=== PATIENT | male | born 1940 | race Caucasian/White ===

== ENCOUNTER 2018-08-07 15:06 | Inpatient (IN) | payer MEDICARE, SELFPAY ==
[2018-08-07] VITALS (8 sets, daily range): BP systolic 118–143; BP diastolic 60–107; PULSE 64–66; RESP 16–22; TEMP 36.7–37.9; O2SAT 92–94; BMI 33.1; BMI 32.4
--- NOTE | 2018-08-07 15:22 | EKG12_ITS ---
Test Reason : REPEAT Blood Pressure : / mmHG Vent. Rate : 065 BPM Atrial Rate : 065 BPM P-R Int : 186 ms QRS Dur : 108 ms QT Int : 454 ms P-R-T Axes : 033 -60 -62 degrees QTc Int : 472 ms Normal sinus rhythm Left axis deviation Inferior infarct , age undetermined ST & T wave abnormality, consider lateral ischemia Abnormal ECG Confirmed by BIANCA ORTIZ, ALYSSA ([id number]), editor producer FUAD MEZA ([id number]) on 08/12/2018 3:56:24 PM Referred By: Tiago Orr Confirmed By:ALYSSA VALENZUELA MD
--- NOTE | 2018-08-07 15:30 | ED.VISSUMM ---
- ER Visit Summary Date of Service: 08/07/18 Chief Complaint: [Confusion, abdominal pain] History of Present Illness: The patient is a 78 M [presents the emergency department via EMS from long-term. Patient is at the assisted living side and apparently yesterday complained of some abdominal pain and stated that he needed something to have a bowel movement. Patient did end up having a bowel movement this morning. Currently the patient does not have abdominal pain. Nursing staff today noted that he was more confused than usual in too week to ambulate and care for himself. Patient was incontinent of urine today. Patient does complain of dysuria. He has not had any vomiting or diarrhea. Patient also developed a cough yesterday. Patient denies any chest pain or shortness of breath. Patient is somewhat of a poor historian and is confused to time and place. Family states that patient has gotten this way before when he has had infections. Patient was noted to have a low-grade fever on arrival to the emergency department.] Physical Examination: [HEENT-PERRLA, EOMI. Cranial nerves II through XII grossly intact. TMs clear. Mucous membranes moist. No adenopathy. Cardiovascular-regular rate and rhythm without murmur or ectopy Lungs-clear to auscultation, chest wall stable without crepitus or subcu emphysema Abdomen-normoactive bowel sounds, soft, nontender, no rebound or rigidity, no peritoneal signs. Neuro exam-no focal weakness. NIH stroke scale is 0. Extremities-intact ?4, normal range of motion, normal pulses, atraumatic] Test Results: [EKG obtained showed a sinus rhythm with ventricular rate of 69 bpm with old inferior wall infarct noted and some nonspecific ST changes. No old EKGs available for comparison.] CBC with differential obtained showed a white count of 14.1, hemoglobin 14.8, hematocrit 45, platelets 117. Chemistries unremarkable. LFTs were normal. AST was 190. Troponin was 22. Chest x-ray was unremarkable. Urinalysis positive for infection. Emergency Department Course and Treatment: [Patient had blood cultures ordered as well as urine cultures. Patient was started on Rocephin 1 g IV. Patient was given Plavix as he is allergic to aspirin.] Treatment Plan: [Admit for further workup and evaluation. Patient did have a repeat EKG that is unchanged from the first 1.] Disposition: [Admit] Impression: [UTI Confusion Non-ST elevation CT] This note was generated with [employer] dictation software. It may contain incorrect words, spelling, and punctuation that were not noted in review of the chart prior to signing ED Disposition - Plan for ED Patient: Chief Complaint: Abd Pain Referrals: Radhames Pierce [Primary Care Provider] -
--- NOTE | 2018-08-07 15:33 | ED.DCSUM_ITS ---
- ER Visit Summary Date of Service: 08/07/18 Chief Complaint: [Confusion, abdominal pain] History of Present Illness: The patient is a 78 M [presents the emergency department via EMS from [facility]. Patient is at the assisted living side and apparently yesterday complained of some abdominal pain and stated that he needed something to have a bowel movement. Patient did end up having a bowel movement this morning. Currently the patient does not have abdominal pain. Nursing staff today noted that he was more confused than usual in too week to ambulate and care for himself. Patient was incontinent of urine today. Patient does complain of dysuria. He has not had any vomiting or diarrhea. Patient also developed a cough yesterday. Patient denies any chest pain or shortness of breath. Patient is somewhat of a poor historian and is confused to time and place. Family states that patient has gotten this way before when he has had infections. Patient was noted to have a low-grade fever on arrival to the emergency department.] Physical Examination: [HEENT-PERRLA, EOMI. Cranial nerves II through XII grossly intact. TMs clear. Mucous membranes moist. No adenopathy. Cardiovascular-regular rate and rhythm without murmur or ectopy Lungs-clear to auscultation, chest wall stable without crepitus or subcu emphysema Abdomen-normoactive bowel sounds, soft, nontender, no rebound or rigidity, no peritoneal signs. Neuro exam-no focal weakness. NIH stroke scale is 0. Extremities-intact ?4, normal range of motion, normal pulses, atraumatic] Test Results: [EKG obtained showed a sinus rhythm with ventricular rate of 69 bpm with old inferior wall infarct noted and some nonspecific ST changes. No old EKGs available for comparison.] CBC with differential obtained showed a white count of 14.1, hemoglobin 14.8, hematocrit 45, platelets 117. Chemistries unremarkable. LFTs were normal. AST was 190. Troponin was 22. Chest x-ray was unremarkable. Urinalysis positive for infection. Emergency Department Course and Treatment: [Patient had blood cultures ordered as well as urine cultures. Patient was started on Rocephin 1 g IV. Patient was given Plavix as he is allergic to aspirin.] Treatment Plan: [Admit for further workup and evaluation. Patient did have a repeat EKG that is unchanged from the first 1.] Disposition: [Admit] Impression: [UTI Confusion Non-ST elevation [place]] This note was generated with [employer] dictation software. It may contain incorrect words, spelling, and punctuation that were not noted in review of the chart prior to signing ED Disposition - Plan for ED Patient: Chief Complaint: Abd Pain Referrals: Radhames Pierce [Primary Care Provider] -
[2018-08-07] MEDS: Acetaminophen 325 MG Tablet 650 MG PO (15:41)
[2018-08-07] MEDS: 0.9% Normal Saline 1,000 ML 150 ML IV ×2 (15:43→19:41)
--- NOTE | 2018-08-07 15:52 | RAD_ITS ---
STUDY: X-RAY CHEST REASON FOR EXAM: Male, 78 years old. Shortness of breath, dyspnea, cough, confusion TECHNIQUE: Portable upright AP chest COMPARISON: None. FINDINGS: Low inspiratory effort. Clear bilateral lungs. Normal cardiomediastinal silhouette, [place] and pleural margins. No acute osseous or upper abdominal process. RAD/Chest 1 View (Portable) IMPRESSION: No acute cardiopulmonary process. Electronically Signed: Garrick Tony, at 17:02 EDT Tel , Service support ,
[2018-08-07 15:55] LABS: Absolute Lymphocyte Count 2.04 X10^3/ul (0.83-4.51); Absolute Neutrophil Count 8.7 X10^3/uL (2.0-7.7); Basophil# 0.02 X10^3/uL; Basophil% 0.1 % (0-1); Eosinophil# 0.01 X10^3/uL; Eosinophils% 0.1 % (0-5); Hematocrit 44.7 % (40-54); Hemoglobin 14.8 g/dl (13.0-16.5); Lymphocyte # 2.04 X10^3/ul (4.0); Lymphocyte % 14.4 % (19-41); Mean Corp Hgb Conc 33.1 g/gl (32-36); Mean Corpuscular Hgb 30.1 pg (27.0-32.0); Mean Corpuscular Volume 90.9 fL (80-94); Mean Platelet Vol. 9.6 fl (6.2-12.0); Monocyte# 3.35 X10^3/uL; Monocyte% 23.7 % (0-10); Neutrophil % 61.6 % (47-70); Platelet Count 117 K/mm3 (150-450); RBC Distribution Width CV 13.3 % (11.6-14.6); RBC Distribution Width SD 43.5 fl (35.1-43.9); Red Blood Count 4.92 M/mm3 (4.6-6.2); White Blood Count 14.1 K/mm3 (4.4-11.0)
[2018-08-07 16:00] LABS: Differential Indicated SCAN CRITERIA MET; POSITIVE COUNT NO; POSITIVE DIFFERENTIAL YES; POSITIVE MORPHOLOGY YES
[2018-08-07 16:22] LABS: Differential Comment SCANNED
[2018-08-07 16:29] LABS: ALB/GLOB Ratio 0.8 RATIO (0.9-2.4); AST(SGOT) 190 U/L (15-37); Alanine Aminotransfer ALT/SGPT 33 U/L (16-61); Albumin, Serum 3.5 g/dL (3.2-5.0); Alkaline Phosphatase 80 U/L (45-117); Anion Gap 5 (5-15); BUN 27 mg/dL (7-18); BUN/Creat Ratio 16.9 RATIO (10-20); Calcium,Total 8.8 mg/dL (8.5-10.1); Chloride 106 mmol/L (98-107); EST Glomerular Filtration Rate 45 mL/min (>60); Est Glom Filt Rate - Afr Amer 54 mL/min (>60); Globulin 4.2 g/dL (2.2-4.2); Glucose 112 mg/dL (74-106); Potassium 4.3 mmol/L (3.5-5.1); Protein, Total 7.7 g/dL (6.4-8.2); Sodium Level 138 mmol/L (136-145)
--- NOTE | 2018-08-07 16:38 | EKG12_ITS ---
Test Reason : ABD PAIN Blood Pressure : / mmHG Vent. Rate : 069 BPM Atrial Rate : 069 BPM P-R Int : 182 ms QRS Dur : 116 ms QT Int : 432 ms P-R-T Axes : 034 -60 -51 degrees QTc Int : 462 ms Sinus rhythm with Fusion complexes Left axis deviation Inferior infarct , age undetermined T wave abnormality, consider lateral ischemia Abnormal ECG Confirmed by BIANCA ORTIZ, ALYSSA ([id number]), story editor FUAD MEZA ([id number]) on 08/12/2018 3:56:35 PM Referred By: Tiago Orr Confirmed By:ALYSSA VALENZUELA MD
--- NOTE | 2018-08-07 16:41 | ED.RN ---
dr. jenkins aware of elevate troponin
[2018-08-07 16:44] LABS: Mucous, Urine 0 SEEN /hpf (<or=2+); Squamous Epithelial Cells - UA 0 SEEN /hpf (0-5)
[2018-08-07 16:45] LABS: Color, Urine Yellow (Yellow); Glucose, Dipstick Normal (Normal); Ketone-Dipstick Negative (Negative); Leukocyte Esterase-Dipstick 500 /ul (Negative); Nitrite-Dipstick Positive (Negative); Occult Blood-Urine 150 /ul (Negative); Protein-Dipstick 30 mg/dl (Negative); Specific Gravity, Urine 1.015 (1.002-1.030); Urine Bilirubin Dipstick Negative (Negative); Urine Clarity Cloudy (Clear); Urine Urobilinogen Normal (Normal)
[2018-08-07 16:57] LABS: Bacteria 1+ /hpf (None Seen); Red Blood Cells-Urine 5-10 SEEN /hpf (0-5); Transitional Epithelial - Ur 0-5 SEEN /hpf (0-5); White Blood Cells >100 SEEN /hpf (0-5)
[2018-08-07] MEDS: Clopidogrel Bisulfate 75 MG Tablet PO (17:13)
[2018-08-07] MEDS: Ceftriaxone 1 GM/50 ML BAG IV (17:21)
[2018-08-07] MEDS: Enoxaparin 100 MG/ML Syringe SC (17:53)
--- NOTE | 2018-08-07 18:04 | PCM.HP.STD ---
<Bret Mackey - Last Filed: 08/07/18 18:14> Problem List (1) NSTEMI (non-ST elevated myocardial infarction) Status: Acute (2) Sepsis Status: Acute (3) UTI (urinary tract infection) Status: Acute (4) HTN (hypertension) Status: Chronic History of Present Illness Date of Admission: 08/07/18 Chief Complaint: abdominal pain The patient is a 78 year old M with a PMhx of HTN who presents to the ER from Assisted Living with complaints of crampy diffuse abdominal pain and nausea for the past 3 days. He appears seems confused and is slow to respond to questions. In the ER he was found to be septic with a UTI and has significantly elevated troponin at 22 appearing c/w NSTEMI. He denies any hx of cardiac disease and states that he has no chest pain, pressure, heaviness, or tightness. He denies SOB, dizziness, LH, palpitations. He has had nausea but no vomiting. He does report some dysuria described as burning lately, and reports frequent nocturia. He denies ever having a stress test or seeing a electronic scale subassembler. He denies any family hx of cardiac disease. He does appear to have a low grade fever in the ER but denies subjective fevers or chills. When asked about his medications he is unsure what he actually takes and states that the assisted living staff take care of passing his meds. CXR is clear, EKG shows nonspecific t wave changes, this was relayed to cardiology, Dr. Dixon, who agrees to see the patient for possible heart cath in AM. [] Past Medical History Past Medical History (Chronic Problems): Chronic Problems HTN (hypertension) (Chronic) Allergies aspirin Allergy (Verified 08/07/18 15:10) Unknown Penicillins Allergy (Verified 08/07/18 15:10) Unknown Sulfa (Sulfonamide Antibiotics) Allergy (Verified 08/07/18 15:10) Unknown Home Medications: Ambulatory Orders Medication Instructions Recorded Amlodipine [Norvasc] 10 mg PO DAILY 08/07/18 Doxazosin Mesylate [Cardura] 2 mg PO QHS 08/07/18 Gabapentin [Neurontin] 300 mg PO BID 08/07/18 Losartan Potassium [Cozaar] 50 mg PO DAILY 08/07/18 Nebivolol HCl [Bystolic] 10 mg PO DAILY 08/07/18 Oxybutynin Chloride [Ditropan Xl] 10 mg PO DAILY 08/07/18 Surgical History: no surgical history Lives: Alone Smoking Status: Current every day smoker Tobacco Use: Non-smoker Alcohol: None Drugs: None - *Family History Maternal History Items: No pertinent history Paternal History Items: No pertinent history Review of Systems Constitutional: Denies: Chills, Fever, Weight Change HEENT: Denies: Head Aches, Sinus Congestion, Sinus Drainage Cardiovascular: Denies: Chest Pain, Chest Pressure, Chest Tightness, Edema, Heaviness, Light Headedness, Orthopnea, Palpitations, Paroxysmal Noc. Dyspnea, Syncope Respiratory: Reports: Cough. Denies: Shortness of Breath, Shortness of breath at rest, Shortness of breath upon exertion, Sputum production, Wheezing Gastrointestinal: Reports: Abdominal Pain, Nausea. Denies: Vomiting Genitourinary: Denies: Dysuria Musculoskeletal: Denies: Joint Pain, Joint Tenderness Skin: Denies: Rash, Wounds Neurological: Reports: Confusion. Denies: Focal weakness, Numbness, Tingling Psychiatric: Denies: Anxiety, Depression, Homicidal Ideations, Suicidal Ideations Hematologic/ Lymphatic: Denies: Easy Bruising, Easy Bleeding VTE Information - Inpt Only VTE Present on Admission: No VTE Mechan Device Prophylaxis: None VTE Pharm Prophylaxis ordered?: Yes Patient Problems: Active and Suspected Problems Sepsis (Acute) NSTEMI (non-ST elevated myocardial infarction) (Acute) UTI (urinary tract infection) (Acute) - Physical Exam General: Alert, Cooperative, Confused, Lethargic HEENT: Atraumatic, PERRLA, EOMI, Normocephalic Neck: Supple, No JVD, Negative Carotid Bruits Lungs: Clear to auscultation, Normal air movement Cardiovascular: Regular rate, No murmurs Abdomen: Bowel Sounds Present, Soft, Non Tender Extremities: No edema, Capillary Refill Less than 3 Seconds Skin: No rashes, No breakdown Musculoskeletal: No Tenderness to Palpation of Joints or Extremities Neurological: Cranial nerves II-XII grossly intact Psych/Mental Status: Normal Affect, Appropriate Vital Signs Temp Pulse Resp BP Pulse Ox 100.2 F H 66 22 H 139/61 H 93 08/07/18 15:10 08/07/18 17:14 08/07/18 17:14 08/07/18 17:14 08/07/18 17:14 Oxygen Delivery Method Room Air Weight: 218 lb Body Mass Index (BMI) 33.1 Microbiology Past 72 Hours 08/07/18 15:45 Influenza Types A,B Direct FA (LATESHA) - Final Mucosa - Nose Laboratory Tests Past 24 Hrs 08/07/18 08/07/18 08/07/18 15:40 15:40 15:40 WBC 14.1 H RBC 4.92 Hgb 14.8 Hct 44.7 MCV 90.9 MCH 30.1 MCHC 33.1 RDW 13.3 RDW Differential 43.5 Plt Count 117 L MPV 9.6 Immature Gran % (Auto) 0.100 Neut % (Auto) 61.6 Lymph % (Auto) 14.4 L Forrest % (Auto) 23.7 H Eos % (Auto) 0.1 Baso % (Auto) 0.1 Absolute Neuts (auto) 8.7 H Absolute Lymphs (auto) 2.04 Total Counted Not Reportable Differential Comment SCANNED Sodium 138 Potassium 4.3 Chloride 106 Carbon Dioxide 27.0 Anion Gap 5 BUN 27 H Creatinine 1.60 H Estim Creat Clear Calc 38.00 Est GFR (MDRD) Af Amer 54 L Est GFR (MDRD) Non-Af 45 L BUN/Creatinine Ratio 16.9 Glucose 112 H Lactic Acid Pending Calcium 8.8 Total Bilirubin 1.30 H AST 190 H ALT 33 Alkaline Phosphatase 80 Total Creatine Kinase Troponin I 22.100 H* Total Protein 7.7 Albumin 3.5 Globulin 4.2 Albumin/Globulin Ratio 0.8 L Urine Color Urine Clarity Urine pH Ur Specific [place] Urine Protein Urine Glucose (UA) Urine Ketones Urine Occult Blood Urine Nitrite Urine Bilirubin Urine Urobilinogen Ur Leukocyte Esterase Urine RBC Urine WBC Ur Squamous Epith Cells Ur Transition Epith Cell Urine Bacteria Urine Mucus 08/07/18 08/07/18 08/07/18 15:40 16:37 17:22 WBC RBC Hgb Hct MCV MCH MCHC RDW RDW Differential Plt Count MPV Immature Gran % (Auto) Neut % (Auto) Lymph % (Auto) Forrest % (Auto) Eos % (Auto) Baso % (Auto) Absolute Neuts (auto) Absolute Lymphs (auto) Total Counted Differential Comment Sodium Potassium Chloride Carbon Dioxide Anion Gap BUN Creatinine Estim Creat Clear Calc Est GFR (MDRD) Af Amer Est GFR (MDRD) Non-Af BUN/Creatinine Ratio Glucose Lactic Acid Pending Calcium Total Bilirubin AST ALT Alkaline Phosphatase Total Creatine Kinase Pending Troponin I Total Protein Albumin Globulin Albumin/Globulin Ratio Urine Color Yellow Urine Clarity Cloudy Urine pH 6.0 Ur Specific [place] 1.015 Urine Protein 30 H Urine Glucose (UA) Normal Urine Ketones Negative Urine Occult Blood 150 H Urine Nitrite Positive H Urine Bilirubin Negative Urine Urobilinogen Normal Ur Leukocyte Esterase 500 H Urine RBC 5-10 SEEN Urine WBC >100 SEEN Ur Squamous Epith Cells 0 SEEN Ur Transition Epith Cell 0-5 SEEN Urine Bacteria 1+ Urine Mucus 0 SEEN Assessment/Plan All Active Problems Sepsis (Acute) NSTEMI (non-ST elevated myocardial infarction) (Acute) UTI (urinary tract infection) (Acute) 1. Acute sepsis 2/2 acute cystitis - + UA, fever, leukocytosis, dysuria, lactate pending. Continue rocephin daily. I suspect he has underlying BPH as he is on ditropan and has frequent nocturia. Bladder scan and cath if needed. 2. NSTEMI - Trop 22, nonspecific ST changes. Denies cardiac hx. Dr. Dixon plans to possibly cath him in the AM. Cycle EKGs and Troponins. He was given 100 mg lovenox in the er and 75 of plavix. He will start heparin drip in AM, and be loaded up to 300 mg plavix to continue 75 bid tomorrow. He is allergic to aspirin. CK is also elevated at 2390. 3. MERLIN - provide IV fluids. Trend BMP 4. Acute metabolic encephalopathy 2/2 Sepsis, UTI, and MERLIN 5. HTN - stable DVT ppx: lovenox tx heparin drip in AM. This patient was seen by Bret Mackey PA-C under the supervision of Doctor Dominga. <Tiago Orr - Last Filed: 08/07/18 19:32> History of Present Illness The patient is a 78 year old M [] Past Medical History Allergies aspirin Allergy (Verified 08/07/18 15:10) Unknown Penicillins Allergy (Verified 08/07/18 15:10) Unknown Sulfa (Sulfonamide Antibiotics) Allergy (Verified 08/07/18 15:10) Unknown - Physical Exam Vital Signs Temp Pulse Resp BP Pulse Ox 98.1 F 64 16 118/60 94 08/07/18 18:43 08/07/18 18:59 08/07/18 18:43 08/07/18 18:43 08/07/18 18:43 Oxygen Delivery Method Room Air Weight: 97.069 kg Body Mass Index (BMI) 32.4 Microbiology Past 72 Hours 08/07/18 15:45 Influenza Types A,B Direct FA (LATESHA) - Final Mucosa - Nose Laboratory Tests Past 24 Hrs 08/07/18 08/07/18 08/07/18 15:40 15:40 15:40 WBC 14.1 H RBC 4.92 Hgb 14.8 Hct 44.7 MCV 90.9 MCH 30.1 MCHC 33.1 RDW 13.3 RDW Differential 43.5 Plt Count 117 L MPV 9.6 Immature Gran % (Auto) 0.100 Neut % (Auto) 61.6 Lymph % (Auto) 14.4 L Forrest % (Auto) 23.7 H Eos % (Auto) 0.1 Baso % (Auto) 0.1 Absolute Neuts (auto) 8.7 H Absolute Lymphs (auto) 2.04 Total Counted Not Reportable Differential Comment SCANNED PT INR APTT Sodium 138 Potassium 4.3 Chloride 106 Carbon Dioxide 27.0 Anion Gap 5 BUN 27 H Creatinine 1.60 H Estim Creat Clear Calc 38.00 Est GFR (MDRD) Af Amer 54 L Est GFR (MDRD) Non-Af 45 L BUN/Creatinine Ratio 16.9 Glucose 112 H Lactic Acid Pending Calcium 8.8 Total Bilirubin 1.30 H AST 190 H ALT 33 Alkaline Phosphatase 80 Total Creatine Kinase Troponin I 22.100 H* Total Protein 7.7 Albumin 3.5 Globulin 4.2 Albumin/Globulin Ratio 0.8 L Urine Color Urine Clarity Urine pH Ur Specific [place] Urine Protein Urine Glucose (UA) Urine Ketones Urine Occult Blood Urine Nitrite Urine Bilirubin Urine Urobilinogen Ur Leukocyte Esterase Urine RBC Urine WBC Ur Squamous Epith Cells Ur Transition Epith Cell Urine Bacteria Urine Mucus 08/07/18 08/07/18 08/07/18 15:40 16:37 17:22 WBC RBC Hgb Hct MCV MCH MCHC RDW RDW Differential Plt Count MPV Immature Gran % (Auto) Neut % (Auto) Lymph % (Auto) Forrest % (Auto) Eos % (Auto) Baso % (Auto) Absolute Neuts (auto) Absolute Lymphs (auto) Total Counted Differential Comment PT INR APTT Sodium Potassium Chloride Carbon Dioxide Anion Gap BUN Creatinine Estim Creat Clear Calc Est GFR (MDRD) Af Amer Est GFR (MDRD) Non-Af BUN/Creatinine Ratio Glucose Lactic Acid 1.2 Calcium Total Bilirubin AST ALT Alkaline Phosphatase Total Creatine Kinase 2390 H Troponin I Total Protein Albumin Globulin Albumin/Globulin Ratio Urine Color Yellow Urine Clarity Cloudy Urine pH 6.0 Ur Specific [place] 1.015 Urine Protein 30 H Urine Glucose (UA) Normal Urine Ketones Negative Urine Occult Blood 150 H Urine Nitrite Positive H Urine Bilirubin Negative Urine Urobilinogen Normal Ur Leukocyte Esterase 500 H Urine RBC 5-10 SEEN Urine WBC >100 SEEN Ur Squamous Epith Cells 0 SEEN Ur Transition Epith Cell 0-5 SEEN Urine Bacteria 1+ Urine Mucus 0 SEEN 08/07/18 08/07/18 08/07/18 18:41 18:41 18:41 WBC RBC Hgb Hct MCV MCH MCHC RDW RDW Differential Plt Count MPV Immature Gran % (Auto) Neut % (Auto) Lymph % (Auto) Forrest % (Auto) Eos % (Auto) Baso % (Auto) Absolute Neuts (auto) Absolute Lymphs (auto) Total Counted Differential Comment PT 16.3 H INR 1.3 APTT 46.4 H Sodium Potassium Chloride Carbon Dioxide Anion Gap BUN Creatinine Estim Creat Clear Calc Est GFR (MDRD) Af Amer Est GFR (MDRD) Non-Af BUN/Creatinine Ratio Glucose Lactic Acid Calcium Total Bilirubin AST ALT Alkaline Phosphatase Total Creatine Kinase Troponin I 21.000 H* Total Protein Albumin Globulin Albumin/Globulin Ratio Urine Color Urine Clarity Urine pH Ur Specific [place] Urine Protein Urine Glucose (UA) Urine Ketones Urine Occult Blood Urine Nitrite Urine Bilirubin Urine Urobilinogen Ur Leukocyte Esterase Urine RBC Urine WBC Ur Squamous Epith Cells Ur Transition Epith Cell Urine Bacteria Urine Mucus Assessment/Plan Patient seen and examined independently of Bret LEMONS Case and plan of care also discussed in detail Essential components to exam confirmed as well 1. Sepsis from complicated UTI 2. NSTEMI. HBW and cardiology consulted 3. MERLIN. likely from sepsis and volume depletion. Will replete volume 4. Need to r/o rhabdomyolysis as well. Check CPK
[2018-08-07 18:08] LABS: CPK Total, Creatine Kinase 2390 U/L (39-308)
[2018-08-07 18:08] LABS: Lactic Acid 1.2 mmol/L (0.4-2.0)
--- NOTE | 2018-08-07 18:30 | EKG12_ITS ---
Test Reason : CHEST PAIN Blood Pressure : / mmHG Vent. Rate : 065 BPM Atrial Rate : 065 BPM P-R Int : 184 ms QRS Dur : 108 ms QT Int : 444 ms P-R-T Axes : 047 -52 -59 degrees QTc Int : 461 ms Normal sinus rhythm Left anterior fascicular block Inferior infarct , age undetermined ST & T wave abnormality, consider lateral ischemia Abnormal ECG When compared with ECG of 07-AUG-2018 18:44, MANUAL COMPARISON REQUIRED, DATA IS UNCONFIRMED Confirmed by BIANCA ORTIZ, ALYSSA ([id number]), general expeditor FUAD MEZA ([id number]) on 08/12/2018 4:06:46 PM Referred By: Tiago Orr Confirmed By:ALYSSA VALENZUELA MD
[2018-08-07 19:00] LABS: Partial Thromboplast Time 46.4 Seconds (24.1-36.2)
[2018-08-07 19:16] LABS: International Normalized Ratio 1.3; Prothrombin Time (Protime)PT. 16.3 SECONDS (11.7-14.9)
--- NOTE | 2018-08-07 20:07 | NURSING ---
heparin bolus prior to heparin gtt and plavix loading dose late d/t scheduling issues with pharmacy. This RN spoke with Dr. Dixon to clarify orders. See documentation.
[2018-08-07] MEDS: Heparin Injection (Vial) 5,000 UNIT/ML VIAL 7500 UNIT IV (20:24)
[2018-08-07] MEDS: HEPARIN/D5w 25,000 UNITS 25,000 UNITS/250 ML IV.SOLN. 14 UNITS IV (20:25)
[2018-08-07] MEDS: Clopidogrel Bisulfate 75 MG Tablet 225 MG PO (20:25)
--- NOTE | 2018-08-07 21:00 | EKG12_ITS ---
Test Reason : ADMISSION EKG Blood Pressure : / mmHG Vent. Rate : 063 BPM Atrial Rate : 063 BPM P-R Int : 190 ms QRS Dur : 106 ms QT Int : 456 ms P-R-T Axes : 026 -55 -56 degrees QTc Int : 466 ms Normal sinus rhythm Left axis deviation Inferior infarct , age undetermined ST & T wave abnormality, consider lateral ischemia Abnormal ECG When compared with ECG of 07-AUG-2018 16:42, MANUAL COMPARISON REQUIRED, DATA IS UNCONFIRMED Confirmed by BIANCA ORTIZ, ALYSSA ([id number]), food expeditor FUAD MEZA ([id number]) on 08/12/2018 4:07:19 PM Referred By: Tiaog Orr Confirmed By:ALYSSA VALENZUELA MD
[2018-08-08] VITALS (11 sets, daily range): BP systolic 116–149; BP diastolic 65–72; PULSE 62–73; RESP 14–20; TEMP 37–38.1; O2SAT 92–96
[2018-08-08 03:23] LABS: International Normalized Ratio 1.4; Prothrombin Time (Protime)PT. 17.6 SECONDS (11.7-14.9)
[2018-08-08 03:32] LABS: Partial Thromboplast Time 101.2 Seconds (24.1-36.2)
[2018-08-08 03:33] LABS: Absolute Lymphocyte Count 1.68 X10^3/ul (0.83-4.51); Absolute Neutrophil Count 8.1 X10^3/uL (2.0-7.7); Basophil# 0.02 X10^3/uL; Basophil% 0.2 % (0-1); Eosinophil# 0.02 X10^3/uL; Eosinophils% 0.2 % (0-5); Hematocrit 40.8 % (40-54); Lymphocyte # 1.68 X10^3/ul (4.0); Lymphocyte % 13.3 % (19-41); Mean Corp Hgb Conc 34.3 g/gl (32-36); Mean Corpuscular Hgb 30.8 pg (27.0-32.0); Mean Corpuscular Volume 89.7 fL (80-94); Mean Platelet Vol. 9.7 fl (6.2-12.0); Monocyte# 2.76 X10^3/uL; Monocyte% 21.9 % (0-10); Platelet Count 107 K/mm3 (150-450); RBC Distribution Width CV 13.2 % (11.6-14.6); RBC Distribution Width SD 42.6 fl (35.1-43.9); Red Blood Count 4.55 M/mm3 (4.6-6.2); White Blood Count 12.6 K/mm3 (4.4-11.0)
[2018-08-08 03:38] LABS: Differential Indicated SCAN CRITERIA MET; POSITIVE COUNT NO; POSITIVE DIFFERENTIAL YES; POSITIVE MORPHOLOGY NO
[2018-08-08] MEDS: 0.9% Normal Saline 1,000 ML 150 ML IV ×3 (05:51→18:20)
--- NOTE | 2018-08-08 05:55 | EKG12_ITS ---
Test Reason : AM EKG Blood Pressure : / mmHG Vent. Rate : 063 BPM Atrial Rate : 063 BPM P-R Int : 176 ms QRS Dur : 132 ms QT Int : 442 ms P-R-T Axes : 039 -79 -40 degrees QTc Int : 452 ms Sinus rhythm with Fusion complexes Left axis deviation Right bundle branch block Inferior infarct , age undetermined Abnormal ECG When compared with ECG of 07-AUG-2018 22:43, MANUAL COMPARISON REQUIRED, DATA IS UNCONFIRMED Confirmed by BIANCA ORTIZ, ALYSSA ([id number]), graphics editor FUAD MEZA ([id number]) on 08/12/2018 4:04:43 PM Referred By: Tiago Orr Confirmed By:ALYSSA VALENZUELA MD
[2018-08-08 07:03] LABS: Anion Gap 10 (5-15); BUN 30 mg/dL (7-18); BUN/Creat Ratio 21.6 RATIO (10-20); Calcium,Total 8.3 mg/dL (8.5-10.1); Chloride 110 mmol/L (98-107); Creatinine, Serum 1.39 mg/dL (0.70-1.30); EST Glomerular Filtration Rate 53 mL/min (>60); Est Glom Filt Rate - Afr Amer 64 mL/min (>60); Estimated Creatinine Clearance 43.74 ml/min; Glucose 104 mg/dL (74-106); Potassium 3.8 mmol/L (3.5-5.1); Sodium Level 142 mmol/L (136-145)
--- NOTE | 2018-08-08 08:04 | ECHOD_ITS ---
Reason For Study: CAD/ASHD Procedure This was a 2D Doppler, Color Flow transthoracic echocardiogram. Technically difficult study, patient was unable to follow directions for optimal images. Exam performed portable in patient room. Left Ventricle Normal size and thickness. The estimated ejection fraction is 40-45 %. Stage 1 diastolic dysfunction. Septal motion consistent with IVCD. Posterior-Basal: Akinetic. Mid-Inferior: Akinetic. Right Ventricle Normal size and thickness. Normal systolic function. Atria The left atrium is mildly enlarged. Normal right atrium. Normal atrial septum. Mitral Valve The mitral valve is structurally normal. No prolapse or stenosis seen. Trivial mitral valve insufficiency. Tricuspid Valve Normal tricuspid valve. Unable to estimate RV systolic pressure due to inadequate jet, pulmonary artery pressure probably normal. Aortic Valve Trisinus/trileaflet aortic valve. Pulmonic Valve Normal pulmonic valve. Great Vessels Normal aortic root. Normal arch. Normal inferior vena cava. Inferior vena cava collapse with sniff. Pericardium/Pleural No pericardial effusion. MMode/2D Measurements & Calculations LVIDd: 4.0 cm IVSd: 1.5 cm Ao root diam: 3.5 cm LVIDs: 3.3 cm LVPWd: 1.0 cm LA dimension: 4.2 cm FS: 17.5 % LAV(MOD-sp4): 66.2 ml LVAd ap4: 30.7 cm2 SV(MOD-sp4): 49.5 ml EDV(MOD-sp4): 90.8 ml EDV(sp4-el): 91.8 ml LVAs ap4: 18.7 cm2 ESV(MOD-sp4): 41.3 ml ESV(sp4-el): 42.2 ml EF(MOD-sp4): 54.5 % EF(sp4-el): 54.0 % SV(sp4-el): 49.6 ml LA A4 area: 20.5 cm2 RA A4 area: 12.1 cm2 Time Measurements MV dec time: 0.19 sec Doppler Measurements & Calculations MV E max jake: 71.4 cm/sec Med Peak E' Jake: 7.3 cm/sec MV V2 max: 123.3 cm/sec MV A max jake: 87.3 cm/sec E/E' med: 9.8 MV max P.1 mmHg MV E/A: 0.82 MV V2 mean: 62.8 cm/sec MV mean P.9 mmHg MV V2 VTI: 26.6 cm MV P1/2t max jake: 92.5 cm/sec Ao V2 max: 123.8 cm/sec LV V1 max: 90.0 cm/sec MV P1/2t: 55.6 msec Ao max P.1 mmHg LV V1 max P.2 mmHg MV dec slope: 486.7 cm/sec2 Ao V2 mean: 74.9 cm/sec LV V1 mean P.4 mmHg MVA(P1/2t): 4.0 cm2 Ao mean P.7 mmHg LV V1 mean: 52.4 cm/sec Ao V2 VTI: 24.5 cm LV V1 VTI: 17.6 cm MR max jake: 464.7 cm/sec PA V2 max: 86.7 cm/sec MR max P.4 mmHg MR mean jake: 379.4 cm/sec MR mean P.9 mmHg MR VTI: 177.9 cm Interpretation Summary The estimated ejection fraction is 40-45 %. Stage 1 diastolic dysfunction. Trivial mitral valve insufficiency. Unable to estimate RV systolic pressure due to inadequate jet, pulmonary artery pressure probably normal. There is no comparison study available. The study was technically difficult. Ordering Physician: Jameel Dixon Referring Physician: Tiago Orr Performed By: Issac Villavicencio RCS
--- NOTE | 2018-08-08 08:46 | CASEMGMT ---
SW reviewed chart and patient is from assisted living at [facility]. SW spoke with patient's family and they confirmed patient is from assisted living at [facility]. SW told them SW will follow and assist with d/c back to [place] or to SNF if he will need higher level of care. SW also told them SW keeps in contact with the assisted living facility as well. Madelin GOFF MSW
--- NOTE | 2018-08-08 08:52 | CASEMGMT ---
FANY faxed updates to Andrew at [facility]. Madelin GOFF [employer]
[2018-08-08] MEDS: Ceftriaxone 1 GM/50 ML BAG IV (10:08)
--- NOTE | 2018-08-08 10:32 | PCM.PROGNOTE ---
<eJnnifer Lewis - Last Filed: 08/08/18 11:07> Patient Problems: Active and Suspected Problems Sepsis (Acute) NSTEMI (non-ST elevated myocardial infarction) (Acute) UTI (urinary tract infection) (Acute) Subjective: Patient seen and examined. States he feels fine. Denies fever, chills. Denies chest pain. Denies abdominal pain, flank pain. Family at bedside state patient is not himself. They note similar presentation during prior UTI with altered mental status, weakness. Family states patient currently resides in assisted living and is on the verge of needing SNF due to chronic debility. They state patient has had prior back surgeries that have led to chronic debility. - Physical Exam General: Alert, Oriented x3, Cooperative HEENT: Atraumatic, PERRLA, EOMI, Normocephalic Neck: Supple, No JVD, Negative Carotid Bruits Lungs: Clear to auscultation, Normal air movement Cardiovascular: Regular rate, Regular Rhythm, Normal S1, Normal S2, No murmurs Abdomen: Bowel Sounds Present, Soft, Non Tender, Non-Distended Extremities: No clubbing, No cyanosis, No edema, Capillary Refill Less than 3 Seconds Skin: No rashes, No breakdown Musculoskeletal: No Tenderness to Palpation of Joints or Extremities Neurological: Cranial nerves II-XII grossly intact, Neuro grossly intact Psych/Mental Status: Normal Affect, Appropriate Vital Signs Temp Pulse Resp BP Pulse Ox 98.6 F 73 18 121/68 H 96 08/08/18 10:04 08/08/18 10:04 08/08/18 10:04 08/08/18 10:04 08/08/18 10:04 Oxygen Delivery Method Room Air Weight: 214 lb Body Mass Index (BMI) 32.4 Intake and Output for Last 24 Hours 08/06/18 08/07/18 08/08/18 23:59 23:59 23:59 Intake Total 190.7 / 190.7 678 / 678 Balance 190.7 / 190.7 678 / 678 Microbiology Past 72 Hours 08/07/18 15:45 Influenza Types A,B Direct FA (LATESHA) - Final Mucosa - Nose Laboratory Tests Past 24 Hrs 08/07/18 08/07/18 08/07/18 15:40 15:40 15:40 WBC 14.1 H RBC 4.92 Hgb 14.8 Hct 44.7 MCV 90.9 MCH 30.1 MCHC 33.1 RDW 13.3 RDW Differential 43.5 Plt Count 117 L MPV 9.6 Immature Gran % (Auto) 0.100 Neut % (Auto) 61.6 Lymph % (Auto) 14.4 L [place] % (Auto) 23.7 H Eos % (Auto) 0.1 Baso % (Auto) 0.1 Absolute Neuts (auto) 8.7 H Absolute Lymphs (auto) 2.04 Total Counted Not Reportable Differential Comment SCANNED PT INR APTT Sodium 138 Potassium 4.3 Chloride 106 Carbon Dioxide 27.0 Anion Gap 5 BUN 27 H Creatinine 1.60 H Estim Creat Clear Calc 38.00 Est GFR (MDRD) Af Amer 54 L Est GFR (MDRD) Non-Af 45 L BUN/Creatinine Ratio 16.9 Glucose 112 H Lactic Acid Cancelled Calcium 8.8 Total Bilirubin 1.30 H AST 190 H ALT 33 Alkaline Phosphatase 80 Total Creatine Kinase Troponin I 22.100 H* Total Protein 7.7 Albumin 3.5 Globulin 4.2 Albumin/Globulin Ratio 0.8 L Urine Color Urine Clarity Urine pH Ur Specific [place] Urine Protein Urine Glucose (UA) Urine Ketones Urine Occult Blood Urine Nitrite Urine Bilirubin Urine Urobilinogen Ur Leukocyte Esterase Urine RBC Urine WBC Ur Squamous Epith Cells Ur Transition Epith Cell Urine Bacteria Urine Mucus 08/07/18 08/07/18 08/07/18 15:40 16:37 17:22 WBC RBC Hgb Hct MCV MCH MCHC RDW RDW Differential Plt Count MPV Immature Gran % (Auto) Neut % (Auto) Lymph % (Auto) [place] % (Auto) Eos % (Auto) Baso % (Auto) Absolute Neuts (auto) Absolute Lymphs (auto) Total Counted Differential Comment PT INR APTT Sodium Potassium Chloride Carbon Dioxide Anion Gap BUN Creatinine Estim Creat Clear Calc Est GFR (MDRD) Af Amer Est GFR (MDRD) Non-Af BUN/Creatinine Ratio Glucose Lactic Acid 1.2 Calcium Total Bilirubin AST ALT Alkaline Phosphatase Total Creatine Kinase 2390 H Troponin I Total Protein Albumin Globulin Albumin/Globulin Ratio Urine Color Yellow Urine Clarity Cloudy Urine pH 6.0 Ur Specific [place] 1.015 Urine Protein 30 H Urine Glucose (UA) Normal Urine Ketones Negative Urine Occult Blood 150 H Urine Nitrite Positive H Urine Bilirubin Negative Urine Urobilinogen Normal Ur Leukocyte Esterase 500 H Urine RBC 5-10 SEEN Urine WBC >100 SEEN Ur Squamous Epith Cells 0 SEEN Ur Transition Epith Cell 0-5 SEEN Urine Bacteria 1+ Urine Mucus 0 SEEN 08/07/18 08/07/18 08/07/18 18:41 18:41 18:41 WBC RBC Hgb Hct MCV MCH MCHC RDW RDW Differential Plt Count MPV Immature Gran % (Auto) Neut % (Auto) Lymph % (Auto) [place] % (Auto) Eos % (Auto) Baso % (Auto) Absolute Neuts (auto) Absolute Lymphs (auto) Total Counted Differential Comment PT 16.3 H INR 1.3 APTT 46.4 H Sodium Potassium Chloride Carbon Dioxide Anion Gap BUN Creatinine Estim Creat Clear Calc Est GFR (MDRD) Af Amer Est GFR (MDRD) Non-Af BUN/Creatinine Ratio Glucose Lactic Acid Calcium Total Bilirubin AST ALT Alkaline Phosphatase Total Creatine Kinase Troponin I 21.000 H* Total Protein Albumin Globulin Albumin/Globulin Ratio Urine Color Urine Clarity Urine pH Ur Specific [place] Urine Protein Urine Glucose (UA) Urine Ketones Urine Occult Blood Urine Nitrite Urine Bilirubin Urine Urobilinogen Ur Leukocyte Esterase Urine RBC Urine WBC Ur Squamous Epith Cells Ur Transition Epith Cell Urine Bacteria Urine Mucus 08/07/18 08/08/18 08/08/18 21:40 02:55 02:55 WBC 12.6 H RBC 4.55 L Hgb 14.0 Hct 40.8 MCV 89.7 MCH 30.8 MCHC 34.3 RDW 13.2 RDW Differential 42.6 Plt Count 107 L MPV 9.7 Immature Gran % (Auto) 0.400 Neut % (Auto) 64.0 Lymph % (Auto) 13.3 L [place] % (Auto) 21.9 H Eos % (Auto) 0.2 Baso % (Auto) 0.2 Absolute Neuts (auto) 8.1 H Absolute Lymphs (auto) 1.68 Total Counted Not Reportable Differential Comment PT 17.6 H INR 1.4 APTT 101.2 H* Sodium Potassium Chloride Carbon Dioxide Anion Gap BUN Creatinine Estim Creat Clear Calc Est GFR (MDRD) Af Amer Est GFR (MDRD) Non-Af BUN/Creatinine Ratio Glucose Lactic Acid Calcium Total Bilirubin AST ALT Alkaline Phosphatase Total Creatine Kinase Troponin I 19.800 H* Total Protein Albumin Globulin Albumin/Globulin Ratio Urine Color Urine Clarity Urine pH Ur Specific [place] Urine Protein Urine Glucose (UA) Urine Ketones Urine Occult Blood Urine Nitrite Urine Bilirubin Urine Urobilinogen Ur Leukocyte Esterase Urine RBC Urine WBC Ur Squamous Epith Cells Ur Transition Epith Cell Urine Bacteria Urine Mucus 08/08/18 05:10 WBC RBC Hgb Hct MCV MCH MCHC RDW RDW Differential Plt Count MPV Immature Gran % (Auto) Neut % (Auto) Lymph % (Auto) [place] % (Auto) Eos % (Auto) Baso % (Auto) Absolute Neuts (auto) Absolute Lymphs (auto) Total Counted Differential Comment PT INR APTT Sodium 142 Potassium 3.8 Chloride 110 H Carbon Dioxide 22.0 Anion Gap 10 BUN 30 H Creatinine 1.39 H Estim Creat Clear Calc 43.74 Est GFR (MDRD) Af Amer 64 Est GFR (MDRD) Non-Af 53 L BUN/Creatinine Ratio 21.6 H Glucose 104 Lactic Acid Calcium 8.3 L Total Bilirubin AST ALT Alkaline Phosphatase Total Creatine Kinase Troponin I Total Protein Albumin Globulin Albumin/Globulin Ratio Urine Color Urine Clarity Urine pH Ur Specific [place] Urine Protein Urine Glucose (UA) Urine Ketones Urine Occult Blood Urine Nitrite Urine Bilirubin Urine Urobilinogen Ur Leukocyte Esterase Urine RBC Urine WBC Ur Squamous Epith Cells Ur Transition Epith Cell Urine Bacteria Urine Mucus Medical Necessity - Tobacco Use Smoking Status: Never smoker Tobacco Use: Non-smoker Assessment/Plan All Active Problems Sepsis (Acute) NSTEMI (non-ST elevated myocardial infarction) (Acute) UTI (urinary tract infection) (Acute) 1. Acute sepsis secondary to acute suspected gram negative cystitis with associated hematuria-UA positive on admission. Urine and blood cultures pending. Continue IV Rocephin. Mental status slowly improving. Truong in place. Urology consulted for hematuria. Hold anticoagulation until evaluated by urology. 2. Acute kidney injury on chronic kidney disease stage III-improving. Continue IV fluids. Trend BMP. 3. Acute metabolic encephalopathy secondary to #1/#2. Improving. 4. BPH-continue home doxazosin, oxybutynin. 5. NSTEMI- Dr. Dixon consulted. Plan for cath tomorrow. Patient denies chest pain. Anticoagulation on hold given hematuria. EKG with nonspecific ST changes. Echo pending. 6. Hypertension-continue home amlodipine regimen. Losartan on hold secondary to #2. DVT prophylaxis- SCDs. Anticoagulation on hold given hematuria. Discharge planning: Return to assisted living versus SNF. Case management consult. PT/OT. This patient was seen by AZRA Gallo under the supervision of Dr. Hand. <Noel Hand - Last Filed: 08/08/18 13:08> - Physical Exam Vital Signs Temp Pulse Resp BP Pulse Ox 98.7 F 67 18 116/70 94 08/08/18 12:14 08/08/18 12:14 08/08/18 12:14 08/08/18 12:14 08/08/18 12:14 Oxygen Delivery Method Room Air Weight: 97.069 kg Body Mass Index (BMI) 32.4 Intake and Output for Last 24 Hours 08/06/18 08/07/18 08/08/18 23:59 23:59 23:59 Intake Total 190.7 / 190.7 1876 / 1876 Output Total 200 / 200 Balance 190.7 / 190.7 1676 / 1676 Microbiology Past 72 Hours 08/07/18 15:45 Influenza Types A,B Direct FA (LATESHA) - Final Mucosa - Nose Laboratory Tests Past 24 Hrs 08/07/18 08/07/18 08/07/18 15:40 15:40 15:40 WBC 14.1 H RBC 4.92 Hgb 14.8 Hct 44.7 MCV 90.9 MCH 30.1 MCHC 33.1 RDW 13.3 RDW Differential 43.5 Plt Count 117 L MPV 9.6 Immature Gran % (Auto) 0.100 Neut % (Auto) 61.6 Lymph % (Auto) 14.4 L [place] % (Auto) 23.7 H Eos % (Auto) 0.1 Baso % (Auto) 0.1 Absolute Neuts (auto) 8.7 H Absolute Lymphs (auto) 2.04 Total Counted Not Reportable Differential Comment SCANNED PT INR APTT Sodium 138 Potassium 4.3 Chloride 106 Carbon Dioxide 27.0 Anion Gap 5 BUN 27 H Creatinine 1.60 H Estim Creat Clear Calc 38.00 Est GFR (MDRD) Af Amer 54 L Est GFR (MDRD) Non-Af 45 L BUN/Creatinine Ratio 16.9 Glucose 112 H Lactic Acid Cancelled Calcium 8.8 Total Bilirubin 1.30 H AST 190 H ALT 33 Alkaline Phosphatase 80 Total Creatine Kinase Troponin I 22.100 H* Total Protein 7.7 Albumin 3.5 Globulin 4.2 Albumin/Globulin Ratio 0.8 L Urine Color Urine Clarity Urine pH Ur Specific [place] Urine Protein Urine Glucose (UA) Urine Ketones Urine Occult Blood Urine Nitrite Urine Bilirubin Urine Urobilinogen Ur Leukocyte Esterase Urine RBC Urine WBC Ur Squamous Epith Cells Ur Transition Epith Cell Urine Bacteria Urine Mucus 08/07/18 08/07/18 08/07/18 15:40 16:37 17:22 WBC RBC Hgb Hct MCV MCH MCHC RDW RDW Differential Plt Count MPV Immature Gran % (Auto) Neut % (Auto) Lymph % (Auto) [place] % (Auto) Eos % (Auto) Baso % (Auto) Absolute Neuts (auto) Absolute Lymphs (auto) Total Counted Differential Comment PT INR APTT Sodium Potassium Chloride Carbon Dioxide Anion Gap BUN Creatinine Estim Creat Clear Calc Est GFR (MDRD) Af Amer Est GFR (MDRD) Non-Af BUN/Creatinine Ratio Glucose Lactic Acid 1.2 Calcium Total Bilirubin AST ALT Alkaline Phosphatase Total Creatine Kinase 2390 H Troponin I Total Protein Albumin Globulin Albumin/Globulin Ratio Urine Color Yellow Urine Clarity Cloudy Urine pH 6.0 Ur Specific [place] 1.015 Urine Protein 30 H Urine Glucose (UA) Normal Urine Ketones Negative Urine Occult Blood 150 H Urine Nitrite Positive H Urine Bilirubin Negative Urine Urobilinogen Normal Ur Leukocyte Esterase 500 H Urine RBC 5-10 SEEN Urine WBC >100 SEEN Ur Squamous Epith Cells 0 SEEN Ur Transition Epith Cell 0-5 SEEN Urine Bacteria 1+ Urine Mucus 0 SEEN 08/07/18 08/07/18 08/07/18 18:41 18:41 18:41 WBC RBC Hgb Hct MCV MCH MCHC RDW RDW Differential Plt Count MPV Immature Gran % (Auto) Neut % (Auto) Lymph % (Auto) [place] % (Auto) Eos % (Auto) Baso % (Auto) Absolute Neuts (auto) Absolute Lymphs (auto) Total Counted Differential Comment PT 16.3 H INR 1.3 APTT 46.4 H Sodium Potassium Chloride Carbon Dioxide Anion Gap BUN Creatinine Estim Creat Clear Calc Est GFR (MDRD) Af Amer Est GFR (MDRD) Non-Af BUN/Creatinine Ratio Glucose Lactic Acid Calcium Total Bilirubin AST ALT Alkaline Phosphatase Total Creatine Kinase Troponin I 21.000 H* Total Protein Albumin Globulin Albumin/Globulin Ratio Urine Color Urine Clarity Urine pH Ur Specific [place] Urine Protein Urine Glucose (UA) Urine Ketones Urine Occult Blood Urine Nitrite Urine Bilirubin Urine Urobilinogen Ur Leukocyte Esterase Urine RBC Urine WBC Ur Squamous Epith Cells Ur Transition Epith Cell Urine Bacteria Urine Mucus 08/07/18 08/08/18 08/08/18 21:40 02:55 02:55 WBC 12.6 H RBC 4.55 L Hgb 14.0 Hct 40.8 MCV 89.7 MCH 30.8 MCHC 34.3 RDW 13.2 RDW Differential 42.6 Plt Count 107 L MPV 9.7 Immature Gran % (Auto) 0.400 Neut % (Auto) 64.0 Lymph % (Auto) 13.3 L [place] % (Auto) 21.9 H Eos % (Auto) 0.2 Baso % (Auto) 0.2 Absolute Neuts (auto) 8.1 H Absolute Lymphs (auto) 1.68 Total Counted Not Reportable Differential Comment PT 17.6 H INR 1.4 APTT 101.2 H* Sodium Potassium Chloride Carbon Dioxide Anion Gap BUN Creatinine Estim Creat Clear Calc Est GFR (MDRD) Af Amer Est GFR (MDRD) Non-Af BUN/Creatinine Ratio Glucose Lactic Acid Calcium Total Bilirubin AST ALT Alkaline Phosphatase Total Creatine Kinase Troponin I 19.800 H* Total Protein Albumin Globulin Albumin/Globulin Ratio Urine Color Urine Clarity Urine pH Ur Specific [place] Urine Protein Urine Glucose (UA) Urine Ketones Urine Occult Blood Urine Nitrite Urine Bilirubin Urine Urobilinogen Ur Leukocyte Esterase Urine RBC Urine WBC Ur Squamous Epith Cells Ur Transition Epith Cell Urine Bacteria Urine Mucus 08/08/18 05:10 WBC RBC Hgb Hct MCV MCH MCHC RDW RDW Differential Plt Count MPV Immature Gran % (Auto) Neut % (Auto) Lymph % (Auto) [place] % (Auto) Eos % (Auto) Baso % (Auto) Absolute Neuts (auto) Absolute Lymphs (auto) Total Counted Differential Comment PT INR APTT Sodium 142 Potassium 3.8 Chloride 110 H Carbon Dioxide 22.0 Anion Gap 10 BUN 30 H Creatinine 1.39 H Estim Creat Clear Calc 43.74 Est GFR (MDRD) Af Amer 64 Est GFR (MDRD) Non-Af 53 L BUN/Creatinine Ratio 21.6 H Glucose 104 Lactic Acid Calcium 8.3 L Total Bilirubin AST ALT Alkaline Phosphatase Total Creatine Kinase Troponin I Total Protein Albumin Globulin Albumin/Globulin Ratio Urine Color Urine Clarity Urine pH Ur Specific [place] Urine Protein Urine Glucose (UA) Urine Ketones Urine Occult Blood Urine Nitrite Urine Bilirubin Urine Urobilinogen Ur Leukocyte Esterase Urine RBC Urine WBC Ur Squamous Epith Cells Ur Transition Epith Cell Urine Bacteria Urine Mucus Assessment/Plan This patient was seen in conjunction with AZRA Gallo . I have independently interviewed and examined the patient and reviewed pertinent historical, laboratory, and other data. Please refer to AZRA Gallo note for details of this patient's presentation, findings, and recommendations. I have reviewed AZRA Gallo note and concur with documented findings. In brief, patient is a 78-year-old lady who presented with abdominal pain associated with altered mental status. He was also found to have elevated troponin on admission Physical Examination: GENERAL: Affect HEENT: Atraumatic; EYES; Anicteric, NECK; supple, normal thyroid, RESPIRATORY: Diminished to auscultation bilaterally, CARDIOVASCULAR: Regular S1 S2, no audible murmurs : No Renal angle tenderness; Truong catheter in place EXTREMITIES: No edema, no clubbing, NEURO: Awake; no lateralizing signs. SKIN: No Rash PSYCH; Normal affect Assessment: 1. Sepsis secondary to acute cystitis 2. Hematuria secondary to cystitis as well as systemic use of anticoagulation 3. Acute kidney injury 4. Chronic kidney disease stage III 5. Acute metabolic encephalopathy secondary to acute kidney injury 6. Acute non-STEMI cardiology consulted 7. BPH 8. Hypertension Recommendations: 1. I have discussed the results of my overview and impressions with the patient 2. Options for management were reviewed Code Visit Inpatient E&M: 22050 Subs Hosp L3
--- NOTE | 2018-08-08 11:57 | CON.PCM_ITS ---
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 Patient has minimal ambulation at the assisted living center. He has no known history of coronary artery disease. He is a nondiabetic, quit smoking many years ago. Patient has struggled with multiple UTIs in the past, and has urinary incontinence as a result of his back surgeries. Patient has never had a stress test or catheterization and that his heart was healthy. The patient was doing well up into the last several days when he began noticing confusion, and weakness. He was brought to the emergency room where an EKG was performed which showed normal sinus rhythm with evidence of recent inferior posterior wall myocardial infarction. His initial troponin was 22. He was also felt to have a urinary tract infection was treated with antibiotic therapy. Patient was treated with Lovenox followed by IV heparin therapy as well as being loaded with Plavix. Patient soon developed what appeared to be old blood clots in his urine, and a Truong catheter was placed with presented with alexander hematuria, consistent with probable old blood. His heparin drip was discontinued and his Plavix was held. Currently the patient is sitting in bed, has evidence of possible Alonso-Doll type breathing, and occasionally picks at his wrist bands. According to the family this is a significant difference in his mental status over his baseline but is consistent with previous urinary tract infections in the past. He denied any chest pain or anginal, shortness of breath or dyspnea in the recent past. [] Past Medical History Allergies/Adverse Reactions: Allergies aspirin Allergy (Verified 08/07/18 15:10) Unknown Penicillins Allergy (Verified 08/07/18 15:10) Unknown Sulfa (Sulfonamide Antibiotics) Allergy (Verified 08/07/18 15:10) Unknown Home Medications: Ambulatory Orders Medication Instructions Recorded Amlodipine [Norvasc] 10 mg PO DAILY 08/07/18 Doxazosin Mesylate [Cardura] 2 mg PO QHS 08/07/18 Gabapentin [Neurontin] 300 mg PO BID 08/07/18 Losartan Potassium [Cozaar] 50 mg PO DAILY 08/07/18 Nebivolol HCl [Bystolic] 10 mg PO DAILY 08/07/18 Oxybutynin Chloride [Ditropan Xl] 10 mg PO DAILY 08/07/18 Past Medical History (Chronic Problems): Chronic Problems HTN (hypertension) (Chronic) Surgical History: no surgical history - *Family History Maternal History Items: No pertinent history Paternal History Items: No pertinent history Lives: Alone Smoking Status: Never smoker Tobacco Use: Non-smoker Alcohol: None Drugs: None Review of Systems - Review of Systems General: Denies: Fever, Night Sweats, Fatigue Cardiovascular: Reports: Shortness of Breath at Rest. Denies: Chest Discomfort, Shortness of Breath, Orthopnea, PND, Peripheral Edema, Palpitations, Lightheadedness, Dizziness, Near Syncope, Syncope Respiratory: Denies: Cough, Sputum Production, Hemoptysis Gastrointestinal: Denies: Hematemesis, Hematochezia, Melena Genitourinary: Denies: Dysuria, Hematuria Skin: Denies: Rash Objective: Vital Signs Temp Pulse Resp BP Pulse Ox 98.6 F 71 18 121/68 H 96 08/08/18 10:04 08/08/18 11:06 08/08/18 10:04 08/08/18 10:04 08/08/18 10:04 Oxygen Delivery Method Room Air Weight: 214 lb Body Mass Index (BMI) 32.4 Intake and Output for Last 24 Hours 08/06/18 08/07/18 08/08/18 23:59 23:59 23:59 Intake Total 190.7 / 190.7 678 / 678 Balance 190.7 / 190.7 678 / 678 08/07/18 15:40: WBC 14.1 H, RBC 4.92, Hgb 14.8, Hct 44.7, MCV 90.9, MCH 30.1, MCHC 33.1, RDW 13.3, RDW Differential 43.5, Plt Count 117 L, MPV 9.6, Immature Gran % (Auto) 0.100, Neut % (Auto) 61.6, Lymph % (Auto) 14.4 L, [place] % (Auto) 23.7 H, Eos % (Auto) 0.1, Baso % (Auto) 0.1, Absolute Neuts (auto) 8.7 H, Total Counted Not Reportable 08/07/18 15:40: Sodium 138, Potassium 4.3, Chloride 106, Carbon Dioxide 27.0, Anion Gap 5, BUN 27 H, Creatinine 1.60 H, Est GFR (MDRD) Af Amer 54 L, Est GFR (MDRD) Non-Af 45 L, BUN/Creatinine Ratio 16.9, Glucose 112 H, Calcium 8.8, Total Bilirubin 1.30 H, Troponin I 22.100 H* 08/07/18 15:40: Lactic Acid Cancelled 08/07/18 16:37: Urine Color Yellow, Urine Clarity Cloudy, Urine pH 6.0, Ur Specific [place] 1.015, Urine Protein 30 H, Urine Glucose (UA) Normal, Urine Ketones Negative, Urine Occult Blood 150 H, Urine Nitrite Positive H, Urine Bilirubin Negative, Urine Urobilinogen Normal, Ur Leukocyte Esterase 500 H, Urine RBC 5-10 SEEN, Urine WBC >100 SEEN 08/07/18 17:22: Lactic Acid 1.2 08/07/18 18:41: APTT 46.4 H 08/07/18 18:41: Troponin I 21.000 H* 08/07/18 18:41: PT 16.3 H, INR 1.3 08/07/18 21:40: Troponin I 19.800 H* 08/08/18 02:55: WBC 12.6 H, RBC 4.55 L, Hgb 14.0, Hct 40.8, MCV 89.7, MCH 30.8, MCHC 34.3, RDW 13.2, RDW Differential 42.6, Plt Count 107 L, MPV 9.7, Immature Gran % (Auto) 0.400, Neut % (Auto) 64.0, Lymph % (Auto) 13.3 L, [place] % (Auto) 21.9 H, Eos % (Auto) 0.2, Baso % (Auto) 0.2, Absolute Neuts (auto) 8.1 H, Total Counted Not Reportable 08/08/18 02:55: PT 17.6 H, INR 1.4, APTT 101.2 H* 08/08/18 05:10: Sodium 142, Potassium 3.8, Chloride 110 H, Carbon Dioxide 22.0, Anion Gap 10, BUN 30 H, Creatinine 1.39 H, Est GFR (MDRD) Af Amer 64, Est GFR (MDRD) Non-Af 53 L, BUN/Creatinine Ratio 21.6 H, Glucose 104, Calcium 8.3 L Rhythm: EKG: As above ECHO: Pending Stress Test: Cardiac Cath: Pending PCI: CT Surgery: Holter monitor: EPS: PPM: CXR: Chest CT Scan: Assessment/Plan 1. Non-STEMI: Patient presents with no chest pain symptoms, shortness of breath or dyspnea, but has obvious respiratory oscillation sitting in bed, possibly consistent with Alonso-Doll breathing. His EKG suggest a recent inferior/posterior wall myocardial infarction, and is now progressed to incomplete right bundle branch block. His initial troponin was 22, and is trending downwards. In addition he has alexander hematuria after being treated with subcu Lovenox and IV heparin as well as Plavix. Patient is a poor candidate for coronary intervention at this time given his hematuria. At this point I would recommend discontinuation of his IV heparin, as well as holding his Plavix until he has been evaluated by urology. I spoke to a consulting urologist this morning, who is willing to come evaluate the patient later today. Hopefully we can elicit the source of the patient's hematuria in anticipation for possible left heart catheterization. In addition his echocardiogram is pending and we will hopefully get a beat on his LV function at that time. I am hesitant to take the patient to the [facility] as given his hematuria and if he needs angioplasty and stenting this would commit him to prolonged dual antiplatelet therapy which may complicate his hematuria. Once we get guidance from urology, we could then proceed with catheterization versus medical therapy. Unfortunate the patient is allergic to aspirin, and will require Plavix on a daily basis going forward for secondary prevention. 2. Hyperlipidemia: Recommend obtaining a fasting lipid profile. 3. Mental status changes: The patient has a previous history of urinary tract infections and does have some mental status changes today as well as possible Alonso-Doll breathing. We may want to consider a head CT scan to evaluate for possible stroke. 4. Discussed with the patient's family and all questions answered. Thank you very much for the opportunity to participate in the cardiac care of your patient. Consultation time took place between 9 AM and 9:30 AM. Code Visit Inpatient E&M: 96174 Init Hosp L2
[2018-08-08] MEDS: amLODIPine 10 MG Tablet PO (12:20)
[2018-08-08] MEDS: Tolterodine Tartrate 2 MG CAP.SA PO (12:21)
[2018-08-08] MEDS: Gabapentin 300 MG Capsule PO ×2 (12:21→22:59)
[2018-08-08] MEDS: Nebivolol HCl 10 MG Tablet PO (12:21)
--- NOTE | 2018-08-08 15:38 | CASEMGMT ---
FANY faxed PT/OT evaluations to Andrew at [facility]. Madelin GOFF [employer]
--- NOTE | 2018-08-08 17:56 | CON.PCM_ITS ---
Problem List (1) Gross hematuria Status: Acute (2) UTI (urinary tract infection) Status: Acute Reason for Consult Date of Consultation: 08/08/18 Reason for Consultation: Gross hematuria following anticoagulation History of Present Illness: The patient is a 78 year old M here with cardiac issues/acute [place]. During management of this, he was given anticoagulation and developed gross hematuria. At the current time the patient's son is present at bedside. He reports that the patient has seen a urologist in the past following a spinal surgical intervention. He did not follow-up with urology. Since this procedure he has been having issues with urinary incontinence and continuously wears depends at home. There has been no diagnosis of prostate cancer, the patient has not been treated for BPH according to the family, and there is no reports of prior urinary tract infections. Due to the gross hematuria a Schwarz catheter was inserted which revealed dark blood. Past Medical History Past Medical History (Chronic Problems): Chronic Problems HTN (hypertension) (Chronic) Allergies aspirin Allergy (Verified 08/07/18 15:10) Unknown Penicillins Allergy (Verified 08/07/18 15:10) Unknown Sulfa (Sulfonamide Antibiotics) Allergy (Verified 08/07/18 15:10) Unknown Home Medications: Ambulatory Orders Medication Instructions Recorded Amlodipine [Norvasc] 10 mg PO DAILY 08/07/18 Doxazosin Mesylate [Cardura] 2 mg PO QHS 08/07/18 Gabapentin [Neurontin] 300 mg PO BID 08/07/18 Losartan Potassium [Cozaar] 50 mg PO DAILY 08/07/18 Nebivolol HCl [Bystolic] 10 mg PO DAILY 08/07/18 Oxybutynin Chloride [Ditropan Xl] 10 mg PO DAILY 08/07/18 Surgical History: no surgical history Lives: Alone Smoking Status: Never smoker Tobacco Use: Non-smoker Alcohol: None Drugs: None - *Family History Maternal History Items: No pertinent history Paternal History Items: No pertinent history Review of Systems Constitutional: Denies: Chills, Fever Eyes: Denies: Vision Change HEENT: Denies: Visual Changes Gastrointestinal: Denies: Abdominal Pain Genitourinary: Reports: Hematuria, Incontinence Patient Problems: Active and Suspected Problems Sepsis (Acute) NSTEMI (non-ST elevated myocardial infarction) (Acute) UTI (urinary tract infection) (Acute) Gross hematuria (Acute) - Physical Exam General: Alert, Cooperative HEENT: Atraumatic, Normocephalic Oral: Moist Mucosa Neck: Trachea Midline Lungs: Normal air movement Abdomen: Non Tender, Non-Distended Skin: No rashes Neurological: Cranial nerves II-XII grossly intact Comment: schwarz catheter draining clear yellow urine at present time. Vital Signs Temp Pulse Resp BP Pulse Ox 98.7 F 67 18 116/70 94 08/08/18 12:14 08/08/18 15:11 08/08/18 12:14 08/08/18 12:14 08/08/18 12:14 Oxygen Delivery Method Room Air Weight: 97.07 kg Body Mass Index (BMI) 32.4 Intake and Output for Last 24 Hours 08/06/18 08/07/18 08/08/18 23:59 23:59 23:59 Intake Total 190.7 / 190.7 1876 / 1876 Output Total 200 / 200 Balance 190.7 / 190.7 1676 / 1676 Microbiology Past 72 Hours 08/07/18 15:45 Influenza Types A,B Direct FA (LATESHA) - Final Mucosa - Nose Laboratory Tests Past 24 Hrs 08/07/18 08/07/18 08/07/18 15:40 15:40 17:22 WBC RBC Hgb Hct MCV MCH MCHC RDW RDW Differential Plt Count MPV Immature Gran % (Auto) Neut % (Auto) Lymph % (Auto) [place] % (Auto) Eos % (Auto) Baso % (Auto) Absolute Neuts (auto) Absolute Lymphs (auto) Total Counted PT INR APTT Sodium Potassium Chloride Carbon Dioxide Anion Gap BUN Creatinine Estim Creat Clear Calc Est GFR (MDRD) Af Amer Est GFR (MDRD) Non-Af BUN/Creatinine Ratio Glucose Lactic Acid Cancelled 1.2 Calcium Total Creatine Kinase 2390 H Troponin I 08/07/18 08/07/18 08/07/18 18:41 18:41 18:41 WBC RBC Hgb Hct MCV MCH MCHC RDW RDW Differential Plt Count MPV Immature Gran % (Auto) Neut % (Auto) Lymph % (Auto) [place] % (Auto) Eos % (Auto) Baso % (Auto) Absolute Neuts (auto) Absolute Lymphs (auto) Total Counted PT 16.3 H INR 1.3 APTT 46.4 H Sodium Potassium Chloride Carbon Dioxide Anion Gap BUN Creatinine Estim Creat Clear Calc Est GFR (MDRD) Af Amer Est GFR (MDRD) Non-Af BUN/Creatinine Ratio Glucose Lactic Acid Calcium Total Creatine Kinase Troponin I 21.000 H* 08/07/18 08/08/18 08/08/18 21:40 02:55 02:55 WBC 12.6 H RBC 4.55 L Hgb 14.0 Hct 40.8 MCV 89.7 MCH 30.8 MCHC 34.3 RDW 13.2 RDW Differential 42.6 Plt Count 107 L MPV 9.7 Immature Gran % (Auto) 0.400 Neut % (Auto) 64.0 Lymph % (Auto) 13.3 L [place] % (Auto) 21.9 H Eos % (Auto) 0.2 Baso % (Auto) 0.2 Absolute Neuts (auto) 8.1 H Absolute Lymphs (auto) 1.68 Total Counted Not Reportable PT 17.6 H INR 1.4 APTT 101.2 H* Sodium Potassium Chloride Carbon Dioxide Anion Gap BUN Creatinine Estim Creat Clear Calc Est GFR (MDRD) Af Amer Est GFR (MDRD) Non-Af BUN/Creatinine Ratio Glucose Lactic Acid Calcium Total Creatine Kinase Troponin I 19.800 H* 08/08/18 05:10 WBC RBC Hgb Hct MCV MCH MCHC RDW RDW Differential Plt Count MPV Immature Gran % (Auto) Neut % (Auto) Lymph % (Auto) [place] % (Auto) Eos % (Auto) Baso % (Auto) Absolute Neuts (auto) Absolute Lymphs (auto) Total Counted PT INR APTT Sodium 142 Potassium 3.8 Chloride 110 H Carbon Dioxide 22.0 Anion Gap 10 BUN 30 H Creatinine 1.39 H Estim Creat Clear Calc 43.74 Est GFR (MDRD) Af Amer 64 Est GFR (MDRD) Non-Af 53 L BUN/Creatinine Ratio 21.6 H Glucose 104 Lactic Acid Calcium 8.3 L Total Creatine Kinase Troponin I Assessment/Plan All Active Problems Sepsis (Acute) NSTEMI (non-ST elevated myocardial infarction) (Acute) UTI (urinary tract infection) (Acute) Gross hematuria (Acute) Gross hematuria, urinary tract infection in 78yo male with underlying urologic concerns including urinary incontinence. At the present time, I would recommend proceeding with any intervention needed from a cardiac standpoint without concern regarding his gross hematuria. I will leave the current Schwarz catheter in place, and will be available to change the size of the catheter if needed. In an outpatient setting, he will need a renal imaging, urine cytology and cys toscopic evaluation. He will also need further evaluation with urodynamics to fully evaluate his urinary incontinence. At this time I would recommend a urine culture and treatment for his infection. I thank you for the privilege of this consult and will follow with you while he is in the hospital. As an outpatient, he will need to follow-up with Dr. Melgar or another urologist, as I do not see male patients in the office.
[2018-08-08] MEDS: Clopidogrel Bisulfate 75 MG Tablet PO (18:19)
[2018-08-08] MEDS: Doxazosin 1 MG Tablet 2 MG PO (22:59)
[2018-08-09] VITALS (22 sets, daily range): BP systolic 135–165; BP diastolic 59–102; PULSE 61–86; RESP 11–28; TEMP 36.7–37.1; O2SAT 94–97; BMI 29.4
[2018-08-09] MEDS: 0.9% Normal Saline 1,000 ML 150 ML IV ×3 (01:29→21:05)
[2018-08-09] MEDS: Nebivolol HCl 10 MG Tablet PO (05:30)
[2018-08-09] MEDS: Clopidogrel Bisulfate 75 MG Tablet PO (05:31)
[2018-08-09] MEDS: amLODIPine 10 MG Tablet PO (05:31)
--- NOTE | 2018-08-09 05:55 | EKG12_ITS ---
Test Reason : MORNING EKG Blood Pressure : / mmHG Vent. Rate : 064 BPM Atrial Rate : 064 BPM P-R Int : 182 ms QRS Dur : 114 ms QT Int : 452 ms P-R-T Axes : 042 -56 -41 degrees QTc Int : 466 ms Normal sinus rhythm Left anterior fascicular block Inferior infarct , age undetermined ST & T wave abnormality, consider lateral ischemia Abnormal ECG Confirmed by BIBI ORTIZ, JILL ([id number]), food editor FUAD MEZA ([id number] on 08/15/2018 11:51:32 AM Referred By: Tiago Orr Confirmed By:JILL MTZ MD
[2018-08-09 05:57] LABS: International Normalized Ratio 1.3; Prothrombin Time (Protime)PT. 16.2 SECONDS (11.7-14.9)
[2018-08-09 05:58] LABS: Partial Thromboplast Time 44.7 Seconds (24.1-36.2)
[2018-08-09 05:59] LABS: Absolute Lymphocyte Count 1.72 X10^3/ul (0.83-4.51); Absolute Neutrophil Count 6.2 X10^3/uL (2.0-7.7); Basophil# 0.03 X10^3/uL; Basophil% 0.3 % (0-1); Differential Indicated SCAN CRITERIA MET; Eosinophil# 0.04 X10^3/uL; Eosinophils% 0.4 % (0-5); Hematocrit 39.3 % (40-54); Hemoglobin 13.2 g/dl (13.0-16.5); Lymphocyte # 1.72 X10^3/ul (4.0); Lymphocyte % 17.2 % (19-41); Mean Corp Hgb Conc 33.6 g/gl (32-36); Mean Corpuscular Hgb 30.5 pg (27.0-32.0); Mean Corpuscular Volume 90.8 fL (80-94); Mean Platelet Vol. 10.1 fl (6.2-12.0); Monocyte# 1.91 X10^3/uL; Monocyte% 19.1 % (0-10); Neutrophil # 6.24 X10^3/uL (2.7-7.7); Neutrophil % 62.4 % (47-70); POSITIVE COUNT NO; POSITIVE DIFFERENTIAL YES; POSITIVE MORPHOLOGY NO; Platelet Count 107 K/mm3 (150-450); RBC Distribution Width CV 13.1 % (11.6-14.6); RBC Distribution Width SD 43.2 fl (35.1-43.9); Red Blood Count 4.33 M/mm3 (4.6-6.2)
[2018-08-09 06:06] LABS: Anion Gap 8 (5-15); BUN 27 mg/dL (7-18); BUN/Creat Ratio 24.5 RATIO (10-20); Calcium,Total 8.1 mg/dL (8.5-10.1); Chloride 113 mmol/L (98-107); EST Glomerular Filtration Rate 69 mL/min (>60); Est Glom Filt Rate - Afr Amer 84 mL/min (>60); Estimated Creatinine Clearance 55.27 ml/min; Glucose 95 mg/dL (74-106); Potassium 3.6 mmol/L (3.5-5.1); Sodium Level 142 mmol/L (136-145)
--- NOTE | 2018-08-09 08:24 | NURSING ---
Called report to NIMISHA Valladares in landscape and yardwork laborer at this time.
--- NOTE | 2018-08-09 10:15 | EKG12_ITS ---
Test Reason : POST HEART CATH Blood Pressure : / mmHG Vent. Rate : 066 BPM Atrial Rate : 066 BPM P-R Int : 178 ms QRS Dur : 116 ms QT Int : 470 ms P-R-T Axes : 043 -53 -29 degrees QTc Int : 492 ms Normal sinus rhythm Left anterior fascicular block Inferior infarct , age undetermined Abnormal ECG Confirmed by BIBI ORTIZ, JILL ([id number]), make up editor FUAD MEZA ([id number] on 08/15/2018 1:08:58 PM Referred By: Tiago Orr Confirmed By:JILL MTZ MD
--- NOTE | 2018-08-09 10:22 | CL.I_ITS ---
Patient Name: KRISTINA CORDOVA Study Date: 08/09/2018 Performing: Jameel Dixon MD Ht: 68.11 inches 173 cm : 1940 Wt: 213.85 lbs 97 kg Age: 78 Gender: male BSA: 2.11 PROCEDURE(S) PERFORMED [id number]/COR/LV [id number] W OR WO PTCA, SINGLE CORONARY ARTERY CLINICAL PROFILE AND CO-MORBIDITIES Patient presents with NSTEMI for urgent cardiac cath Indications: ACS > 24 hrs, Suspected CAD, LV Dysfunction Heart Failure: NYHA Class: 2, Newly Diagnosed: Yes, Heart Failure Type: Systolic Stress/Imaging Stress/Image Study Performed: No Angina Classification Anginal Classification w/in 2 Weeks: No symptoms CAD Presentations: Non-STEMI. Symptom onset Date/Time: 01/31/2018 Time Not Available Comorbidities/Risk Factors: Hypertension Dyslipidemia CONCLUSIONS Triple vessel CAD of the LCX, LAD and RCA Segmented LV systolic dysfunction- Moderate to severe LVEF: by LV gram 45 % Successful PTCA/CHERYL of proximal RCA with a 3.0 x 32 Promus Synergy, post dilated with a 3.0 x 12 NC B alloon; 90%-->0%, no dissection. Successful PTCA/CHERYL distal RCA with a 2.5 x 24 Promus Synergy, post dilated in distal portion of sten t with a 3.0 x 12 NC Balloon; 75%-->0%, no dissection. Successful PTCA/CHERYL mid PDA with a 2.25 x 12 Promus Synergy; 75%-->0%, no dissection. Successful Mynx closure. RECOMMENDATIONS Referred for immediate PCI Pt is not a good CABG surgical candidate due to chronic debiliated condition and poor lower extermity neurologic function making rehab very problematic. Highly recommend quitting all tobacco products Follow up with primary machine i cutter Risk factor modification ASA Indefinitley Plavix for at least 12 months Routine post interventional care Refer for Outpatient Cardiac Rehab Manual sheath removal per protocol Stress test in 4 weeks to eval anterior wall for possible PCI to LAD. Would not pursue PCI of JIG AND FIXTURE REPAIRER LC X. Follow up with Dr. Dixon Pt will require DAPT for at least 6 months, preferably 1 year. Due to exent of disease and small ves micheal size, CHERYL was used for best results. DESCRIPTION OF PROCEDURE The patient arrived to the procedure lab. The risks and benefits of the procedure as well as a full d escription of our services here and lack of surgical backup were fully explained to the patient and/o r their significant other prior to the catheterization. The Timeout was completed, verifying the pia ect patient and procedure. The patient's procedural site was prepped and draped in the usual fashion. Local anesthetic was given subcutaneously to right groin region with Lidocaine 2%. Using a modified Seldinger technique, arterial access was obtained via the right femoral artery, a 4Fr sheath was inse rted. Left Coronary Artery selective angiography was performed in multiple views using a 4 Fr. JL5 c atheter. Right Coronary Artery selective angiography was then performed in multiple views using a 4 F r. 3DRC catheter. Left Ventriculography was performed in WALKER projection using a 4 Fr. Pigtail cathete r. LV to AO pullback pressures were then recordedThe images were reviewed and options discussed. A de cision was then made to proceed with an Intervention, IVUS or other adjunct procedure. Arterial sheath was exchanged for a 6 Fr Sheath. HS II Guide catheter was inserted and engaged into t he RCA. BMW Guide wire was advanced to the RCA. Chester AP inserted Pass # 1 Chester AP Removed 2.0x12 Emerge Balloon catheter was advanced across lesion in the right coronary, mid. PTCA balloon inflated at 6 atms for 8 secs. PTCA balloon inflated at 10 atms for 18 secs. 3.0x32 synergy Drug Eluting stent was advanced across the lesion in the right coronary, mid. 3.0x12 NC Emerge Balloon catheter was adv anced across lesion in the right coronary, mid. Angiogram performed post stent deployment. Balloon ca theter was advanced across lesion in the right coronary, distal. PTCA balloon inflated at 10 atms for 6 secs. PTCA balloon inflated at 12 atms for 4 secs. PTCA balloon inflated at 12 atms for 4 secs. Ba lloon catheter was advanced across lesion in the posterior descending, mid. PTCA balloon inflated at 10 atms for 12 secs. PTCA balloon inflated at 10 atms for 23 secs. Angiogram performed post balloon d ilatation. 2.25x12 synergy Drug Eluting stent was advanced across the lesion in the posterior descend ing, mid. 2.5x28 synergy Drug Eluting stent was advanced across the lesion in the right coronary, dis teetee. 3.0x12 NC emerge Balloon catheter was reinserted Angiogram performed post balloon dilatation. Ar terial sheath was exchanged for a 6 Fr Sheath. The arterial sheath was pulled and a Mynx closure de vice was deployed for hemostasis CORONARY ANGIOGRAPHY DOMINANCE: Right Dominant LEFT HEART ASSESSMENT Left Ventricular Ejection Fraction: by LV Gram 45 % Depressed Left Ventricular systolic function Inferior Basal Hypokinesis - Severe LEFT MAIN: No significant disease noted LEFT ANTERIOR DECENDING ARTERY: PROX LAD: 65 % Stenosis MID LAD: Moderate luminal irregularities up to 50% CIRCUMFLEX ARTERY: MID CIRC: is occluded RIGHT CORONARY ARTERY: MID RCA: 90 % Stenosis DISTAL RCA: 75 % Stenosis RT PDA: Mid - 85 % Stenosis COLLATERAL FLOW: Collateral flow from Left to Left INTERVENTION INFORMATION LESION SITE: RCA (Mid) Lesion Complexity: High/C, lesion at bifurcation: No, thrombus present: Yes, lesion length: 32 mm, cu lprit lesion: Yes Pre Stenosis: 90 % Pre intervention NIKOS flow: 2 PROCEDURE: Drug Eluting Stent with pre and post dilatation Post Stenosis: 0 % Post intervention NIKOS flow: 3 Lesion Devices: Medtronic 6 Fr HSII 100cm Guide Catheter [place] .014 BMW Salkum Straight 190cm Medtronic 6 Fr. Chester AP Aspiration Catheter Ishmael Sci EMERGE MR 2.00x12 BALLOON Ishmael Sci Synergy MR CHERYL 3.00x32 Ishmael Sci NC EMERGE MR 3.00x12 BALLOON LESION SITE: RCA (Distal) Lesion Complexity: High/C, lesion at bifurcation: No, thrombus present: No, lesion length: 24 mm, cul prit lesion: No Pre Stenosis: 75 % Pre intervention NIKOS flow: 2 PROCEDURE: Drug Eluting Stent with pre and post dilatation Post Stenosis: 0 % Post intervention NIKOS flow: 3 Lesion Devices: Medtronic 6 Fr HSII 100cm Guide Catheter [place] .014 BMW Salkum Straight 190cm Ishmael Sci EMERGE MR 2.00x12 BALLOON Ishmael Sci NC EMERGE MR 3.00x12 BALLOON Ishmael Sci Synergy MR CHERYL 2.50x28 LESION SITE: RT PDA (Mid) Lesion Complexity: Non-High/Non-C, lesion at bifurcation: No, thrombus present: No, lesion length: 12 mm, culprit lesion: No Pre Stenosis: 75 % Pre intervention NIKOS flow: 2 PROCEDURE: Drug Eluting Stent with pre dilatation. 0 % Post intervention NIKOS flow: 3 Lesion Devices: Medtronic 6 Fr HSII 100cm Guide Catheter [place] .014 BMW Salkum Straight 190cm Ishmael Sci Synergy MR CHERYL 2.25x12 COMPLICATIONS No Complications PROCEDURE MEDICATIONS Oxygen: 2 L/min via nasal cannula Heparin 6000 unit(s) IV 08/09/2018 09:21:22 Nitro 200 mcg IC 08/09/2018 09:22:36 Nitro 200 mcg IC 08/09/2018 09:22:36 IV Bolus: .9 NaCl 250 ml total 08/09/2018 10:13:15 SUMMARY OF HEMODYNAMIC DATA Time AIR REST ECG 08:54:43 AO 131/61 (88) SA 09:09:11 LV 142/-3, 32 09:15:34 LV 141/-3, 38 09:15:42 LVp 139/-4, 35 09:15:46 AOp 135/57 (87) 09:15:51 Signed By Jameel Dixon MD On 08/09/2018 10:49:30 Signed By Jameel Dixon MD On 08/09/2018 10:21:44 Jameel Dixon MD
--- NOTE | 2018-08-09 10:27 | NURSING ---
Called report to NIMISHA Moulton in ICU at this time.
[2018-08-09] MEDS: Ceftriaxone 1 GM/50 ML BAG IV (11:21)
--- NOTE | 2018-08-09 11:24 | CRPHASE1 ---
Patient Data/Charges Nail Tech:: Jameel Dixon Date/Diagnosis #1:: 08/09/18 INt/PCI Risk Factors/Lifestyle Hx Hypertension: Yes Height: 1.82 m Weight:: 97.069 kg BMI: 29.4 Phase I Education Given On:: [place], Nutrition, Antiplatelet medication, CHF, Smoking cessation, Diabetes - Type I, Diabetes - Type II Medical/Surgical History Hypertension:: Yes Discharge/Home/Social Eval Discharge Disposition: assisted living
--- NOTE | 2018-08-09 11:29 | CRPH1.INSTRU ---
General Education CAD and cardiac anatomy and function:: Not instructed Explanation of diagnoses and procedures:: Not instructed Sign/Symptoms of [place]:: Not instructed Antiplatelet therapy: Not instructed Proper use of NTG-SL: Not instructed Emergency procedures and activation of EMS: Not instructed Compliance of all prescribed medications: Not instructed Smoking Patient Nicotine/Smoking Risk Factors Are:: Non-smoker Dyslipidemia Dyslipidemia Response Code:: Not instructed Overweight/Obesity Patient Overweight/Obesity Risk Factors Are:: Overweight = 26-29 Overweight/Obesity:: Not instructed Hypertension Hypertension:: Not instructed Heart Disease Heart Disease Response Code:: Not instructed Diabetes Diabetes:: Not instructed Metabolic Syndrome Metabolic Syndrome Response Code:: Not instructed Sedentary Sedentary Response Code:: Not instructed Stress Stress Response Code:: Not instructed
--- NOTE | 2018-08-09 11:42 | CRPH1.INST_ITS ---
General Education CAD and cardiac anatomy and function:: Not instructed Explanation of diagnoses and procedures:: Not instructed Sign/Symptoms of [place]:: Not instructed Antiplatelet therapy: Not instructed Proper use of NTG-SL: Not instructed Emergency procedures and activation of EMS: Not instructed Compliance of all prescribed medications: Not instructed Smoking Patient Nicotine/Smoking Risk Factors Are:: Non-smoker Dyslipidemia Dyslipidemia Response Code:: Not instructed Overweight/Obesity Patient Overweight/Obesity Risk Factors Are:: Overweight = 26-29 Overweight/Obesity:: Not instructed Hypertension Hypertension:: Not instructed Heart Disease Heart Disease Response Code:: Not instructed Diabetes Diabetes:: Not instructed Metabolic Syndrome Metabolic Syndrome Response Code:: Not instructed Sedentary Sedentary Response Code:: Not instructed Stress Stress Response Code:: Not instructed
--- NOTE | 2018-08-09 11:43 | CASEMGMT ---
Social Work Met with pt in room and introduced self and role of SW. PT awake and talks to SW but states he is in [place] and unable to identify where he lives. When SW asked if pt lived at [facility], pt did agree. SW met with pt son Raulito and daughter Darya in conference room. Pt baseline is A&O however he does get confused when he has UTI's. Pt is currently living at [facility]. Family is understanding that he cannot return there at this time. They would like pt to go to [facility] for rehab with plans to eventually return to [place]. Phone call to Mellisa at [facility] and they do have a room available for pt. Family informed of this and that precert will need to be obtained by insurance. SW inquired about advance directives. They confirm that pt does have a living will and a power of attorney at law. They are uncertain if pt has a financial and health care POA or only financial. Pt son Matt is the POA. Matt called while FANY was speaking with Raulito and Darya. Matt is agreeable to placement at [facility] and he will bring in advance directives when he visits pt tonight or over the weekend. Matt instructed to give documents to nurse who will make copies for the chart. Referral faxed to Mellisa at [facility]. FANY will continue to follow for SNF placement. Plan: [facility], pending insurance precert LORNA Montanez
[2018-08-09 12:40] LABS: ACT Activated Clotting Time 224 sec (74-137)
--- NOTE | 2018-08-09 12:48 | PN_ITS ---
<Jennifer Lewis - Last Filed: 08/09/18 12:49> Patient Problems: Active and Suspected Problems Sepsis (Acute) NSTEMI (non-ST elevated myocardial infarction) (Acute) UTI (urinary tract infection) (Acute) Gross hematuria (Acute) Subjective: Patient seen and examined. Undergoing prep for cardiac catheterization this m orning. Fairly somnolent. Slow to answer questions. Denies current complaints. Denies shortness of breath while lying flat. - Physical Exam General: Alert, Cooperative, No apparent distress HEENT: Atraumatic, PERRLA, EOMI, Normocephalic Neck: Supple, No JVD, Negative Carotid Bruits Lungs: Clear to auscultation, Normal air movement Cardiovascular: Regular rate, Regular Rhythm, Normal S1, Normal S2, No murmurs Abdomen: Bowel Sounds Present, Soft, Non Tender, Non-Distended Extremities: No clubbing, No cyanosis, No edema, Capillary Refill Less than 3 Seconds Skin: No rashes, No breakdown Musculoskeletal: No Tenderness to Palpation of Joints or Extremities Neurological: Cranial nerves II-XII grossly intact, Neuro grossly intact Psych/Mental Status: Normal Affect, Appropriate Vital Signs Temp Pulse Resp BP Pulse Ox 98.1 F 64 12 141/90 H 95 08/09/18 12:00 08/09/18 12:00 08/09/18 12:00 08/09/18 12:00 08/09/18 12:00 Oxygen Flow Rate (L/min) 2 Oxygen Delivery Method Nasal Cannula Weight: 214 lb Body Mass Index (BMI) 32.4 Intake and Output for Last 24 Hours 08/07/18 08/08/18 08/09/18 23:59 23:59 23:59 Intake Total 190.7 / 190.7 3697 / 3697 586 / 586 Output Total 650 / 650 650 / 650 Balance 190.7 / 190.7 3047 / 3047 -64 / -64 Microbiology Past 72 Hours 08/07/18 16:37 Urine Culture - Preliminary Urine, Clean Catch Staphylococcus species 08/07/18 15:45 Influenza Types A,B Direct FA (LATESHA) - Final Mucosa - Nose Laboratory Tests Past 24 Hrs 08/09/18 08/09/18 08/09/18 05:30 05:30 05:30 WBC 10.0 RBC 4.33 L Hgb 13.2 Hct 39.3 L MCV 90.8 MCH 30.5 MCHC 33.6 RDW 13.1 RDW Differential 43.2 Plt Count 107 L MPV 10.1 Immature Gran % (Auto) 0.600 Neut % (Auto) 62.4 Lymph % (Auto) 17.2 L [place] % (Auto) 19.1 H Eos % (Auto) 0.4 Baso % (Auto) 0.3 Absolute Neuts (auto) 6.2 Absolute Lymphs (auto) 1.72 Total Counted Not Reportable PT 16.2 H INR 1.3 APTT 44.7 H Sodium 142 Potassium 3.6 Chloride 113 H Carbon Dioxide 21.0 Anion Gap 8 BUN 27 H Creatinine 1.10 Estim Creat Clear Calc 55.27 Est GFR (MDRD) Af Amer 84 Est GFR (MDRD) Non-Af 69 BUN/Creatinine Ratio 24.5 H Glucose 95 Calcium 8.1 L Medical Necessity - Tobacco Use Smoking Status: Never smoker Tobacco Use: Non-smoker Assessment/Plan All Active Problems Sepsis (Acute) NSTEMI (non-ST elevated myocardial infarction) (Acute) UTI (urinary tract infection) (Acute) Gross hematuria (Acute) 1. Acute sepsis secondary to acute Staphylococcus cystitis with associated hematuria-UA positive on admission. Urine culture showing Staphylococcus species. Blood cultures pending. Continue IV Rocephin. Mental status slowly improving. Truong in place. Urology consulted for hematuria. Patient will follow up with urology as outpatient with plan for renal imaging, urine cytology and cystoscopic evaluation. Urine appears clear this morning. Okay for anticoagulation per urology. 2. Acute kidney injury on chronic kidney disease stage III-Resolved. Continue IV fluids. Trend BMP. 3. Acute metabolic encephalopathy secondary to #1/#2. Improving. 4. CAD/NSTEMI status post PTCA/CHERYL- Dr. Dixon consulted. Patient underwent cardiac catheterization 08/09/2018 which demonstrated triple vessel CAD of the LCx, LAD and RCA. Patient underwent successful PTCA/CHERYL of proximal RCA, distal RCA, mid PDA. Patient will continue aspirin indefinitely, Plavix for at least 12 months. Stress test in 4 weeks to evaluate anterior wall for possible PCI to LAD. Per cardiology, would not pursue PCI of LCx. Patient will follow up with Dr. Dixon at discharge. Echocardiogram showed an EF of 40-45%, stage I diastolic dysfunction. 5. BPH-continue home doxazosin, oxybutynin. 6. Hypertension-continue home amlodipine, losartan regimen. DVT prophylaxis- SCDs, heparin subcu. Discharge planning: SNF at discharge pending pre-CERT. Plans for eventual return to assisted living. SW following. PT/OT. This patient was seen by AZRA Gallo under the supervision of Dr. Hand. <Noel Hand - Last Filed: 08/09/18 13:39> - Physical Exam Vital Signs Temp Pulse Resp BP Pulse Ox 98.1 F 64 12 143/77 H 95 08/09/18 12:00 08/09/18 13:00 08/09/18 13:00 08/09/18 13:00 08/09/18 13:00 Oxygen Flow Rate (L/min) 2 Oxygen Delivery Method Nasal Cannula Weight: 97.069 kg Body Mass Index (BMI) 32.4 Intake and Output for Last 24 Hours 08/07/18 08/08/18 08/09/18 23:59 23:59 23:59 Intake Total 190.7 / 190.7 3697 / 3697 586 / 586 Output Total 650 / 650 650 / 650 Balance 190.7 / 190.7 3047 / 3047 -64 / -64 Microbiology Past 72 Hours 08/07/18 16:37 Urine Culture - Preliminary Urine, Clean Catch Staphylococcus species 08/07/18 15:45 Influenza Types A,B Direct FA (LATESHA) - Final Mucosa - Nose Laboratory Tests Past 24 Hrs 08/09/18 08/09/18 08/09/18 05:30 05:30 05:30 WBC 10.0 RBC 4.33 L Hgb 13.2 Hct 39.3 L MCV 90.8 MCH 30.5 MCHC 33.6 RDW 13.1 RDW Differential 43.2 Plt Count 107 L MPV 10.1 Immature Gran % (Auto) 0.600 Neut % (Auto) 62.4 Lymph % (Auto) 17.2 L [place] % (Auto) 19.1 H Eos % (Auto) 0.4 Baso % (Auto) 0.3 Absolute Neuts (auto) 6.2 Absolute Lymphs (auto) 1.72 Total Counted Not Reportable PT 16.2 H INR 1.3 APTT 44.7 H Activated Clotting Time Sodium 142 Potassium 3.6 Chloride 113 H Carbon Dioxide 21.0 Anion Gap 8 BUN 27 H Creatinine 1.10 Estim Creat Clear Calc 55.27 Est GFR (MDRD) Af Amer 84 Est GFR (MDRD) Non-Af 69 BUN/Creatinine Ratio 24.5 H Glucose 95 Calcium 8.1 L 08/09/18 10:01 WBC RBC Hgb Hct MCV MCH MCHC RDW RDW Differential Plt Count MPV Immature Gran % (Auto) Neut % (Auto) Lymph % (Auto) [place] % (Auto) Eos % (Auto) Baso % (Auto) Absolute Neuts (auto) Absolute Lymphs (auto) Total Counted PT INR APTT Activated Clotting Time 224 H Sodium Potassium Chloride Carbon Dioxide Anion Gap BUN Creatinine Estim Creat Clear Calc Est GFR (MDRD) Af Amer Est GFR (MDRD) Non-Af BUN/Creatinine Ratio Glucose Calcium Assessment/Plan This patient was seen in conjunction with AZRA Gallo . I have independently interviewed and examined the patient and reviewed pertinent historical, laboratory, and other data. Please refer to AZRA Gallo note for details of this patient's presentation, findings, and recommendations. I have reviewed AZRA Gallo note and concur with documented findings. In brief, patient is a 78-year-old lady who presented with abdominal pain associated with altered mental status. He was also found to have elevated troponin on admission 08/09/2018. Patient underwent left heart catheterization. Patient was found to have triple vessel disease involving the LAD circumflex as well as RCA. He had a PTCA/CHERYL of the proximal RCA, distal RCA and mid PDA lesions. Subsequently transferred to intensive care unit. Physical Examination: GENERAL: Affect HEENT: Atraumatic; EYES; Anicteric, NECK; supple, normal thyroid, RESPIRATORY: Diminished to auscultation bilaterally, CARDIOVASCULAR: Regular S1 S2, no audible murmurs : No Renal angle tenderness; Truong catheter in place EXTREMITIES: No edema, no clubbing, NEURO: Awake; no lateralizing signs. SKIN: No Rash PSYCH; Normal affect Assessment: 1. Sepsis secondary to acute cystitis 2. Hematuria secondary to cystitis as well as systemic use of anticoagulation 3. Acute kidney injury 4. Chronic kidney disease stage III 5. Acute metabolic encephalopathy secondary to acute kidney injury 6. Acute non-STEMI cardiology consulted 7. BPH 8. Hypertension Recommendations: 1. I have discussed the results of my overview and impressions with the patient 2. Options for management were reviewed Code Visit Inpatient E&M: 09407 Subs Hosp L3
[2018-08-09] MEDS: Gabapentin 300 MG Capsule PO ×2 (15:03→21:06)
[2018-08-09] MEDS: Tolterodine Tartrate 2 MG CAP.SA PO (15:04)
--- NOTE | 2018-08-09 16:33 | PCM.PN.BLA ---
Progress Note Patient will be contacted by [facility] office regarding date and time for dobutamine stress echocardiogram.
--- NOTE | 2018-08-09 16:38 | PN_ITS ---
Progress Note Patient will be contacted by [facility] office regarding date and time for dobutamine stress echocardiogram.
[2018-08-09] MEDS: 0.9% NaCl Peripheral Flush Adult/Peds IV (21:04)
[2018-08-09] MEDS: Doxazosin 1 MG Tablet 2 MG PO (21:07)
[2018-08-09] MEDS: Heparin Injection (Vial) 5,000 UNIT/ML VIAL 5000 UNIT SC (21:07)
[2018-08-10] VITALS (26 sets, daily range): BP systolic 127–175; BP diastolic 52–74; PULSE 63–75; RESP 12–25; TEMP 36–37.6; O2SAT 92–97
[2018-08-10] MEDS: hydrALAZINE 20 MG/ML Vial 10 MG IV (02:45)
[2018-08-10] MEDS: 0.9% NaCl Peripheral Flush Adult/Peds IV ×3 (02:45→06:12)
[2018-08-10 04:57] LABS: Hematocrit 37.9 % (40-54); Hemoglobin 12.8 g/dl (13.0-16.5); Mean Corp Hgb Conc 33.8 g/gl (32-36); Mean Corpuscular Hgb 30.8 pg (27.0-32.0); Mean Corpuscular Volume 91.1 fL (80-94); Mean Platelet Vol. 10.2 fl (6.2-12.0); Platelet Count 114 K/mm3 (150-450); RBC Distribution Width CV 13.1 % (11.6-14.6); RBC Distribution Width SD 43.1 fl (35.1-43.9); Red Blood Count 4.16 M/mm3 (4.6-6.2); White Blood Count 9.5 K/mm3 (4.4-11.0)
[2018-08-10 05:07] LABS: Scan Indicated on CBC? Y/N YES- FLAGS NOTED
[2018-08-10 05:11] LABS: Anion Gap 11 (5-15); BUN 23 mg/dL (7-18); BUN/Creat Ratio 22.5 RATIO (10-20); Chloride 113 mmol/L (98-107); Cholesterol 125 mg/dL (200); Creatinine, Serum 1.02 mg/dL (0.70-1.30); EST Glomerular Filtration Rate 75 mL/min (>60); Est Glom Filt Rate - Afr Amer 91 mL/min (>60); Estimated Creatinine Clearance 65.62 ml/min; Glucose 113 mg/dL (74-106); High Density Lipoprotein 25 mg/dL; Potassium 3.5 mmol/L (3.5-5.1); Sodium Level 143 mmol/L (136-145); Triglycerides 99 mg/dL; Very Low Density Lipoprotein 20 mg/dL (5-40)
[2018-08-10 05:14] LABS: Differential Comment SCANNED
--- NOTE | 2018-08-10 07:50 | PCM.PN.HOSP ---
Patient Problems: Active and Suspected Problems Sepsis (Acute) NSTEMI (non-ST elevated myocardial infarction) (Acute) UTI (urinary tract infection) (Acute) Gross hematuria (Acute) Subjective: 08/09/2018. Patient underwent left heart catheterization. Patient was found to have triple vessel disease involving the LAD circumflex as well as RCA. He had a PTCA/CHERYL of the proximal RCA, distal RCA and mid PDA lesions. Subsequently transferred to intensive care unit. Patient's urine cultures came back positive for staph species. Patient is on Rocephin awaiting final sensitivities. Objective: GENERAL: Affect HEENT: Atraumatic; EYES; Anicteric, no jaundice NECK; supple, normal thyroid, RESPIRATORY: Diminished to auscultation bilaterally, GI; abdomen nondistended nontender CARDIOVASCULAR: Regular S1 S2, no audible murmurs : No Renal angle tenderness; Truong catheter in place EXTREMITIES: No edema, no clubbing, NEURO: Awake; no lateralizing signs. SKIN: No Rash PSYCH; Normal affect Vitals/I&O's: Vital Signs Temp Pulse Resp BP Pulse Ox 98.9 F 68 16 149/52 H 96 08/10/18 07:49 08/10/18 07:27 08/10/18 07:00 08/10/18 07:00 08/10/18 07:00 Oxygen Flow Rate (L/min) 2 Oxygen Delivery Method Nasal Cannula Weight: 102 kg Body Mass Index (BMI) 32.4 Intake and Output for Last 24 Hours 08/08/18 08/09/18 08/10/18 23:59 23:59 23:59 Intake Total 3697 / 3697 2346 / 2346 380 / 380 Output Total 650 / 650 1350 / 1350 300 / 300 Balance 3047 / 3047 996 / 996 80 / 80 Microbiology Past 72 Hours 08/07/18 16:05 Blood Culture (Wb) - Anticubital Right Blood Culture - Preliminary No growth in 48 hours. 08/07/18 15:40 Blood Culture (Wb) - Anticubital Left Blood Culture - Preliminary No growth in 48 hours. 08/07/18 16:37 Urine, Clean Catch Urine Culture - Preliminary Staphylococcus species 08/07/18 15:45 Mucosa - Nose Influenza Types A,B Direct FA (LATESHA) - Final Laboratory Results 08/09/18 10:01: Activated Clotting Time 224 H 08/10/18 04:45: WBC 9.5, RBC 4.16 L, Hgb 12.8 L, Hct 37.9 L, MCV 91.1, MCH 30.8, MCHC 33.8, RDW 13.1, RDW Differential 43.1, Plt Count 114 L, MPV 10.2, Differential Comment SCANNED 08/10/18 04:45: Sodium 143, Potassium 3.5, Chloride 113 H, Carbon Dioxide 19.0 L, Anion Gap 11, BUN 23 H, Creatinine 1.02, Estim Creat Clear Calc 65.62, Est GFR (MDRD) Af Amer 91, Est GFR (MDRD) Non-Af 75, BUN/Creatinine Ratio 22.5 H, Glucose 113 H, Calcium 8.0 L, Triglycerides 99, Cholesterol 125, LDL Cholesterol 80, VLDL Cholesterol 20, HDL Cholesterol 25 L Current Medications Amlodipine Besylate (Norvasc) 10 mg PO DAILY [facility] Last Admin: 08/09/18 05:31 Dose: 10 mg Aspirin (Ecotrin) 81 mg PO DAILY@0800 [facility] Atropine Sulfate () 0.5 mg IV UD PRN PRN Reason: HR <50 bpm Clopidogrel Bisulfate (Plavix) 75 mg PO DAILY [facility] Last Admin: 08/09/18 05:31 Dose: 75 mg Doxazosin Mesylate (Cardura) 2 mg PO QHS [facility] Last Admin: 08/09/18 21:07 Dose: 2 mg Gabapentin (Neurontin) 300 mg PO BID [facility] Last Admin: 08/09/18 21:06 Dose: 300 mg Heparin Sodium (Beef Lung) (Heparin 500 Unit/5 Ml (100/Ml)) 500 unit IV UD PRN PRN Reason: HEPARIN FLUSH Heparin Sodium (Porcine) (Heparin Na) 5,000 unit SC Q12 [facility] Last Admin: 08/09/18 21:07 Dose: 5,000 unit Hydralazine HCl (Apresoline Iv) 10 mg IV Q6H PRN PRN PRN Reason: Systolic BP >160 Last Admin: 08/10/18 02:45 Dose: 10 mg Ceftriaxone Sodium (Rocephin) 1 gm in 50 mls @ 100 mls/hr IV Q24 [facility] Last Admin: 08/09/18 11:21 Dose: 100 mls/hr Sodium Chloride () 1,000 mls @ 0 mls/hr IV .Q0M [facility] Labetalol HCl (Trandate) 5 mg IV X1 PRN PRN Reason: SBP > 160 when pulling sheath Stop: 08/11/18 10:06 Losartan Potassium (Cozaar) 25 mg PO DAILY [facility] Nebivolol (Bystolic) 10 mg PO DAILY [facility] Last Admin: 08/09/18 05:30 Dose: 10 mg Sodium Chloride () 5 - 30 ml IV UD PRN PRN Reason: SALINE FLUSH Last Admin: 08/10/18 06:12 Dose: 5 ml Sodium Chloride () 500 ml IV BOLUS PRN PRN Reason: VASO-VAGAL PROTOCOL Tolterodine Tartrate (Detrol La) 2 mg PO DAILY [facility] Last Admin: 08/09/18 15:04 Dose: 2 mg Medical Necessity - Tobacco Use Smoking Status: Never smoker Tobacco Use: Non-smoker Assessment/Plan All Active Problems Sepsis (Acute) NSTEMI (non-ST elevated myocardial infarction) (Acute) UTI (urinary tract infection) (Acute) Gross hematuria (Acute) In brief, patient is a 78-year-old lady who presented with abdominal pain associated with altered mental status. He was also found to have elevated troponin on admission. Patient underwent left heart catheterization. Patient was found to have triple vessel disease involving the LAD circumflex as well as RCA. He had a PTCA/CHERYL of the proximal RCA, distal RCA and mid PDA lesions. Subsequently transferred to intensive care unit. 1. Sepsis secondary to acute cystitis suspicious patient currently on Rocephin awaiting final sensitivities 2. Acute non-STEMI cardiology consulted patient was seen in consultation by Dr. Dixon who did perform left heart catheterization on 08/09/2018. Patient was found to have triple vessel disease involving the LAD circumflex as well as RCA. He had a PTCA/CHERYL of the proximal RCA, distal RCA and mid PDA lesions 3. Hematuria secondary to cystitis as well as systemic use of anticoagulation patient was seen in consultation by Dr. Delgado with urology had noted recommendations reviewed including decision to keep Truong in 4. Acute kidney injury: Secondary to sepsis with subsequent ATN resolved 5. Acute metabolic encephalopathy secondary to acute kidney injury 7. BPH: Patient is on Cardura 8. Hypertension remains controlled 9. DVT prophylaxis SCDs avoided the use of anticoagulation in view of patient's hematuria Active Medications Amlodipine Besylate (Norvasc) 10 mg PO DAILY [facility] Last Admin: 08/09/18 05:31 Dose: 10 mg Aspirin (Ecotrin) 81 mg PO DAILY@0800 [facility] Atropine Sulfate () 0.5 mg IV UD PRN PRN Reason: HR <50 bpm Clopidogrel Bisulfate (Plavix) 75 mg PO DAILY [facility] Last Admin: 08/09/18 05:31 Dose: 75 mg Doxazosin Mesylate (Cardura) 2 mg PO QHS [facility] Last Admin: 08/09/18 21:07 Dose: 2 mg Gabapentin (Neurontin) 300 mg PO BID [facility] Last Admin: 08/09/18 21:06 Dose: 300 mg Heparin Sodium (Beef Lung) (Heparin 500 Unit/5 Ml (100/Ml)) 500 unit IV UD PRN PRN Reason: HEPARIN FLUSH Heparin Sodium (Porcine) (Heparin Na) 5,000 unit SC Q12 [facility] Last Admin: 08/09/18 21:07 Dose: 5,000 unit Hydralazine HCl (Apresoline Iv) 10 mg IV Q6H PRN PRN PRN Reason: Systolic BP >160 Last Admin: 08/10/18 02:45 Dose: 10 mg Ceftriaxone Sodium (Rocephin) 1 gm in 50 mls @ 100 mls/hr IV Q24 [facility] Last Admin: 08/09/18 11:21 Dose: 100 mls/hr Sodium Chloride () 1,000 mls @ 0 mls/hr IV .Q0M [facility] Labetalol HCl (Trandate) 5 mg IV X1 PRN PRN Reason: SBP > 160 when pulling sheath Stop: 08/11/18 10:06 Losartan Potassium (Cozaar) 25 mg PO DAILY [facility] Nebivolol (Bystolic) 10 mg PO DAILY [facility] Last Admin: 08/09/18 05:30 Dose: 10 mg Sodium Chloride () 5 - 30 ml IV UD PRN PRN Reason: SALINE FLUSH Last Admin: 08/10/18 06:12 Dose: 5 ml Sodium Chloride () 500 ml IV BOLUS PRN PRN Reason: VASO-VAGAL PROTOCOL Tolterodine Tartrate (Detrol La) 2 mg PO DAILY [facility] Last Admin: 08/09/18 15:04 Dose: 2 mg Code Visit Inpatient E&M: 84929 [facility] Hosp L2
--- NOTE | 2018-08-10 07:55 | PN_ITS ---
Patient Problems: Active and Suspected Problems Sepsis (Acute) NSTEMI (non-ST elevated myocardial infarction) (Acute) UTI (urinary tract infection) (Acute) Gross hematuria (Acute) Subjective: 08/09/2018. Patient underwent left heart catheterization. Patient was found to have triple vessel disease involving the LAD circumflex as well as RCA. He had a PTCA/CHERYL of the proximal RCA, distal RCA and mid PDA lesions. Subsequently transferred to intensive care unit. Patient's urine cultures came back positive for staph species. Patient is on Rocephin awaiting final sensitivities. Objective: GENERAL: Affect HEENT: Atraumatic; EYES; Anicteric, no jaundice NECK; supple, normal thyroid, RESPIRATORY: Diminished to auscultation bilaterally, GI; abdomen nondistended nontender CARDIOVASCULAR: Regular S1 S2, no audible murmurs : No Renal angle tenderness; Truong catheter in place EXTREMITIES: No edema, no clubbing, NEURO: Awake; no lateralizing signs. SKIN: No Rash PSYCH; Normal affect Vitals/I&O's: Vital Signs Temp Pulse Resp BP Pulse Ox 98.9 F 68 16 149/52 H 96 08/10/18 07:49 08/10/18 07:27 08/10/18 07:00 08/10/18 07:00 08/10/18 07:00 Oxygen Flow Rate (L/min) 2 Oxygen Delivery Method Nasal Cannula Weight: 102 kg Body Mass Index (BMI) 32.4 Intake and Output for Last 24 Hours 08/08/18 08/09/18 08/10/18 23:59 23:59 23:59 Intake Total 3697 / 3697 2346 / 2346 380 / 380 Output Total 650 / 650 1350 / 1350 300 / 300 Balance 3047 / 3047 996 / 996 80 / 80 Microbiology Past 72 Hours 08/07/18 16:05 Blood Culture (Wb) - Anticubital Right Blood Culture - Preliminary No growth in 48 hours. 08/07/18 15:40 Blood Culture (Wb) - Anticubital Left Blood Culture - Preliminary No growth in 48 hours. 08/07/18 16:37 Urine, Clean Catch Urine Culture - Preliminary Staphylococcus species 08/07/18 15:45 Mucosa - Nose Influenza Types A,B Direct FA (LATESHA) - Final Laboratory Results 08/09/18 10:01: Activated Clotting Time 224 H 08/10/18 04:45: WBC 9.5, RBC 4.16 L, Hgb 12.8 L, Hct 37.9 L, MCV 91.1, MCH 30.8, MCHC 33.8, RDW 13.1, RDW Differential 43.1, Plt Count 114 L, MPV 10.2, Differential Comment SCANNED 08/10/18 04:45: Sodium 143, Potassium 3.5, Chloride 113 H, Carbon Dioxide 19.0 L , Anion Gap 11, BUN 23 H, Creatinine 1.02, Estim Creat Clear Calc 65.62, Est GFR (MDRD) Af Amer 91, Est GFR (MDRD) Non-Af 75, BUN/Creatinine Ratio 22.5 H, Glucose 113 H, Calcium 8.0 L, Triglycerides 99, Cholesterol 125, LDL Cholesterol 80, VLDL Cholesterol 20, HDL Cholesterol 25 L Current Medications Amlodipine Besylate (Norvasc) 10 mg PO DAILY [facility] Last Admin: 08/09/18 05:31 Dose: 10 mg Aspirin (Ecotrin) 81 mg PO DAILY@0800 [facility] Atropine Sulfate () 0.5 mg IV UD PRN PRN Reason: HR <50 bpm Clopidogrel Bisulfate (Plavix) 75 mg PO DAILY [facility] Last Admin: 08/09/18 05:31 Dose: 75 mg Doxazosin Mesylate (Cardura) 2 mg PO QHS [facility] Last Admin: 08/09/18 21:07 Dose: 2 mg Gabapentin (Neurontin) 300 mg PO BID [facility] Last Admin: 08/09/18 21:06 Dose: 300 mg Heparin Sodium (Beef Lung) (Heparin 500 Unit/5 Ml (100/Ml)) 500 unit IV UD PRN PRN Reason: HEPARIN FLUSH Heparin Sodium (Porcine) (Heparin Na) 5,000 unit SC Q12 [facility] Last Admin: 08/09/18 21:07 Dose: 5,000 unit Hydralazine HCl (Apresoline Iv) 10 mg IV Q6H PRN PRN PRN Reason: Systolic BP >160 Last Admin: 08/10/18 02:45 Dose: 10 mg Ceftriaxone Sodium (Rocephin) 1 gm in 50 mls @ 100 mls/hr IV Q24 [facility] Last Admin: 08/09/18 11:21 Dose: 100 mls/hr Sodium Chloride () 1,000 mls @ 0 mls/hr IV .Q0M [facility] Labetalol HCl (Trandate) 5 mg IV X1 PRN PRN Reason: SBP > 160 when pulling sheath Stop: 08/11/18 10:06 Losartan Potassium (Cozaar) 25 mg PO DAILY [facility] Nebivolol (Bystolic) 10 mg PO DAILY [facility] Last Admin: 08/09/18 05:30 Dose: 10 mg Sodium Chloride () 5 - 30 ml IV UD PRN PRN Reason: SALINE FLUSH Last Admin: 08/10/18 06:12 Dose: 5 ml Sodium Chloride () 500 ml IV BOLUS PRN PRN Reason: VASO-VAGAL PROTOCOL Tolterodine Tartrate (Detrol La) 2 mg PO DAILY [facility] Last Admin: 08/09/18 15:04 Dose: 2 mg Medical Necessity - Tobacco Use Smoking Status: Never smoker Tobacco Use: Non-smoker Assessment/Plan All Active Problems Sepsis (Acute) NSTEMI (non-ST elevated myocardial infarction) (Acute) UTI (urinary tract infection) (Acute) Gross hematuria (Acute) In brief, patient is a 78-year-old lady who presented with abdominal pain associated with altered mental status. He was also found to have elevated troponin on admission. Patient underwent left heart catheterization. Patient was found to have triple vessel disease involving the LAD circumflex as well as RCA. He had a PTCA/CHERYL of the proximal RCA, distal RCA and mid PDA lesions. Subsequently transferred to intensive care unit. 1. Sepsis secondary to acute cystitis suspicious patient currently on Rocephin awaiting final sensitivities 2. Acute non-STEMI cardiology consulted patient was seen in consultation by Dr. Dixon who did perform left heart catheterization on 08/09/2018. Patient was found to have triple vessel disease involving the LAD circumflex as well as RCA. He had a PTCA/CHERYL of the proximal RCA, distal RCA and mid PDA lesions 3. Hematuria secondary to cystitis as well as systemic use of anticoagulation patient was seen in consultation by Dr. Delgado with urology had noted recommendations reviewed including decision to keep Truong in 4. Acute kidney injury: Secondary to sepsis with subsequent ATN resolved 5. Acute metabolic encephalopathy secondary to acute kidney injury 7. BPH: Patient is on Cardura 8. Hypertension remains controlled 9. DVT prophylaxis SCDs avoided the use of anticoagulation in view of patient's hematuria Active Medications Amlodipine Besylate (Norvasc) 10 mg PO DAILY [facility] Last Admin: 08/09/18 05:31 Dose: 10 mg Aspirin (Ecotrin) 81 mg PO DAILY@0800 [facility] Atropine Sulfate () 0.5 mg IV UD PRN PRN Reason: HR <50 bpm Clopidogrel Bisulfate (Plavix) 75 mg PO DAILY [facility] Last Admin: 08/09/18 05:31 Dose: 75 mg Doxazosin Mesylate (Cardura) 2 mg PO QHS [facility] Last Admin: 08/09/18 21:07 Dose: 2 mg Gabapentin (Neurontin) 300 mg PO BID [facility] Last Admin: 08/09/18 21:06 Dose: 300 mg Heparin Sodium (Beef Lung) (Heparin 500 Unit/5 Ml (100/Ml)) 500 unit IV UD PRN PRN Reason: HEPARIN FLUSH Heparin Sodium (Porcine) (Heparin Na) 5,000 unit SC Q12 [facility] Last Admin: 08/09/18 21:07 Dose: 5,000 unit Hydralazine HCl (Apresoline Iv) 10 mg IV Q6H PRN PRN PRN Reason: Systolic BP >160 Last Admin: 08/10/18 02:45 Dose: 10 mg Ceftriaxone Sodium (Rocephin) 1 gm in 50 mls @ 100 mls/hr IV Q24 [facility] Last Admin: 08/09/18 11:21 Dose: 100 mls/hr Sodium Chloride () 1,000 mls @ 0 mls/hr IV .Q0M [facility] Labetalol HCl (Trandate) 5 mg IV X1 PRN PRN Reason: SBP > 160 when pulling sheath Stop: 08/11/18 10:06 Losartan Potassium (Cozaar) 25 mg PO DAILY [facility] Nebivolol (Bystolic) 10 mg PO DAILY [facility] Last Admin: 08/09/18 05:30 Dose: 10 mg Sodium Chloride () 5 - 30 ml IV UD PRN PRN Reason: SALINE FLUSH Last Admin: 08/10/18 06:12 Dose: 5 ml Sodium Chloride () 500 ml IV BOLUS PRN PRN Reason: VASO-VAGAL PROTOCOL Tolterodine Tartrate (Detrol La) 2 mg PO DAILY [facility] Last Admin: 08/09/18 15:04 Dose: 2 mg Code Visit Inpatient E&M: 69506 [facility] Hosp L2
[2018-08-10] MEDS: Tolterodine Tartrate 2 MG CAP.SA PO (09:42)
[2018-08-10] MEDS: Heparin Injection (Vial) 5,000 UNIT/ML VIAL 5000 UNIT SC ×2 (09:42→22:29)
[2018-08-10] MEDS: Nebivolol HCl 10 MG Tablet PO (09:42)
[2018-08-10] MEDS: Clopidogrel Bisulfate 75 MG Tablet PO (09:42)
[2018-08-10] MEDS: Gabapentin 300 MG Capsule PO ×2 (09:42→22:29)
[2018-08-10] MEDS: Losartan Potassium 25 MG Tablet PO (09:42)
[2018-08-10] MEDS: amLODIPine 10 MG Tablet PO (09:42)
[2018-08-10] MEDS: Ceftriaxone 1 GM/50 ML BAG IV (09:43)
--- NOTE | 2018-08-10 10:15 | EKG12_ITS ---
Test Reason : AM Blood Pressure : / mmHG Vent. Rate : 071 BPM Atrial Rate : 071 BPM P-R Int : 180 ms QRS Dur : 114 ms QT Int : 446 ms P-R-T Axes : 046 -43 038 degrees QTc Int : 484 ms Normal sinus rhythm Left axis deviation Inferior infarct , age undetermined Nonspecific T wave abnormality Abnormal ECG Confirmed by BIBI ORTIZ, JILL ([id number]), publications editor FUAD MEZA ([id number]) on 08/15/2018 1:04:49 PM Referred By: Tiago Orr Confirmed By:JILL MTZ MD
--- NOTE | 2018-08-10 12:47 | RAD_ITS ---
STUDY: X-RAY CHEST REASON FOR EXAM: Male, 78 years old. Short of breath and confusion. TECHNIQUE: Single AP portable view of the chest. COMPARISON: 08/07/2018. FINDINGS: Continued low lung volumes. Mild patchy areas of density suggested in both lungs most consistent with areas of mild subsegmental atelectasis. No definite infiltrates or effusions. There is mild cardiac enlargement. Normal mediastinum and [place]ent[place]. Normal visualized pulmonary arteries. Normal visualized aortic arch and descending thoracic aorta. Normal visualized thoracic spine. Normal visualized ribs, clavicles, and shoulders. There is no demonstrated abnormality of the visualized soft tissue structures of the upper abdomen. RAD/Chest 1 View IMPRESSION: Continued low lung volumes. Mild patchy areas of density suggested in both lungs most consistent with areas of mild subsegmental atelectasis. Electronically Signed: Ata Ulloa MD at 15:56 EDT , Service support ,
--- NOTE | 2018-08-10 12:48 | PN.CARD_ITS ---
Subjectve: Appears mildly short of breath. Denies any complaints of dyspnea. No chest pain Objective: Vital Signs Temp Pulse Resp BP Pulse Ox 98.9 F 64 18 137/61 H 92 08/10/18 07:49 08/10/18 11:10 08/10/18 11:00 08/10/18 11:00 08/10/18 11:00 Oxygen Flow Rate (L/min) 2 Oxygen Delivery Method Room Air Weight: 102 kg Body Mass Index (BMI) 32.4 Intake and Output for Last 24 Hours 08/08/18 08/09/18 08/10/18 23:59 23:59 23:59 Intake Total 3697 / 3697 2346 / 2346 670 / 670 Output Total 650 / 650 1350 / 1350 300 / 300 Balance 3047 / 3047 996 / 996 370 / 370 General: Awake, Alert Neck: Supple Lungs: - - Diminished bilaterally Cardiovascular: Regular Rhythm, Normal S1, Normal S2 Extremities: - - No edema. Right groin stable. 08/10/18 04:45: WBC 9.5, RBC 4.16 L, Hgb 12.8 L, Hct 37.9 L, MCV 91.1, MCH 30.8, MCHC 33.8, RDW 13.1, RDW Differential 43.1, Plt Count 114 L, MPV 10.2 08/10/18 04:45: Sodium 143, Potassium 3.5, Chloride 113 H, Carbon Dioxide 19.0 L , Anion Gap 11, BUN 23 H, Creatinine 1.02, Est GFR (MDRD) Af Amer 91, Est GFR (MDRD) Non-Af 75, BUN/Creatinine Ratio 22.5 H, Glucose 113 H, Calcium 8.0 L, Triglycerides 99, Cholesterol 125, LDL Cholesterol 80, VLDL Cholesterol 20, HDL Cholesterol 25 L Rhythm: EKG: ECHO: Stress Test: Cardiac Cath: PCI: CT Surgery: Holter monitor: EPS: PPM: CXR: Chest CT Scan: Medical Necessity - Tobacco Use Smoking Status: Never smoker Tobacco Use: Non-smoker Assessment/Plan 1. Non-ST elevation myocardial infarction status post drug-eluting stent placement to the right coronary artery. Stable. 2. Patient denies any shortness of breath but he does appear slightly dyspneic. Diminished breath sounds bilaterally. Will check a chest x-ray 3. UTI. 4. Mild LV systolic dysfunction. Continue angiotensin receptor ton and beta-ton. 5. Hematuria. Hemoglobin stable
[2018-08-10] MEDS: Doxazosin 1 MG Tablet 2 MG PO (22:29)
[2018-08-11] VITALS (12 sets, daily range): BP systolic 127–152; BP diastolic 58–74; PULSE 62–80; RESP 16–20; TEMP 36.3–37.3; O2SAT 93–95
[2018-08-11 06:29] LABS: Anion Gap 9 (5-15); BUN 25 mg/dL (7-18); BUN/Creat Ratio 25.7 RATIO (10-20); Calcium,Total 7.8 mg/dL (8.5-10.1); Chloride 113 mmol/L (98-107); Creatinine, Serum 0.97 mg/dL (0.70-1.30); EST Glomerular Filtration Rate 80 mL/min (>60); Est Glom Filt Rate - Afr Amer 96 mL/min (>60); Glucose 101 mg/dL (74-106); Potassium 3.6 mmol/L (3.5-5.1); Sodium Level 140 mmol/L (136-145)
--- NOTE | 2018-08-11 10:00 | EKG12_ITS ---
Test Reason : AM EKG Blood Pressure : / mmHG Vent. Rate : 072 BPM Atrial Rate : 072 BPM P-R Int : 176 ms QRS Dur : 108 ms QT Int : 432 ms P-R-T Axes : 031 -47 022 degrees QTc Int : 473 ms Normal sinus rhythm Left anterior fascicular block Inferior infarct , age undetermined Abnormal ECG Confirmed by BIBI ORTIZ, JILL ([id number]), photograph editor FUAD MEZA ([id number]) on 08/15/2018 11:39:57 AM Referred By: Tiago Orr Confirmed By:JILL MTZ MD
[2018-08-11] MEDS: Clopidogrel Bisulfate 75 MG Tablet PO (10:03)
[2018-08-11] MEDS: Nebivolol HCl 10 MG Tablet PO (10:03)
[2018-08-11] MEDS: Gabapentin 300 MG Capsule PO ×2 (10:03→22:08)
[2018-08-11] MEDS: amLODIPine 10 MG Tablet PO (10:03)
[2018-08-11] MEDS: Tolterodine Tartrate 2 MG CAP.SA PO (10:04)
[2018-08-11] MEDS: Losartan Potassium 25 MG Tablet PO (10:04)
[2018-08-11] MEDS: Heparin Injection (Vial) 5,000 UNIT/ML VIAL 5000 UNIT SC ×2 (10:05→22:09)
[2018-08-11] MEDS: 0.9% NaCl Peripheral Flush Adult/Peds IV (10:22)
[2018-08-11] MEDS: Ceftriaxone 1 GM/50 ML BAG IV (10:25)
[2018-08-11] MEDS: Ipratropium/Albuterol Sulfate 3 ML AMPUL.NEB INHALATION ×2 (10:57→15:16)
--- NOTE | 2018-08-11 11:16 | PCM.PROGNOTE ---
<Jennifer Lewis - Last Filed: 08/11/18 11:28> Patient Problems: Active and Suspected Problems Sepsis (Acute) NSTEMI (non-ST elevated myocardial infarction) (Acute) UTI (urinary tract infection) (Acute) Gross hematuria (Acute) Subjective: Patient seen and examined. Patient appears to have mild labored breathing although he denies shortness of breath. Confused on assessment. Denies current complaints. - Physical Exam General: Alert, Cooperative HEENT: Atraumatic, PERRLA, EOMI, Normocephalic Neck: Supple, No JVD, Negative Carotid Bruits Lungs: Clear to auscultation, Diminished Cardiovascular: Regular rate, Regular Rhythm, Normal S1, Normal S2, No murmurs Abdomen: Bowel Sounds Present, Soft, Non Tender, Non-Distended, Obese Extremities: No clubbing, No cyanosis, No edema, Capillary Refill Less than 3 Seconds Skin: No rashes, No breakdown Musculoskeletal: No Tenderness to Palpation of Joints or Extremities Neurological: Cranial nerves II-XII grossly intact, Neuro grossly intact Psych/Mental Status: Normal Affect, Appropriate Vital Signs Temp Pulse Resp BP Pulse Ox 98.3 F 73 19 H 134/69 H 95 08/11/18 09:55 08/11/18 09:55 08/11/18 09:55 08/11/18 09:55 08/11/18 09:55 Oxygen Flow Rate (L/min) 2 Oxygen Delivery Method Nasal Cannula Weight: 224 lb 10.417 oz Body Mass Index (BMI) 32.4 Intake and Output for Last 24 Hours 08/09/18 08/10/18 08/11/18 23:59 23:59 23:59 Intake Total 2346 / 2346 870 / 870 200 / 200 Output Total 1350 / 1350 480 / 480 575 / 575 Balance 996 / 996 390 / 390 -375 / -375 Microbiology Past 72 Hours 08/07/18 16:37 Urine Culture - Final Urine, Clean Catch Staphylococcus warneri 08/07/18 16:05 Blood Culture - Preliminary Blood Culture (Wb) - Anticubital Right No growth in 48 hours. 08/07/18 15:40 Blood Culture - Preliminary Blood Culture (Wb) - Anticubital Left No growth in 48 hours. Laboratory Tests Past 24 Hrs 08/11/18 05:20 Sodium 140 Potassium 3.6 Chloride 113 H Carbon Dioxide 18.0 L Anion Gap 9 BUN 25 H Creatinine 0.97 Estim Creat Clear Calc 69.00 Est GFR (MDRD) Af Amer 96 Est GFR (MDRD) Non-Af 80 BUN/Creatinine Ratio 25.7 H Glucose 101 Calcium 7.8 L Medical Necessity - Tobacco Use Smoking Status: Never smoker Tobacco Use: Non-smoker Assessment/Plan All Active Problems Sepsis (Acute) NSTEMI (non-ST elevated myocardial infarction) (Acute) UTI (urinary tract infection) (Acute) Gross hematuria (Acute) Patient is a 78-year-old male admitted 08/07/2018 due to abdominal pain. He has a past medical history of hypertension, BPH. 1. Acute sepsis secondary to acute Staphylococcus warneri cystitis with associated hematuria-UA positive on admission. Urine culture + Staphylococcus warneri species. Blood cultures show no growth. Continue IV Rocephin. Mental status slowly improving. Schwarz in place. Urology consulted for hematuria. Patient will follow up with urology as outpatient with plan for renal imaging, urine cytology and cystoscopic evaluation. Urine appears clear this morning. Okay for anticoagulation per urology. Leave schwarz in place until further outpatient evaluation by urology. 2. Acute kidney injury on chronic kidney disease stage III-Resolved. Continue IV fluids. Trend BMP. 3. Acute metabolic encephalopathy secondary to #1/#2. Improving. 4. CAD/NSTEMI status post PTCA/CHERYL- Dr. Dixon consulted. Patient underwent cardiac catheterization 08/09/2018 which demonstrated triple vessel CAD of the LCx, LAD and RCA. Patient underwent successful PTCA/CHERYL of proximal RCA, distal RCA, mid PDA. Patient will continue aspirin indefinitely, Plavix for at least 12 months. Stress test in 4 weeks to evaluate anterior wall for possible PCI to LAD. Per cardiology, would not pursue PCI of LCx. Patient will follow up with Dr. Dixon at discharge. Echocardiogram showed an EF of 40-45%, stage I diastolic dysfunction. 5. Acute hypoxic respiratory insufficiency-chest x-ray 08/10/2018 showed low lung volumes, mild patchy areas of density consistent with mild subsegmental atelectasis. Albuterol DuoNeb aerosols. Encourage incentive spirometer. Ambulation. 6. BPH-continue home doxazosin, oxybutynin. 7. Hypertension-continue home amlodipine, losartan regimen, beta ton. DVT prophylaxis- SCDs, heparin subcu. Discharge planning: [facility], SNF at discharge pending pre-CERT. Plans for eventual return to assisted living. [facility]. PT/OT. This patient was seen by AZRA Gallo under the supervision of Dr. Hand. <Noel Hand - Last Filed: 08/11/18 12:31> - Physical Exam Vital Signs Temp Pulse Resp BP Pulse Ox 98.3 F 65 20 H 134/69 H 95 08/11/18 09:55 08/11/18 11:32 08/11/18 10:57 08/11/18 09:55 08/11/18 09:55 Oxygen Flow Rate (L/min) 2 Oxygen Delivery Method Nasal Cannula Weight: 101.9 kg Body Mass Index (BMI) 32.4 Intake and Output for Last 24 Hours 08/09/18 08/10/18 08/11/18 23:59 23:59 23:59 Intake Total 2346 / 2346 870 / 870 745 / 745 Output Total 1350 / 1350 480 / 480 825 / 825 Balance 996 / 996 390 / 390 -80 / -80 Microbiology Past 72 Hours 08/07/18 16:37 Urine Culture - Final Urine, Clean Catch Staphylococcus warneri 08/07/18 16:05 Blood Culture - Preliminary Blood Culture (Wb) - Anticubital Right No growth in 48 hours. 08/07/18 15:40 Blood Culture - Preliminary Blood Culture (Wb) - Anticubital Left No growth in 48 hours. Laboratory Tests Past 24 Hrs 08/11/18 05:20 Sodium 140 Potassium 3.6 Chloride 113 H Carbon Dioxide 18.0 L Anion Gap 9 BUN 25 H Creatinine 0.97 Estim Creat Clear Calc 69.00 Est GFR (MDRD) Af Amer 96 Est GFR (MDRD) Non-Af 80 BUN/Creatinine Ratio 25.7 H Glucose 101 Calcium 7.8 L Assessment/Plan This patient was seen in conjunction with AZRA Gallo . I have independently interviewed and examined the patient and reviewed pertinent historical, laboratory, and other data. Please refer to AZRA Gallo note for details of this patient's presentation, findings, and recommendations. I have reviewed AZRA Gallo note and concur with documented findings. In brief, patient is a 78-year-old lady who presented with abdominal pain associated with altered mental status. He was also found to have elevated troponin on admission 08/09/2018. Patient underwent left heart catheterization. Patient was found to have triple vessel disease involving the LAD circumflex as well as RCA. He had a PTCA/CHERYL of the proximal RCA, distal RCA and mid PDA lesions. Subsequently transferred to intensive care unit. 08/11/2018. Patient was transferred from intensive care unit to PCU on 08/10/2018. Seen this a.m. breathing appears to be more labored chest x-ray obtained demonstrated atelectasis did encourage the use of incentive spirometry. Urine cultures positive for staph species with sensitivity to oxacillin patient responded to treatment with Rocephin Physical Examination: GENERAL: Affect HEENT: Atraumatic; EYES; Anicteric, NECK; supple, normal thyroid, RESPIRATORY: Diminished to auscultation bilaterally, CARDIOVASCULAR: Regular S1 S2, no audible murmurs : No Renal angle tenderness; Schwarz catheter in place EXTREMITIES: No edema, no clubbing, NEURO: Awake; no lateralizing signs. SKIN: No Rash PSYCH; Normal affect Assessment: 1. Sepsis secondary to acute cystitis with Staphylococcus warneri 2. Hematuria secondary to cystitis as well as systemic use of anticoagulation: Resolved 3. Acute kidney injury: Resolved 4. Acute metabolic encephalopathy secondary to acute kidney injury 5. Acute non-STEMI cardiology consulted; went left heart catheterization with subsequent stent placement as discussed above 6. Atelectasis did encourage the use of incentive spirometry 7. BPH 8. Hypertension Recommendations: 1. I have discussed the results of my overview and impressions with the patient 2. Options for management were reviewed Microbiology 08/07/18 16:37 Urine, Clean Catch Urine Culture - Final Staphylococcus warneri Active Medications Albuterol Sulfate (Ventolin Aerosols) 2.5 mg INHALATION Q2H PRN PRN PRN Reason: SHORTNESS OF BREATH Albuterol/Ipratropium (Duoneb) 3 ml INHALATION Q4H.RT [facility] Last Admin: 08/11/18 10:57 Dose: 3 ml Amlodipine Besylate (Norvasc) 10 mg PO DAILY [facility] Last Admin: 08/11/18 10:03 Dose: 10 mg Aspirin (Ecotrin) 81 mg PO DAILY@0800 [facility] Last Admin: 08/11/18 08:37 Dose: Not Given Atropine Sulfate () 0.5 mg IV UD PRN PRN Reason: HR <50 bpm Clopidogrel Bisulfate (Plavix) 75 mg PO DAILY [facility] Last Admin: 08/11/18 10:03 Dose: 75 mg Doxazosin Mesylate (Cardura) 2 mg PO QHS [facility] Last Admin: 08/10/18 22:29 Dose: 2 mg Gabapentin (Neurontin) 300 mg PO BID [facility] Last Admin: 08/11/18 10:03 Dose: 300 mg Heparin Sodium (Beef Lung) (Heparin 500 Unit/5 Ml (100/Ml)) 500 unit IV UD PRN PRN Reason: HEPARIN FLUSH Heparin Sodium (Porcine) (Heparin Na) 5,000 unit SC Q12 [facility] Last Admin: 08/11/18 10:05 Dose: 5,000 unit Hydralazine HCl (Apresoline Iv) 10 mg IV Q6H PRN PRN PRN Reason: Systolic BP >160 Last Admin: 08/10/18 02:45 Dose: 10 mg Ceftriaxone Sodium (Rocephin) 1 gm in 50 mls @ 100 mls/hr IV Q24 [facility] Last Admin: 08/11/18 10:25 Dose: 100 mls/hr Sodium Chloride () 1,000 mls @ 0 mls/hr IV .Q0M [facility] Losartan Potassium (Cozaar) 25 mg PO DAILY [facility] Last Admin: 08/11/18 10:04 Dose: 25 mg Nebivolol (Bystolic) 10 mg PO DAILY [facility] Last Admin: 08/11/18 10:03 Dose: 10 mg Sodium Chloride () 5 - 30 ml IV UD PRN PRN Reason: SALINE FLUSH Last Admin: 08/11/18 10:22 Dose: 10 ml Sodium Chloride () 500 ml IV BOLUS PRN PRN Reason: VASO-VAGAL PROTOCOL Tolterodine Tartrate (Detrol La) 2 mg PO DAILY [facility] Last Admin: 08/11/18 10:04 Dose: 2 mg Code Visit Inpatient E&M: 70915 Subs Hosp L2
--- NOTE | 2018-08-11 11:28 | PN_ITS ---
<Jennifer Lewis - Last Filed: 08/11/18 11:28> Patient Problems: Active and Suspected Problems Sepsis (Acute) NSTEMI (non-ST elevated myocardial infarction) (Acute) UTI (urinary tract infection) (Acute) Gross hematuria (Acute) Subjective: Patient seen and examined. Patient appears to have mild labored breathing alt oskar he denies shortness of breath. Confused on assessment. Denies current complaints. - Physical Exam General: Alert, Cooperative HEENT: Atraumatic, PERRLA, EOMI, Normocephalic Neck: Supple, No JVD, Negative Carotid Bruits Lungs: Clear to auscultation, Diminished Cardiovascular: Regular rate, Regular Rhythm, Normal S1, Normal S2, No murmurs Abdomen: Bowel Sounds Present, Soft, Non Tender, Non-Distended, Obese Extremities: No clubbing, No cyanosis, No edema, Capillary Refill Less than 3 Seconds Skin: No rashes, No breakdown Musculoskeletal: No Tenderness to Palpation of Joints or Extremities Neurological: Cranial nerves II-XII grossly intact, Neuro grossly intact Psych/Mental Status: Normal Affect, Appropriate Vital Signs Temp Pulse Resp BP Pulse Ox 98.3 F 73 19 H 134/69 H 95 08/11/18 09:55 08/11/18 09:55 08/11/18 09:55 08/11/18 09:55 08/11/18 09:55 Oxygen Flow Rate (L/min) 2 Oxygen Delivery Method Nasal Cannula Weight: 224 lb 10.417 oz Body Mass Index (BMI) 32.4 Intake and Output for Last 24 Hours 08/09/18 08/10/18 08/11/18 23:59 23:59 23:59 Intake Total 2346 / 2346 870 / 870 200 / 200 Output Total 1350 / 1350 480 / 480 575 / 575 Balance 996 / 996 390 / 390 -375 / -375 Microbiology Past 72 Hours 08/07/18 16:37 Urine Culture - Final Urine, Clean Catch Staphylococcus warneri 08/07/18 16:05 Blood Culture - Preliminary Blood Culture (Wb) - Anticubital Right No growth in 48 hours. 08/07/18 15:40 Blood Culture - Preliminary Blood Culture (Wb) - Anticubital Left No growth in 48 hours. Laboratory Tests Past 24 Hrs 08/11/18 05:20 Sodium 140 Potassium 3.6 Chloride 113 H Carbon Dioxide 18.0 L Anion Gap 9 BUN 25 H Creatinine 0.97 Estim Creat Clear Calc 69.00 Est GFR (MDRD) Af Amer 96 Est GFR (MDRD) Non-Af 80 BUN/Creatinine Ratio 25.7 H Glucose 101 Calcium 7.8 L Medical Necessity - Tobacco Use Smoking Status: Never smoker Tobacco Use: Non-smoker Assessment/Plan All Active Problems Sepsis (Acute) NSTEMI (non-ST elevated myocardial infarction) (Acute) UTI (urinary tract infection) (Acute) Gross hematuria (Acute) Patient is a 78-year-old male admitted 08/07/2018 due to abdominal pain. He has a past medical history of hypertension, BPH. 1. Acute sepsis secondary to acute Staphylococcus warneri cystitis with associated hematuria-UA positive on admission. Urine culture + Staphylococcus warneri species. Blood cultures show no growth. Continue IV Rocephin. Mental status slowly improving. Schwarz in place. Urology consulted for hematuria. Patient will follow up with urology as outpatient with plan for renal imaging, urine cytology and cystoscopic evaluation. Urine appears clear this morning. Okay for anticoagulation per urology. Leave schwarz in place until further outpatient evaluation by urology. 2. Acute kidney injury on chronic kidney disease stage III-Resolved. Continue IV fluids. Trend BMP. 3. Acute metabolic encephalopathy secondary to #1/#2. Improving. 4. CAD/NSTEMI status post PTCA/CHERYL- Dr. Dixon consulted. Patient underwent cardiac catheterization 08/09/2018 which demonstrated triple vessel CAD of the LCx, LAD and RCA. Patient underwent successful PTCA/CHERYL of proximal RCA, distal RCA, mid PDA. Patient will continue aspirin indefinitely, Plavix for at least 12 months. Stress test in 4 weeks to evaluate anterior wall for possible PCI to LAD. Per cardiology, would not pursue PCI of LCx. Patient will follow up with Dr. Dixon at discharge. Echocardiogram showed an EF of 40-45%, stage I diastolic dysfunction. 5. Acute hypoxic respiratory insufficiency-chest x-ray 08/10/2018 showed low lung volumes, mild patchy areas of density consistent with mild subsegmental atelectasis. Albuterol DuoNeb aerosols. Encourage incentive spirometer. Ambulation. 6. BPH-continue home doxazosin, oxybutynin. 7. Hypertension-continue home amlodipine, losartan regimen, beta ton. DVT prophylaxis- SCDs, heparin subcu. Discharge planning: [facility], SNF at discharge pending pre-CERT. Plans for eventual return to assisted living. SW [facility]. PT/OT. This patient was seen by AZRA Gallo under the supervision of Dr. Hand. <Noel Hand - Last Filed: 08/11/18 12:31> - Physical Exam Vital Signs Temp Pulse Resp BP Pulse Ox 98.3 F 65 20 H 134/69 H 95 08/11/18 09:55 08/11/18 11:32 08/11/18 10:57 08/11/18 09:55 08/11/18 09:55 Oxygen Flow Rate (L/min) 2 Oxygen Delivery Method Nasal Cannula Weight: 101.9 kg Body Mass Index (BMI) 32.4 Intake and Output for Last 24 Hours 08/09/18 08/10/18 08/11/18 23:59 23:59 23:59 Intake Total 2346 / 2346 870 / 870 745 / 745 Output Total 1350 / 1350 480 / 480 825 / 825 Balance 996 / 996 390 / 390 -80 / -80 Microbiology Past 72 Hours 08/07/18 16:37 Urine Culture - Final Urine, Clean Catch Staphylococcus warneri 08/07/18 16:05 Blood Culture - Preliminary Blood Culture (Wb) - Anticubital Right No growth in 48 hours. 08/07/18 15:40 Blood Culture - Preliminary Blood Culture (Wb) - Anticubital Left No growth in 48 hours. Laboratory Tests Past 24 Hrs 08/11/18 05:20 Sodium 140 Potassium 3.6 Chloride 113 H Carbon Dioxide 18.0 L Anion Gap 9 BUN 25 H Creatinine 0.97 Estim Creat Clear Calc 69.00 Est GFR (MDRD) Af Amer 96 Est GFR (MDRD) Non-Af 80 BUN/Creatinine Ratio 25.7 H Glucose 101 Calcium 7.8 L Assessment/Plan This patient was seen in conjunction with AZRA Gallo . I have independently interviewed and examined the patient and reviewed pertinent historical, laboratory, and other data. Please refer to AZRA Gallo note for details of this patient's presentation, findings, and recommendations. I have reviewed AZRA Gallo note and concur with documented findings. In brief, patient is a 78-year-old lady who presented with abdominal pain associated with altered mental status. He was also found to have elevated troponin on admission 08/09/2018. Patient underwent left heart catheterization. Patient was found to have triple vessel disease involving the LAD circumflex as well as RCA. He had a PTCA/CHERYL of the proximal RCA, distal RCA and mid PDA lesions. Subsequently transferred to intensive care unit. 08/11/2018. Patient was transferred from intensive care unit to PCU on 08/10/2018. Seen this a.m. breathing appears to be more labored chest x-ray obtained demonstrated atelectasis did encourage the use of incentive spirometry. Urine cultures positive for staph species with sensitivity to oxacillin patient responded to treatment with Rocephin Physical Examination: GENERAL: Affect HEENT: Atraumatic; EYES; Anicteric, NECK; supple, normal thyroid, RESPIRATORY: Diminished to auscultation bilaterally, CARDIOVASCULAR: Regular S1 S2, no audible murmurs : No Renal angle tenderness; Schwarz catheter in place EXTREMITIES: No edema, no clubbing, NEURO: Awake; no lateralizing signs. SKIN: No Rash PSYCH; Normal affect Assessment: 1. Sepsis secondary to acute cystitis with Staphylococcus warneri 2. Hematuria secondary to cystitis as well as systemic use of anticoagulation: Resolved 3. Acute kidney injury: Resolved 4. Acute metabolic encephalopathy secondary to acute kidney injury 5. Acute non-STEMI cardiology consulted; went left heart catheterization with subsequent stent placement as discussed above 6. Atelectasis did encourage the use of incentive spirometry 7. BPH 8. Hypertension Recommendations: 1. I have discussed the results of my overview and impressions with the patient 2. Options for management were reviewed Microbiology 08/07/18 16:37 Urine, Clean Catch Urine Culture - Final Staphylococcus warneri Active Medications Albuterol Sulfate (Ventolin Aerosols) 2.5 mg INHALATION Q2H PRN PRN PRN Reason: SHORTNESS OF BREATH Albuterol/Ipratropium (Duoneb) 3 ml INHALATION Q4H.RT [facility] Last Admin: 08/11/18 10:57 Dose: 3 ml Amlodipine Besylate (Norvasc) 10 mg PO DAILY [facility] Last Admin: 08/11/18 10:03 Dose: 10 mg Aspirin (Ecotrin) 81 mg PO DAILY@0800 [facility] Last Admin: 08/11/18 08:37 Dose: Not Given Atropine Sulfate () 0.5 mg IV UD PRN PRN Reason: HR <50 bpm Clopidogrel Bisulfate (Plavix) 75 mg PO DAILY [facility] Last Admin: 08/11/18 10:03 Dose: 75 mg Doxazosin Mesylate (Cardura) 2 mg PO QHS [facility] Last Admin: 08/10/18 22:29 Dose: 2 mg Gabapentin (Neurontin) 300 mg PO BID [facility] Last Admin: 08/11/18 10:03 Dose: 300 mg Heparin Sodium (Beef Lung) (Heparin 500 Unit/5 Ml (100/Ml)) 500 unit IV UD PRN PRN Reason: HEPARIN FLUSH Heparin Sodium (Porcine) (Heparin Na) 5,000 unit SC Q12 [facility] Last Admin: 08/11/18 10:05 Dose: 5,000 unit Hydralazine HCl (Apresoline Iv) 10 mg IV Q6H PRN PRN PRN Reason: Systolic BP >160 Last Admin: 08/10/18 02:45 Dose: 10 mg Ceftriaxone Sodium (Rocephin) 1 gm in 50 mls @ 100 mls/hr IV Q24 [facility] Last Admin: 08/11/18 10:25 Dose: 100 mls/hr Sodium Chloride () 1,000 mls @ 0 mls/hr IV .Q0M [facility] Losartan Potassium (Cozaar) 25 mg PO DAILY [facility] Last Admin: 08/11/18 10:04 Dose: 25 mg Nebivolol (Bystolic) 10 mg PO DAILY [facility] Last Admin: 08/11/18 10:03 Dose: 10 mg Sodium Chloride () 5 - 30 ml IV UD PRN PRN Reason: SALINE FLUSH Last Admin: 08/11/18 10:22 Dose: 10 ml Sodium Chloride () 500 ml IV BOLUS PRN PRN Reason: VASO-VAGAL PROTOCOL Tolterodine Tartrate (Detrol La) 2 mg PO DAILY [facility] Last Admin: 08/11/18 10:04 Dose: 2 mg Code Visit Inpatient E&M: 13525 Subs Hosp L2
[2018-08-11] MEDS: Doxazosin 1 MG Tablet 2 MG PO (22:08)
[2018-08-12] VITALS (16 sets, daily range): BP systolic 126–154; BP diastolic 64–73; PULSE 64–88; RESP 16–26; TEMP 37–37.7; O2SAT 92–95
[2018-08-12] MEDS: 0.9% NaCl Peripheral Flush Adult/Peds IV (04:25)
[2018-08-12] MEDS: Ipratropium/Albuterol Sulfate 3 ML AMPUL.NEB INHALATION ×5 (06:44→23:38)
[2018-08-12 08:02] LABS: Anion Gap 9 (5-15); BUN 26 mg/dL (7-18); BUN/Creat Ratio 22.8 RATIO (10-20); Calcium,Total 8.1 mg/dL (8.5-10.1); Chloride 110 mmol/L (98-107); Creatinine, Serum 1.14 mg/dL (0.70-1.30); EST Glomerular Filtration Rate 66 mL/min (>60); Est Glom Filt Rate - Afr Amer 80 mL/min (>60); Estimated Creatinine Clearance 58.71 ml/min; Glucose 104 mg/dL (74-106); Potassium 3.3 mmol/L (3.5-5.1); Sodium Level 142 mmol/L (136-145)
--- NOTE | 2018-08-12 09:41 | CASEMGMT ---
FANY faxed updated information to [facility]. FANY also called [facility] and asked Esperanza to start the pre-cert. Plan: [facility] pending pre-cert Madelin FAN
--- NOTE | 2018-08-12 10:00 | EKG12_ITS ---
Test Reason : AM EKG Blood Pressure : / mmHG Vent. Rate : 071 BPM Atrial Rate : 071 BPM P-R Int : 170 ms QRS Dur : 116 ms QT Int : 428 ms P-R-T Axes : 044 -45 024 degrees QTc Int : 465 ms Normal sinus rhythm Left anterior fascicular block Inferior infarct , age undetermined Abnormal ECG Confirmed by BIBI ORTIZ, JILL ([id number]), editor house organ FUAD MEZA ([id number] on 08/15/2018 11:39:05 AM Referred By: Tiago Orr Confirmed By:JILL MTZ MD
[2018-08-12] MEDS: Tolterodine Tartrate 2 MG CAP.SA PO (10:15)
[2018-08-12] MEDS: Nebivolol HCl 10 MG Tablet PO (10:15)
[2018-08-12] MEDS: Gabapentin 300 MG Capsule PO ×2 (10:15→21:41)
[2018-08-12] MEDS: Losartan Potassium 25 MG Tablet PO (10:15)
[2018-08-12] MEDS: Heparin Injection (Vial) 5,000 UNIT/ML VIAL 5000 UNIT SC ×2 (10:16→21:41)
[2018-08-12] MEDS: Clopidogrel Bisulfate 75 MG Tablet PO (10:16)
[2018-08-12] MEDS: amLODIPine 10 MG Tablet PO (10:17)
[2018-08-12] MEDS: Ceftriaxone 1 GM/50 ML BAG IV (10:31)
--- NOTE | 2018-08-12 11:09 | PCM.PROGNOTE ---
<Jennifer Lewis - Last Filed: 08/12/18 11:21> Patient Problems: Active and Suspected Problems (Last Updated 08/12/18 @ 08:43 by ROJAS DesirC) Sepsis (Acute) NSTEMI (non-ST elevated myocardial infarction) (Acute) July 2018; UTI (urinary tract infection) (Acute) Gross hematuria (Acute) Subjective: Patient seen and examined. Sitting on edge of bed with therapy. Mild shortness of breath noted. Patient states he is feeling well. Denies current complaints. Awaiting pre-cert to SNF. - Physical Exam General: Alert, Oriented x3, Cooperative HEENT: Atraumatic, PERRLA, EOMI, Normocephalic Neck: Supple, No JVD, Negative Carotid Bruits Lungs: Clear to auscultation, Diminished Cardiovascular: Regular rate, Regular Rhythm, Normal S1, Normal S2, No murmurs Abdomen: Bowel Sounds Present, Soft, Non Tender, Non-Distended, Obese Extremities: No clubbing, No cyanosis, No edema, Capillary Refill Less than 3 Seconds Skin: No rashes, No breakdown Musculoskeletal: No Tenderness to Palpation of Joints or Extremities Neurological: Cranial nerves II-XII grossly intact, Neuro grossly intact Psych/Mental Status: Normal Affect, Appropriate Vital Signs Temp Pulse Resp BP Pulse Ox 98.6 F 64 20 H 126/64 H 94 08/12/18 10:00 08/12/18 11:00 08/12/18 10:00 08/12/18 10:00 08/12/18 10:00 Oxygen Flow Rate (L/min) 2 Oxygen Delivery Method Nasal Cannula Weight: 222 lb 7.143 oz Body Mass Index (BMI) 32.4 Intake and Output for Last 24 Hours 08/10/18 08/11/18 08/12/18 23:59 23:59 23:59 Intake Total 870 / 870 1295 / 1295 220 / 220 Output Total 480 / 480 1525 / 1525 300 / 300 Balance 390 / 390 -230 / -230 -80 / -80 Microbiology Past 72 Hours 08/07/18 16:37 Urine Culture - Final Urine, Clean Catch Staphylococcus warneri 08/07/18 16:05 Blood Culture - Preliminary Blood Culture (Wb) - Anticubital Right No growth in 48 hours. 08/07/18 15:40 Blood Culture - Preliminary Blood Culture (Wb) - Anticubital Left No growth in 48 hours. Laboratory Tests Past 24 Hrs 08/12/18 05:18 Sodium 142 Potassium 3.3 L Chloride 110 H Carbon Dioxide 23.0 Anion Gap 9 BUN 26 H Creatinine 1.14 Estim Creat Clear Calc 58.71 Est GFR (MDRD) Af Amer 80 Est GFR (MDRD) Non-Af 66 BUN/Creatinine Ratio 22.8 H Glucose 104 Calcium 8.1 L Medical Necessity - Tobacco Use Smoking Status: Never smoker Tobacco Use: Non-smoker Assessment/Plan All Active Problems (Last Updated 08/12/18 @ 08:43 by Robert Cartwright NP-C) Sepsis (Acute) NSTEMI (non-ST elevated myocardial infarction) (Acute) UTI (urinary tract infection) (Acute) Gross hematuria (Acute) Patient is a 78-year-old male admitted 08/07/2018 due to abdominal pain. He has a past medical history of hypertension, BPH. 1. Acute sepsis secondary to acute Staphylococcus warneri cystitis with associated hematuria-Urine culture + Staphylococcus warneri species. Blood cultures show no growth. IV Rocephin during admission. Transition to duricef 1gm BID to complete 14 days of treatment given complicated UTI. Mental status improved. Schwarz in place. Urology consulted for hematuria. Hematuria resolved. Patient will follow up with urology as outpatient with plan for renal imaging, urine cytology and cystoscopic evaluation. Okay for anticoagulation per urology. Leave schwarz in place until further outpatient evaluation by urology. 2. Acute kidney injury on chronic kidney disease stage III-Resolved with IV fluids. 3. Acute metabolic encephalopathy secondary to #1/#2. Improved. 4. CAD/NSTEMI status post PTCA/CHERYL- Dr. Dixon consulted. Patient underwent cardiac catheterization 08/09/2018 which demonstrated triple vessel CAD of the LCx, LAD and RCA. Patient underwent successful PTCA/CHERYL of proximal RCA, distal RCA, mid PDA. Patient will continue aspirin indefinitely, Plavix for at least 12 months. Stress test in 4 weeks to evaluate anterior wall for possible PCI to LAD. Per cardiology, would not pursue PCI of LCx. Patient will follow up with Dr. Dixon at discharge. Echocardiogram showed an EF of 40-45%, stage I diastolic dysfunction. 5. Acute hypoxic respiratory insufficiency-chest x-ray 08/10/2018 showed low lung volumes, mild patchy areas of density consistent with mild subsegmental atelectasis. Albuterol DuoNeb aerosols. Encourage incentive spirometer. Ambulation. Walking pulse ox prior to DC. 6. BPH-continue home doxazosin, oxybutynin. 7. Hypertension-continue home amlodipine, losartan regimen, beta ton. DVT prophylaxis- SCDs, heparin subcu. Discharge planning: [facility], SNF at discharge pending pre-CERT. Plans for eventual return to assisted living. SW [facility]. PT/OT. This patient was seen by AZRA Gallo under the supervision of Dr. Kirk. <Jonathon Kirk - Last Filed: 08/12/18 15:38> - Physical Exam General: Alert, Cooperative HEENT: Atraumatic, Normocephalic Oral: Moist Mucosa, No Gingival or Mucosal Lesions/ Ulcerations Lungs: Clear to auscultation, Diminished Cardiovascular: Regular rate, Regular Rhythm, Normal S1, Normal S2, No murmurs Abdomen: Bowel Sounds Present, Soft, Non Tender, Non-Distended, Obese Extremities: No edema, No Calf Tenderness Skin: No rashes, No breakdown Musculoskeletal: No Tenderness to Palpation of Joints or Extremities Psych/Mental Status: Normal Affect, Appropriate Vital Signs Temp Pulse Resp BP Pulse Ox 37.0 C 66 16 126/64 H 94 08/12/18 10:00 08/12/18 14:54 08/12/18 14:54 08/12/18 10:00 08/12/18 11:12 Oxygen Flow Rate (L/min) 2 Oxygen Delivery Method Nasal Cannula Weight: 100.9 kg Body Mass Index (BMI) 32.4 Intake and Output for Last 24 Hours 08/10/18 08/11/18 08/12/18 23:59 23:59 23:59 Intake Total 870 / 870 1295 / 1295 460 / 460 Output Total 480 / 480 1525 / 1525 650 / 650 Balance 390 / 390 -230 / -230 -190 / -190 Microbiology Past 72 Hours 08/07/18 16:37 Urine Culture - Final Urine, Clean Catch Staphylococcus warneri 08/07/18 16:05 Blood Culture - Preliminary Blood Culture (Wb) - Anticubital Right No growth in 48 hours. 08/07/18 15:40 Blood Culture - Preliminary Blood Culture (Wb) - Anticubital Left No growth in 48 hours. Laboratory Tests Past 24 Hrs 08/12/18 05:18 Sodium 142 Potassium 3.3 L Chloride 110 H Carbon Dioxide 23.0 Anion Gap 9 BUN 26 H Creatinine 1.14 Estim Creat Clear Calc 58.71 Est GFR (MDRD) Af Amer 80 Est GFR (MDRD) Non-Af 66 BUN/Creatinine Ratio 22.8 H Glucose 104 Calcium 8.1 L Assessment/Plan Patient seen and examined independently. Data reviewed. I agree with the above note by the nurse practitioner. 1. sepsis Secondary to UTI 2. UTI staphylococcus warneri cystitis duricef 3. MERLIN: resolved 4. Metabolic encephalopathy resolved 2/2 abuve 5. NSTEMI s/p PCI to prox RCA, distal RCA and mid PDA. DAPT statin Code Visit Inpatient E&M: 87102 Subs Hosp L2
--- NOTE | 2018-08-12 11:21 | PN_ITS ---
<Jennifer Lewis - Last Filed: 08/12/18 11:21> Patient Problems: Active and Suspected Problems (Last Updated 08/12/18 @ 08:43 by ROJAS DesirC) Sepsis (Acute) NSTEMI (non-ST elevated myocardial infarction) (Acute) July 2018; UTI (urinary tract infection) (Acute) Gross hematuria (Acute) Subjective: Patient seen and examined. Sitting on edge of bed with therapy. Mild shortness of breath noted. Patient states he is feeling well. Denies current complaints. Awaiting pre-cert to SNF. - Physical Exam General: Alert, Oriented x3, Cooperative HEENT: Atraumatic, PERRLA, EOMI, Normocephalic Neck: Supple, No JVD, Negative Carotid Bruits Lungs: Clear to auscultation, Diminished Cardiovascular: Regular rate, Regular Rhythm, Normal S1, Normal S2, No murmurs Abdomen: Bowel Sounds Present, Soft, Non Tender, Non-Distended, Obese Extremities: No clubbing, No cyanosis, No edema, Capillary Refill Less than 3 Seconds Skin: No rashes, No breakdown Musculoskeletal: No Tenderness to Palpation of Joints or Extremities Neurological: Cranial nerves II-XII grossly intact, Neuro grossly intact Psych/Mental Status: Normal Affect, Appropriate Vital Signs Temp Pulse Resp BP Pulse Ox 98.6 F 64 20 H 126/64 H 94 08/12/18 10:00 08/12/18 11:00 08/12/18 10:00 08/12/18 10:00 08/12/18 10:00 Oxygen Flow Rate (L/min) 2 Oxygen Delivery Method Nasal Cannula Weight: 222 lb 7.143 oz Body Mass Index (BMI) 32.4 Intake and Output for Last 24 Hours 08/10/18 08/11/18 08/12/18 23:59 23:59 23:59 Intake Total 870 / 870 1295 / 1295 220 / 220 Output Total 480 / 480 1525 / 1525 300 / 300 Balance 390 / 390 -230 / -230 -80 / -80 Microbiology Past 72 Hours 08/07/18 16:37 Urine Culture - Final Urine, Clean Catch Staphylococcus warneri 08/07/18 16:05 Blood Culture - Preliminary Blood Culture (Wb) - Anticubital Right No growth in 48 hours. 08/07/18 15:40 Blood Culture - Preliminary Blood Culture (Wb) - Anticubital Left No growth in 48 hours. Laboratory Tests Past 24 Hrs 08/12/18 05:18 Sodium 142 Potassium 3.3 L Chloride 110 H Carbon Dioxide 23.0 Anion Gap 9 BUN 26 H Creatinine 1.14 Estim Creat Clear Calc 58.71 Est GFR (MDRD) Af Amer 80 Est GFR (MDRD) Non-Af 66 BUN/Creatinine Ratio 22.8 H Glucose 104 Calcium 8.1 L Medical Necessity - Tobacco Use Smoking Status: Never smoker Tobacco Use: Non-smoker Assessment/Plan All Active Problems (Last Updated 08/12/18 @ 08:43 by Robert Cartwright NP-C) Sepsis (Acute) NSTEMI (non-ST elevated myocardial infarction) (Acute) UTI (urinary tract infection) (Acute) Gross hematuria (Acute) Patient is a 78-year-old male admitted 08/07/2018 due to abdominal pain. He has a past medical history of hypertension, BPH. 1. Acute sepsis secondary to acute Staphylococcus warneri cystitis with associated hematuria-Urine culture + Staphylococcus warneri species. Blood cultures show no growth. IV Rocephin during admission. Transition to duricef 1gm BID to complete 14 days of treatment given complicated UTI. Mental status improved. Schwarz in place. Urology consulted for hematuria. Hematuria resolved. Patient will follow up with urology as outpatient with plan for renal imaging, urine cytology and cystoscopic evaluation. Okay for anticoagulation per urology. Leave schwarz in place until further outpatient evaluation by urology. 2. Acute kidney injury on chronic kidney disease stage III-Resolved with IV fluids. 3. Acute metabolic encephalopathy secondary to #1/#2. Improved. 4. CAD/NSTEMI status post PTCA/CHERYL- Dr. Dixon consulted. Patient underwent cardiac catheterization 08/09/2018 which demonstrated triple vessel CAD of the LCx, LAD and RCA. Patient underwent successful PTCA/CHERYL of proximal RCA, distal RCA, mid PDA. Patient will continue aspirin indefinitely, Plavix for at least 12 months. Stress test in 4 weeks to evaluate anterior wall for possible PCI to LAD. Per cardiology, would not pursue PCI of LCx. Patient will follow up with Dr. Dixon at discharge. Echocardiogram showed an EF of 40-45%, stage I diastolic dysfunction. 5. Acute hypoxic respiratory insufficiency-chest x-ray 08/10/2018 showed low lung volumes, mild patchy areas of density consistent with mild subsegmental atelectasis. Albuterol DuoNeb aerosols. Encourage incentive spirometer. Ambulation. Walking pulse ox prior to DC. 6. BPH-continue home doxazosin, oxybutynin. 7. Hypertension-continue home amlodipine, losartan regimen, beta ton. DVT prophylaxis- SCDs, heparin subcu. Discharge planning: [facility], SNF at discharge pending pre-CERT. Plans for eventual return to assisted living. SW [facility]. PT/OT. This patient was seen by AZRA Gallo under the supervision of Dr. Kirk. <Jonathon Kirk - Last Filed: 08/12/18 15:38> - Physical Exam General: Alert, Cooperative HEENT: Atraumatic, Normocephalic Oral: Moist Mucosa, No Gingival or Mucosal Lesions/ Ulcerations Lungs: Clear to auscultation, Diminished Cardiovascular: Regular rate, Regular Rhythm, Normal S1, Normal S2, No murmurs Abdomen: Bowel Sounds Present, Soft, Non Tender, Non-Distended, Obese Extremities: No edema, No Calf Tenderness Skin: No rashes, No breakdown Musculoskeletal: No Tenderness to Palpation of Joints or Extremities Psych/Mental Status: Normal Affect, Appropriate Vital Signs Temp Pulse Resp BP Pulse Ox 37.0 C 66 16 126/64 H 94 08/12/18 10:00 08/12/18 14:54 08/12/18 14:54 08/12/18 10:00 08/12/18 11:12 Oxygen Flow Rate (L/min) 2 Oxygen Delivery Method Nasal Cannula Weight: 100.9 kg Body Mass Index (BMI) 32.4 Intake and Output for Last 24 Hours 08/10/18 08/11/18 08/12/18 23:59 23:59 23:59 Intake Total 870 / 870 1295 / 1295 460 / 460 Output Total 480 / 480 1525 / 1525 650 / 650 Balance 390 / 390 -230 / -230 -190 / -190 Microbiology Past 72 Hours 08/07/18 16:37 Urine Culture - Final Urine, Clean Catch Staphylococcus warneri 08/07/18 16:05 Blood Culture - Preliminary Blood Culture (Wb) - Anticubital Right No growth in 48 hours. 08/07/18 15:40 Blood Culture - Preliminary Blood Culture (Wb) - Anticubital Left No growth in 48 hours. Laboratory Tests Past 24 Hrs 08/12/18 05:18 Sodium 142 Potassium 3.3 L Chloride 110 H Carbon Dioxide 23.0 Anion Gap 9 BUN 26 H Creatinine 1.14 Estim Creat Clear Calc 58.71 Est GFR (MDRD) Af Amer 80 Est GFR (MDRD) Non-Af 66 BUN/Creatinine Ratio 22.8 H Glucose 104 Calcium 8.1 L Assessment/Plan Patient seen and examined independently. Data reviewed. I agree with the above note by the nurse practitioner. 1. sepsis * Secondary to UTI 2. UTI * staphylococcus warneri cystitis * duricef 3. MERLIN: * resolved 4. Metabolic encephalopathy * resolved * 2/2 abuve 5. NSTEMI * s/p PCI to prox RCA, distal RCA and mid PDA. * DAPT * statin Code Visit Inpatient E&M: 14419 Subs Hosp L2
[2018-08-12] MEDS: Doxazosin 1 MG Tablet 2 MG PO (21:40)
[2018-08-12] MEDS: Cefadroxil 500 MG CAPSULE 1000 MG PO (21:41)
[2018-08-13] VITALS (13 sets, daily range): BP systolic 113–146; BP diastolic 59–76; PULSE 67–108; RESP 16–26; TEMP 36.8–37.4; O2SAT 91–97
[2018-08-13] MEDS: Ipratropium/Albuterol Sulfate 3 ML AMPUL.NEB INHALATION ×4 (07:05→19:04)
[2018-08-13 08:56] LABS: Anion Gap 7 (5-15); BUN 21 mg/dL (7-18); Calcium,Total 7.9 mg/dL (8.5-10.1); Chloride 112 mmol/L (98-107); Creatinine, Serum 1.05 mg/dL (0.70-1.30); EST Glomerular Filtration Rate 73 mL/min (>60); Est Glom Filt Rate - Afr Amer 88 mL/min (>60); Estimated Creatinine Clearance 63.75 ml/min; Glucose 122 mg/dL (74-106); Potassium 3.5 mmol/L (3.5-5.1); Sodium Level 143 mmol/L (136-145)
[2018-08-13] MEDS: Gabapentin 300 MG Capsule PO (09:05)
[2018-08-13] MEDS: amLODIPine 10 MG Tablet PO (09:06)
[2018-08-13] MEDS: Tolterodine Tartrate 2 MG CAP.SA PO (09:06)
[2018-08-13] MEDS: Cefadroxil 500 MG CAPSULE 1000 MG PO (09:06)
[2018-08-13] MEDS: Clopidogrel Bisulfate 75 MG Tablet PO (09:06)
[2018-08-13] MEDS: Aspirin E.C. 81 MG Tablet PO (09:06)
[2018-08-13] MEDS: Nebivolol HCl 10 MG Tablet PO (09:07)
[2018-08-13] MEDS: Losartan Potassium 25 MG Tablet PO (09:07)
[2018-08-13] MEDS: Heparin Injection (Vial) 5,000 UNIT/ML VIAL 5000 UNIT SC (09:10)
--- NOTE | 2018-08-13 11:18 | PCM.EXTCARCO ---
- Diet 08/09/18 14:09 Diet: Cardiac/Low Cholesterol Is pt able to select menu?: No - Routine Orders/Code Status Enema Type: Fleetz Enema Frequency: Daily PRN Suppository Type: Dulcolax 10mg Suppository Frequency: Daily PRN O2 Liters per Minute: 2 O2 Frequency: PRN Keep PO Greater than or Equal to (%): 90 Routine Lab Work: CBC, BMP, - - Q Week Code Status: Full Code - Wound(s) Right Groin Wound Type: Puncture - Suggestions for Active Care Change Position every (hours): 2 Times a day to sit in chair: 3 - Therapies Physical Therapy: Eval and Treat Occupational Therapy: Eval and Treat - Problem/Diagnosis (1) Essential (primary) hypertension Status: Chronic Current Visit: No (2) Sepsis Status: Acute Comment: 2/2 Cystitis Current Visit: Yes (3) NSTEMI (non-ST elevated myocardial infarction) Status: Acute Comment: July 2018; Current Visit: Yes (4) UTI (urinary tract infection) Status: Acute Current Visit: Yes (5) Gross hematuria Status: Acute Current Visit: Yes (6) Acute metabolic encephalopathy Status: Acute Current Visit: Yes (7) MERLIN (acute kidney injury) Status: Acute Current Visit: Yes - Allergies/Procedures Done in Hospital Allergies/Adverse Reactions: Allergies aspirin Allergy (Verified 08/07/18 15:10) Unknown Penicillins Allergy (Verified 08/07/18 15:10) Unknown Sulfa (Sulfonamide Antibiotics) Allergy (Verified 08/07/18 15:10) Unknown Procedures: 2-D Echocardiogram, Cardiac catheterization - Type of Care/Length of Stay Estimated LOS: Convalescent Care Less Than 30 days Type of Care Needed: Skilled Rehab Potential: Fair Prognosis: Fair - Additional Orders/Day of Discharge H&P will serve as current which was dated: 08/07/18 Day of Discharge: 08/13/18 - Dietary and Speech Recommendations Dietitian Recommendations/Changes: Recommend advancing ZIA to Cardiac/no added salt diet. Will d/c ensure enlive on medpass as pt is on a clear liquid diet. - Follow Up Care Primary Care Physician: Radhames Pierce [Primary Care Provider] - Please follow up with your Primary Care Physician in: 1 Week Please Follow Up With: Jameel Dixon MD When: 1-2 Weeks Please Follow Up With: Donald Melgar MD When: Within 1 Week
--- NOTE | 2018-08-13 11:24 | PCM.DC.SUM ---
<Jennifer Lewis - Last Filed: 08/13/18 11:30> Discharge Date and Diagnosis - Problem List Patient Problems: Active and Suspected Problems (Last Updated 08/13/18 @ 11:24 by AZRA Gallo) Acute metabolic encephalopathy (Acute) MERLIN (acute kidney injury) (Acute) Sepsis (Acute) 2/2 Cystitis NSTEMI (non-ST elevated myocardial infarction) (Acute) July 2018; UTI (urinary tract infection) (Acute) Gross hematuria (Acute) Date of Admission: 08/07/18 Date of Discharge: 08/13/18 - Primary Discharge Diagnosis Active and Suspected Problems (Last Updated 08/12/18 @ 08:43 by AZRA Desir) 1. Acute sepsis secondary to acute Staphylococcus warneri cystitis with associated hematuria 2. Acute kidney injury on chronic kidney disease stage III 3. Acute metabolic encephalopathy secondary to #1/#2 4. CAD/NSTEMI status post PTCA/CHERYL of proximal RCA, distal RCA and mid PDA 5. Acute hypoxic respiratory insufficiency - Secondary Discharge Diagnosis Chronic Problems (Last Updated 08/12/18 @ 08:43 by AZRA Desir) Essential (primary) hypertension (Chronic) Ischemic cardiomyopathy (Chronic) Atherosclerosis of [place] coronary artery of [place] heart without angina pectoris (Chronic) PTCA/CHERYL to proximal RCA, distal RCA, and mid PDA in July 2018 BPH Hospital Course and Treatment Imaging Results: Diagnostic Data Chest X-Ray 08/10/18 12:47 IMPRESSION: Continued low lung volumes. Mild patchy areas of density suggested in both lungs most consistent with areas of mild subsegmental atelectasis. Electronically Signed: Ata Ulloa MD at 15:56 EDT , Service support , Dr. Dixon- Cardiology Dr. Delgado- Urology Operations: None Procedures: 2-D Echocardiogram, Cardiac catheterization Summary of Care Provided: Patient is a 78-year-old male admitted 08/07/2018 due to abdominal pain. He has a past medical history of hypertension, BPH. 1. Acute sepsis secondary to acute Staphylococcus warneri cystitis with associated hematuria-Urine culture + Staphylococcus warneri species. Blood cultures show no growth. IV Rocephin during admission. Transition to duricef 1gm BID to complete 14 days of treatment given complicated UTI. Mental status improved. Schwarz in place. Urology consulted for hematuria. Hematuria resolved. Patient will follow up with urology as outpatient with plan for renal imaging, urine cytology and cystoscopic evaluation. Okay for anticoagulation per urology. Leave schwarz in place until further outpatient evaluation by urology. Follow-up with urology and primary care physician within 1 week. 2. Acute kidney injury on chronic kidney disease stage III-Resolved with IV fluids. 3. Acute metabolic encephalopathy secondary to #1/#2. Improved. 4. CAD/NSTEMI status post PTCA/CHERYL- Dr. Dixon consulted. Patient underwent cardiac catheterization 08/09/2018 which demonstrated triple vessel CAD of the LCx, LAD and RCA. Patient underwent successful PTCA/CHERYL of proximal RCA, distal RCA, mid PDA. Patient will continue aspirin indefinitely, Plavix for at least 12 months. Stress test in 4 weeks to evaluate anterior wall for possible PCI to LAD. Per cardiology, would not pursue PCI of LCx. Patient will follow up with Dr. Dixon at discharge in 1-2 weeks. Echocardiogram showed an EF of 40-45%, stage I diastolic dysfunction. 5. Acute hypoxic respiratory insufficiency-chest x-ray 08/10/2018 showed low lung volumes, mild patchy areas of density consistent with mild subsegmental atelectasis. Albuterol DuoNeb aerosols. Encourage incentive spirometer. Ambulation. Supplemental oxygen as needed at discharge to maintain O2 at or above 90%. 6. BPH-continue home doxazosin, oxybutynin. 7. Hypertension-continue home amlodipine, losartan regimen, beta getachew. Losartan regimen decreased to 25 mg daily. General: Alert, Oriented x3, Cooperative HEENT: Atraumatic, PERRLA, EOMI, Normocephalic Neck: Supple, No JVD, Negative Carotid Bruits Lungs: Clear to auscultation, Diminished Cardiovascular: Regular rate, Regular Rhythm, Normal S1, Normal S2, No murmurs Abdomen: Bowel Sounds Present, Soft, Non Tender, Non-Distended, Obese Extremities: No clubbing, No cyanosis, No edema, Capillary Refill Less than 3 Seconds Skin: No rashes, No breakdown Musculoskeletal: No Tenderness to Palpation of Joints or Extremities Neurological: Cranial nerves II-XII grossly intact, Neuro grossly intact Psych/Mental Status: Normal Affect, Appropriate Patient seen exam prior to discharge. Physical assessment as noted above. Patient stable for discharge to SNF with the follow-up recommendations as noted above. This patient was seen by AZRA Gallo under the supervision of Dr. Kirk. Patient Problems: Active and Suspected Problems (Last Updated 08/13/18 @ 11:24 by AZRA Gallo) Acute metabolic encephalopathy (Acute) MERLIN (acute kidney injury) (Acute) Sepsis (Acute) 2/2 Cystitis NSTEMI (non-ST elevated myocardial infarction) (Acute) July 2018; UTI (urinary tract infection) (Acute) Gross hematuria (Acute) - Physical Exam Vital Signs Temp Pulse Resp BP Pulse Ox 98.3 F 84 18 136/60 H 93 08/13/18 09:00 08/13/18 09:00 08/13/18 09:00 08/13/18 09:00 08/13/18 09:00 Oxygen Flow Rate (L/min) 1 Oxygen Delivery Method Room Air Weight: 224 lb 6.889 oz Body Mass Index (BMI) 32.4 Intake and Output for Last 24 Hours 08/11/18 08/12/18 08/13/18 23:59 23:59 23:59 Intake Total 1295 / 1295 940 / 940 0 / 0 Output Total 1525 / 1525 850 / 850 Balance -230 / -230 90 / 90 0 / 0 Microbiology Past 72 Hours 08/07/18 16:05 Blood Culture - Final Blood Culture (Wb) - Anticubital Right No growth in 5 days. 08/07/18 15:40 Blood Culture - Final Blood Culture (Wb) - Anticubital Left No growth in 5 days. 08/07/18 16:37 Urine Culture - Final Urine, Clean Catch Staphylococcus warneri Laboratory Tests Past 24 Hrs 08/13/18 07:48 Sodium 143 Potassium 3.5 Chloride 112 H Carbon Dioxide 24.0 Anion Gap 7 BUN 21 H Creatinine 1.05 Estim Creat Clear Calc 63.75 Est GFR (MDRD) Af Amer 88 Est GFR (MDRD) Non-Af 73 BUN/Creatinine Ratio 20.0 Glucose 122 H Calcium 7.9 L Home Medications: Medications to take at Discharge Amlodipine [Norvasc] 10 mg PO DAILY 08/07/18 Doxazosin Mesylate [Cardura] 2 mg PO QHS 08/07/18 Gabapentin [Neurontin] 300 mg PO BID 08/07/18 Nebivolol HCl [Bystolic (Beta Getachew)] 10 mg PO DAILY 08/07/18 Oxybutynin Chloride [Ditropan Xl] 10 mg PO DAILY 08/07/18 Albuterol Aerosols [Ventolin Aerosols] 2.5 mg INHALATION Q2H PRN PRN vial.neb. 08/13/18 Aspirin E.C. [Ecotrin] 81 mg PO DAILY@0800 tablet 08/13/18 Cefadroxil [Duricef] 1,000 mg PO BID capsule 08/13/18 Clopidogrel Bisulfate [Plavix] 75 mg PO DAILY tablet 08/13/18 Ipratropium/Albuterol Sulfate [Duoneb] 3 ml INHALATION Q4H.RT ampul.neb 08/13/18 Losartan Potassium [Cozaar] 25 mg PO DAILY tablet 08/13/18 Primary Care Physician: Radhames Pierce [Primary Care Provider] - Please follow up with your Primary Care Physician in: 1 Week Please Follow Up With: Jameel Dixon MD When: 1-2 Weeks Please Follow Up With: Donald Melgar MD When: Within 1 Week Disposition: Half-Way facility Minutes spent on discharge:: 35 Patient Condition:: Stable Medical Necessity - Tobacco Use Smoking Status: Never smoker Tobacco Use: Non-smoker Meaningful Use Info Meaningful Use Diagnoses (Choose all that apply): None applicable <Jonathon Kirk - Last Filed: 08/13/18 13:48> Discharge Date and Diagnosis - Secondary Discharge Diagnosis Chronic Problems (Last Updated 08/13/18 @ 11:24 by AZRA Gallo) Essential (primary) hypertension (Chronic) Ischemic cardiomyopathy (Chronic) Atherosclerosis of [place] coronary artery of [place] heart without angina pectoris (Chronic) PTCA/CHERYL to proximal RCA, distal RCA, and mid PDA in July 2018 Hospital Course and Treatment Operations: None Procedures: 2-D Echocardiogram, Cardiac catheterization Summary of Care Provided: Patient seen and examined independently. Data reviewed. I agree with the above note by the nurse practitioner. The patient is a 78 year old M presents with abdominal pain. 1. sepsis Secondary to UTI 2. UTI staphylococcus warneri cystitis duricef 3. MERLIN: resolved 4. Metabolic encephalopathy resolved 2/2 abuve 5. NSTEMI s/p PCI to prox RCA, distal RCA and mid PDA. DAPT statin 6. Debility: to SNF.[] - Physical Exam General: Alert, No apparent distress HEENT: Atraumatic, Normocephalic Oral: Moist Mucosa, No Gingival or Mucosal Lesions/ Ulcerations Neck: No Nodes, Thyroid Normal Size and Texture Lungs: Clear to auscultation, Normal air movement, No rhonchi, No wheeze Cardiovascular: Regular rate, Regular Rhythm, Normal S1, Normal S2 Abdomen: Bowel Sounds Present, Soft, Non Tender, Non-Distended, Obese Extremities: No clubbing, Edema Skin: No rashes, No breakdown Musculoskeletal: No Tenderness to Palpation of Joints or Extremities, No Muscle Wasting Psych/Mental Status: Normal Affect, Appropriate Vital Signs Temp Pulse Resp BP Pulse Ox 36.8 C 108 H 16 136/60 H 93 08/13/18 09:00 08/13/18 10:55 08/13/18 10:55 08/13/18 09:00 08/13/18 10:55 Oxygen Flow Rate (L/min) 1 Oxygen Delivery Method Room Air Weight: 101.8 kg Body Mass Index (BMI) 32.4 Intake and Output for Last 24 Hours 08/11/18 08/12/18 08/13/18 23:59 23:59 23:59 Intake Total 1295 / 1295 940 / 940 0 / 0 Output Total 1525 / 1525 850 / 850 Balance -230 / -230 90 / 90 0 / 0 Microbiology Past 72 Hours 08/07/18 16:05 Blood Culture - Final Blood Culture (Wb) - Anticubital Right No growth in 5 days. 08/07/18 15:40 Blood Culture - Final Blood Culture (Wb) - Anticubital Left No growth in 5 days. 08/07/18 16:37 Urine Culture - Final Urine, Clean Catch Staphylococcus warneri Laboratory Tests Past 24 Hrs 08/13/18 07:48 Sodium 143 Potassium 3.5 Chloride 112 H Carbon Dioxide 24.0 Anion Gap 7 BUN 21 H Creatinine 1.05 Estim Creat Clear Calc 63.75 Est GFR (MDRD) Af Amer 88 Est GFR (MDRD) Non-Af 73 BUN/Creatinine Ratio 20.0 Glucose 122 H Calcium 7.9 L Discharge Diet: Low fat/ Low Cholesterol Discharge Activity: Return to Normal Activity Call your doctor if you observe: Fever of 101 or Higher, Shortness of breath, Chest pain Disposition: Half-Way facility Minutes spent on discharge:: 35 Patient Condition:: Stable Meaningful Use Info Meaningful Use Diagnoses (Choose all that apply): AMI - AMI Aspirin given w/in 24hrs of arrival?: Yes ASA at discharge?: Yes Statins at discharge?: Yes Rohan/ARB at discharge?: Yes Beta Getachew at discharge?: Yes Done w/ Acute MT measure.: Yes Code Visit Inpatient E&M: 13089 Disch Hosp
--- NOTE | 2018-08-13 11:30 | DS.PCM_ITS ---
<Jennifer Lewis - Last Filed: 08/13/18 11:30> Discharge Date and Diagnosis - Problem List Patient Problems: Active and Suspected Problems (Last Updated 08/13/18 @ 11:24 by AZRA Gallo) Acute metabolic encephalopathy (Acute) MERLIN (acute kidney injury) (Acute) Sepsis (Acute) 2/2 Cystitis NSTEMI (non-ST elevated myocardial infarction) (Acute) July 2018; UTI (urinary tract infection) (Acute) Gross hematuria (Acute) Date of Admission: 08/07/18 Date of Discharge: 08/13/18 - Primary Discharge Diagnosis Active and Suspected Problems (Last Updated 08/12/18 @ 08:43 by ROJAS Desir) 1. Acute sepsis secondary to acute Staphylococcus warneri cystitis with associated hematuria 2. Acute kidney injury on chronic kidney disease stage III 3. Acute metabolic encephalopathy secondary to #1/#2 4. CAD/NSTEMI status post PTCA/CHERYL of proximal RCA, distal RCA and mid PDA 5. Acute hypoxic respiratory insufficiency - Secondary Discharge Diagnosis Chronic Problems (Last Updated 08/12/18 @ 08:43 by AZRA Desir) Essential (primary) hypertension (Chronic) Ischemic cardiomyopathy (Chronic) Atherosclerosis of [place] coronary artery of [place] heart without angina pectoris (Chronic) PTCA/CHERYL to proximal RCA, distal RCA, and mid PDA in July 2018 BPH Hospital Course and Treatment Imaging Results: Diagnostic Data Chest X-Ray 08/10/18 12:47 IMPRESSION: Continued low lung volumes. Mild patchy areas of density suggested in both lungs most consistent with areas of mild subsegmental atelectasis. Electronically Signed: Ata Ulloa MD at 15:56 EDT , Service support , Dr. Dixon- Cardiology Dr. Delgado- Urology Operations: None Procedures: 2-D Echocardiogram, Cardiac catheterization Summary of Care Provided: Patient is a 78-year-old male admitted 08/07/2018 due to abdominal pain. He has a past medical history of hypertension, BPH. 1. Acute sepsis secondary to acute Staphylococcus warneri cystitis with associated hematuria-Urine culture + Staphylococcus warneri species. Blood cultures show no growth. IV Rocephin during admission. Transition to duricef 1gm BID to complete 14 days of treatment given complicated UTI. Mental status improved. Schwarz in place. Urology consulted for hematuria. Hematuria resolved. Patient will follow up with urology as outpatient with plan for renal imaging, urine cytology and cystoscopic evaluation. Okay for anticoagulation per urology. Leave schwarz in place until further outpatient evaluation by urology. Follow-up with urology and primary care physician within 1 week. 2. Acute kidney injury on chronic kidney disease stage III-Resolved with IV fluids. 3. Acute metabolic encephalopathy secondary to #1/#2. Improved. 4. CAD/NSTEMI status post PTCA/CHERYL- Dr. Dixon consulted. Patient underwent cardiac catheterization 08/09/2018 which demonstrated triple vessel CAD of the LCx, LAD and RCA. Patient underwent successful PTCA/CHERYL of proximal RCA, distal RCA, mid PDA. Patient will continue aspirin indefinitely, Plavix for at least 12 months. Stress test in 4 weeks to evaluate anterior wall for possible PCI to LAD. Per cardiology, would not pursue PCI of LCx. Patient will follow up with Dr. Dixon at discharge in 1-2 weeks. Echocardiogram showed an EF of 40-45%, stage I diastolic dysfunction. 5. Acute hypoxic respiratory insufficiency-chest x-ray 08/10/2018 showed low lung volumes, mild patchy areas of density consistent with mild subsegmental atelectasis. Albuterol DuoNeb aerosols. Encourage incentive spirometer. Ambulation. Supplemental oxygen as needed at discharge to maintain O2 at or above 90%. 6. BPH-continue home doxazosin, oxybutynin. 7. Hypertension-continue home amlodipine, losartan regimen, beta getachew. Losartan regimen decreased to 25 mg daily. General: Alert, Oriented x3, Cooperative HEENT: Atraumatic, PERRLA, EOMI, Normocephalic Neck: Supple, No JVD, Negative Carotid Bruits Lungs: Clear to auscultation, Diminished Cardiovascular: Regular rate, Regular Rhythm, Normal S1, Normal S2, No murmurs Abdomen: Bowel Sounds Present, Soft, Non Tender, Non-Distended, Obese Extremities: No clubbing, No cyanosis, No edema, Capillary Refill Less than 3 Se conds Skin: No rashes, No breakdown Musculoskeletal: No Tenderness to Palpation of Joints or Extremities Neurological: Cranial nerves II-XII grossly intact, Neuro grossly intact Psych/Mental Status: Normal Affect, Appropriate Patient seen exam prior to discharge. Physical assessment as noted above. Patient stable for discharge to SNF with the follow-up recommendations as noted above. This patient was seen by AZRA Gallo under the supervision of Dr. Kirk. Patient Problems: Active and Suspected Problems (Last Updated 08/13/18 @ 11:24 by AZRA Gallo) Acute metabolic encephalopathy (Acute) MERLIN (acute kidney injury) (Acute) Sepsis (Acute) 2/2 Cystitis NSTEMI (non-ST elevated myocardial infarction) (Acute) July 2018; UTI (urinary tract infection) (Acute) Gross hematuria (Acute) - Physical Exam Vital Signs Temp Pulse Resp BP Pulse Ox 98.3 F 84 18 136/60 H 93 08/13/18 09:00 08/13/18 09:00 08/13/18 09:00 08/13/18 09:00 08/13/18 09:00 Oxygen Flow Rate (L/min) 1 Oxygen Delivery Method Room Air Weight: 224 lb 6.889 oz Body Mass Index (BMI) 32.4 Intake and Output for Last 24 Hours 08/11/18 08/12/18 08/13/18 23:59 23:59 23:59 Intake Total 1295 / 1295 940 / 940 0 / 0 Output Total 1525 / 1525 850 / 850 Balance -230 / -230 90 / 90 0 / 0 Microbiology Past 72 Hours 08/07/18 16:05 Blood Culture - Final Blood Culture (Wb) - Anticubital Right No growth in 5 days. 08/07/18 15:40 Blood Culture - Final Blood Culture (Wb) - Anticubital Left No growth in 5 days. 08/07/18 16:37 Urine Culture - Final Urine, Clean Catch Staphylococcus warneri Laboratory Tests Past 24 Hrs 08/13/18 07:48 Sodium 143 Potassium 3.5 Chloride 112 H Carbon Dioxide 24.0 Anion Gap 7 BUN 21 H Creatinine 1.05 Estim Creat Clear Calc 63.75 Est GFR (MDRD) Af Amer 88 Est GFR (MDRD) Non-Af 73 BUN/Creatinine Ratio 20.0 Glucose 122 H Calcium 7.9 L Home Medications: Medications to take at Discharge Amlodipine [Norvasc] 10 mg PO DAILY 08/07/18 Doxazosin Mesylate [Cardura] 2 mg PO QHS 08/07/18 Gabapentin [Neurontin] 300 mg PO BID 08/07/18 Nebivolol HCl [Bystolic (Beta Getachew)] 10 mg PO DAILY 08/07/18 Oxybutynin Chloride [Ditropan Xl] 10 mg PO DAILY 08/07/18 Albuterol Aerosols [Ventolin Aerosols] 2.5 mg INHALATION Q2H PRN PRN vial.neb. 08/13/18 Aspirin E.C. [Ecotrin] 81 mg PO DAILY@0800 tablet 08/13/18 Cefadroxil [Duricef] 1,000 mg PO BID capsule 08/13/18 Clopidogrel Bisulfate [Plavix] 75 mg PO DAILY tablet 08/13/18 Ipratropium/Albuterol Sulfate [Duoneb] 3 ml INHALATION Q4H.RT ampul.neb 08/13/18 Losartan Potassium [Cozaar] 25 mg PO DAILY tablet 08/13/18 Primary Care Physician: Radhames Pierce [Primary Care Provider] - Please follow up with your Primary Care Physician in: 1 Week Please Follow Up With: Jameel Dixon MD When: 1-2 Weeks Please Follow Up With: Donald Melgar MD When: Within 1 Week Disposition: [facility] facility Minutes spent on discharge:: 35 Patient Condition:: Stable Medical Necessity - Tobacco Use Smoking Status: Never smoker Tobacco Use: Non-smoker Meaningful Use Info Meaningful Use Diagnoses (Choose all that apply): None applicable <Jonathon Kirk - Last Filed: 08/13/18 13:48> Discharge Date and Diagnosis - Secondary Discharge Diagnosis Chronic Problems (Last Updated 08/13/18 @ 11:24 by AZRA Gallo) Essential (primary) hypertension (Chronic) Ischemic cardiomyopathy (Chronic) Atherosclerosis of [place] coronary artery of [place] heart without angina pectoris (Chronic) PTCA/CHERYL to proximal RCA, distal RCA, and mid PDA in July 2018 Hospital Course and Treatment Operations: None Procedures: 2-D Echocardiogram, Cardiac catheterization Summary of Care Provided: Patient seen and examined independently. Data reviewed. I agree with the above note by the nurse practitioner. The patient is a 78 year old M presents with abdominal pain. 1. sepsis * Secondary to UTI 2. UTI * staphylococcus warneri cystitis * duricef 3. MERLIN: * resolved 4. Metabolic encephalopathy * resolved * 2/2 abuve 5. NSTEMI * s/p PCI to prox RCA, distal RCA and mid PDA. * DAPT * statin 6. Debility: * to SNF.[] - Physical Exam General: Alert, No apparent distress HEENT: Atraumatic, Normocephalic Oral: Moist Mucosa, No Gingival or Mucosal Lesions/ Ulcerations Neck: No Nodes, Thyroid Normal Size and Texture Lungs: Clear to auscultation, Normal air movement, No rhonchi, No wheeze Cardiovascular: Regular rate, Regular Rhythm, Normal S1, Normal S2 Abdomen: Bowel Sounds Present, Soft, Non Tender, Non-Distended, Obese Extremities: No clubbing, Edema Skin: No rashes, No breakdown Musculoskeletal: No Tenderness to Palpation of Joints or Extremities, No Muscle Wasting Psych/Mental Status: Normal Affect, Appropriate Vital Signs Temp Pulse Resp BP Pulse Ox 36.8 C 108 H 16 136/60 H 93 08/13/18 09:00 08/13/18 10:55 08/13/18 10:55 08/13/18 09:00 08/13/18 10:55 Oxygen Flow Rate (L/min) 1 Oxygen Delivery Method Room Air Weight: 101.8 kg Body Mass Index (BMI) 32.4 Intake and Output for Last 24 Hours 08/11/18 08/12/18 08/13/18 23:59 23:59 23:59 Intake Total 1295 / 1295 940 / 940 0 / 0 Output Total 1525 / 1525 850 / 850 Balance -230 / -230 90 / 90 0 / 0 Microbiology Past 72 Hours 08/07/18 16:05 Blood Culture - Final Blood Culture (Wb) - Anticubital Right No growth in 5 days. 08/07/18 15:40 Blood Culture - Final Blood Culture (Wb) - Anticubital Left No growth in 5 days. 08/07/18 16:37 Urine Culture - Final Urine, Clean Catch Staphylococcus warneri Laboratory Tests Past 24 Hrs 08/13/18 07:48 Sodium 143 Potassium 3.5 Chloride 112 H Carbon Dioxide 24.0 Anion Gap 7 BUN 21 H Creatinine 1.05 Estim Creat Clear Calc 63.75 Est GFR (MDRD) Af Amer 88 Est GFR (MDRD) Non-Af 73 BUN/Creatinine Ratio 20.0 Glucose 122 H Calcium 7.9 L Discharge Diet: Low fat/ Low Cholesterol Discharge Activity: Return to Normal Activity Call your doctor if you observe: Fever of 101 or Higher, Shortness of breath, Chest pain Disposition: [facility] facility Minutes spent on discharge:: 35 Patient Condition:: Stable Meaningful Use Info Meaningful Use Diagnoses (Choose all that apply): AMI - AMI Aspirin given w/in 24hrs of arrival?: Yes ASA at discharge?: Yes Statins at discharge?: Yes Rohan/ARB at discharge?: Yes Beta Getachew at discharge?: Yes Done w/ Acute RI measure.: Yes Code Visit Inpatient E&M: 29799 Disch Hosp
--- NOTE | 2018-08-13 11:46 | PHA.DC.MR ---
Pharmacy Service has performed discharge medication reconciliation for this patient for transfer to [facility]. Medications to take at Discharge Amlodipine [Norvasc] 10 mg PO DAILY 08/07/18 Doxazosin Mesylate [Cardura] 2 mg PO QHS 08/07/18 Gabapentin [Neurontin] 300 mg PO BID 08/07/18 Nebivolol HCl [Bystolic (Beta Getachew)] 10 mg PO DAILY 08/07/18 Oxybutynin Chloride [Ditropan Xl] 10 mg PO DAILY 08/07/18 Albuterol Aerosols [Ventolin Aerosols] 2.5 mg INHALATION Q2H PRN PRN vial.neb. 08/13/18 Aspirin E.C. [Ecotrin] 81 mg PO DAILY@0800 tablet 08/13/18 Cefadroxil [Duricef] 1,000 mg PO BID capsule 08/13/18 Clopidogrel Bisulfate [Plavix] 75 mg PO DAILY tablet 08/13/18 Ipratropium/Albuterol Sulfate [Duoneb] 3 ml INHALATION Q4H.RT ampul.neb 08/13/18 Losartan Potassium [Cozaar] 25 mg PO DAILY tablet 08/13/18 The patient's discharge medication list was reviewed for discrepancies and discrepancies were resolved.
--- NOTE | 2018-08-13 13:54 | PN_ITS ---
<Jennifer Lewis - Last Filed: 08/13/18 13:54> Patient Problems: Active and Suspected Problems (Last Updated 08/13/18 @ 13:44 by Jonathon Kirk DO) Acute metabolic encephalopathy (Acute) MERLIN (acute kidney injury) (Acute) Sepsis (Acute) 2/2 Cystitis NSTEMI (non-ST elevated myocardial infarction) (Acute) July 2018; UTI (urinary tract infection) (Acute) Gross hematuria (Acute) Subjective: Patient seen and examined. Mental status improved. No acute events overnight. Awaiting pre-CERT to SNF. - Physical Exam General: Alert, Oriented x3, Cooperative, No apparent distress HEENT: Atraumatic, PERRLA, EOMI, Normocephalic Neck: Supple, No JVD, Negative Carotid Bruits Lungs: Clear to auscultation, Diminished Cardiovascular: Regular rate, Regular Rhythm, Normal S1, Normal S2, No murmurs Abdomen: Bowel Sounds Present, Soft, Non Tender, Non-Distended, Obese Extremities: No clubbing, No cyanosis, No edema, Capillary Refill Less than 3 Seconds Skin: No rashes, No breakdown Musculoskeletal: No Tenderness to Palpation of Joints or Extremities Neurological: Cranial nerves II-XII grossly intact, Neuro grossly intact Psych/Mental Status: Normal Affect, Appropriate Vital Signs Temp Pulse Resp BP Pulse Ox 98.3 F 83 16 136/60 H 93 08/13/18 09:00 08/13/18 12:13 08/13/18 10:55 08/13/18 09:00 08/13/18 10:55 Oxygen Flow Rate (L/min) 1 Oxygen Delivery Method Room Air Weight: 224 lb 6.889 oz Body Mass Index (BMI) 32.4 Intake and Output for Last 24 Hours 08/11/18 08/12/18 08/13/18 23:59 23:59 23:59 Intake Total 1295 / 1295 940 / 940 0 / 0 Output Total 1525 / 1525 850 / 850 Balance -230 / -230 90 / 90 0 / 0 Microbiology Past 72 Hours 08/07/18 16:05 Blood Culture - Final Blood Culture (Wb) - Anticubital Right No growth in 5 days. 08/07/18 15:40 Blood Culture - Final Blood Culture (Wb) - Anticubital Left No growth in 5 days. 08/07/18 16:37 Urine Culture - Final Urine, Clean Catch Staphylococcus warneri Laboratory Tests Past 24 Hrs 08/13/18 07:48 Sodium 143 Potassium 3.5 Chloride 112 H Carbon Dioxide 24.0 Anion Gap 7 BUN 21 H Creatinine 1.05 Estim Creat Clear Calc 63.75 Est GFR (MDRD) Af Amer 88 Est GFR (MDRD) Non-Af 73 BUN/Creatinine Ratio 20.0 Glucose 122 H Calcium 7.9 L Medical Necessity - Tobacco Use Smoking Status: Never smoker Tobacco Use: Non-smoker Assessment/Plan All Active Problems (Last Updated 08/13/18 @ 13:44 by Jonathon Kirk DO) Acute metabolic encephalopathy (Acute) MERLIN (acute kidney injury) (Acute) Sepsis (Acute) NSTEMI (non-ST elevated myocardial infarction) (Acute) UTI (urinary tract infection) (Acute) Gross hematuria (Acute) Patient is a 78-year-old male admitted 08/07/2018 due to abdominal pain. He has a past medical history of hypertension, BPH. 1. Acute sepsis secondary to acute Staphylococcus warneri cystitis with associated hematuria-Urine culture + Staphylococcus warneri species. Blood cultures show no growth. IV Rocephin during admission. Transition to duricef 1gm BID to complete 14 days of treatment given complicated UTI. Mental status improved. Schwarz in place. Urology consulted for hematuria. Hematuria resolved. Patient will follow up with urology as outpatient with plan for renal imaging, urine cytology and cystoscopic evaluation. Okay for anticoagulation per urology. Leave schwarz in place until further outpatient evaluation by urology. 2. Acute kidney injury on chronic kidney disease stage III-Resolved with IV fluids. 3. Acute metabolic encephalopathy secondary to #1/#2. Improved. 4. CAD/NSTEMI status post PTCA/CHERYL- Dr. Dixon consulted. Patient underwent cardiac catheterization 08/09/2018 which demonstrated triple vessel CAD of the LCx, LAD and RCA. Patient underwent successful PTCA/CHERYL of proximal RCA, distal RCA, mid PDA. Patient will continue aspirin indefinitely, Plavix for at least 12 months. Stress test in 4 weeks to evaluate anterior wall for possible PCI to LAD. Per cardiology, would not pursue PCI of LCx. Patient will follow up with Dr. Dixon at discharge. Echocardiogram showed an EF of 40-45%, stage I diastolic dysfunction. 5. Acute hypoxic respiratory insufficiency-chest x-ray 08/10/2018 showed low lung volumes, mild patchy areas of density consistent with mild subsegmental atelectasis. Albuterol DuoNeb aerosols. Encourage incentive spirometer. Ambulation. Walking pulse ox prior to DC. 6. BPH-continue home doxazosin, oxybutynin. 7. Hypertension-continue home amlodipine, losartan regimen, beta ton. DVT prophylaxis- SCDs, heparin subcu. Discharge planning: SW, SNF at discharge pending pre-CERT. Plans for eventual return to assisted living. SW following. PT/OT. This patient was seen by AZRA Gallo under the supervision of Dr. Kirk. <Jonathon Kirk - Last Filed: 08/13/18 14:12> - Physical Exam General: Alert, No apparent distress HEENT: Atraumatic, Normocephalic Lungs: Clear to auscultation, Diminished Cardiovascular: Regular rate, Regular Rhythm, Normal S1, Normal S2, No murmurs Abdomen: Bowel Sounds Present, Soft, Non Tender, Non-Distended, Obese Extremities: No edema, No Calf Tenderness Skin: No rashes, No breakdown Psych/Mental Status: Normal Affect, Appropriate Vital Signs Temp Pulse Resp BP Pulse Ox 36.8 C 83 16 136/60 H 93 08/13/18 09:00 08/13/18 12:13 08/13/18 10:55 08/13/18 09:00 08/13/18 10:55 Oxygen Flow Rate (L/min) 1 Oxygen Delivery Method Room Air Weight: 101.8 kg Body Mass Index (BMI) 32.4 Intake and Output for Last 24 Hours 08/11/18 08/12/18 08/13/18 23:59 23:59 23:59 Intake Total 1295 / 1295 940 / 940 0 / 0 Output Total 1525 / 1525 850 / 850 Balance -230 / -230 90 / 90 0 / 0 Microbiology Past 72 Hours 08/07/18 16:05 Blood Culture - Final Blood Culture (Wb) - Anticubital Right No growth in 5 days. 08/07/18 15:40 Blood Culture - Final Blood Culture (Wb) - Anticubital Left No growth in 5 days. 08/07/18 16:37 Urine Culture - Final Urine, Clean Catch Staphylococcus warneri Laboratory Tests Past 24 Hrs 08/13/18 07:48 Sodium 143 Potassium 3.5 Chloride 112 H Carbon Dioxide 24.0 Anion Gap 7 BUN 21 H Creatinine 1.05 Estim Creat Clear Calc 63.75 Est GFR (MDRD) Af Amer 88 Est GFR (MDRD) Non-Af 73 BUN/Creatinine Ratio 20.0 Glucose 122 H Calcium 7.9 L Assessment/Plan Patient seen and examined independently. Data reviewed. I agree with the above note by the nurse practitioner. 1. sepsis * Secondary to UTI 2. UTI * staphylococcus warneri cystitis * duricef 3. MERLIN: * resolved 4. Metabolic encephalopathy * resolved * 2/2 abuve 5. NSTEMI * s/p PCI to prox RCA, distal RCA and mid PDA. * DAPT * statin * 6. Debility * to SNF pending precertification. Code Visit Inpatient E&M: 72535 Subs Hosp L2
--- NOTE | 2018-08-13 16:24 | CASEMGMT ---
Received insurance approval for patient to go to [facility]. FANY faxed orders. Completed convalescent on HENS. Called [facility] and arranged for patient to get picked up at via cot. FANY called patient's POAMatt and let him know about d/c and brick picker time. He said he will notify the rest of the family. FANY notified RN who notified patient, charge preparation technician, executive legal secretary, and Esperanza at [facility]. Plan: [facility] under skilled level of care on a convalescent stay. [facility] transported patient via cot. Madelin GOFF MSW
--- NOTE | 2018-08-13 18:53 | NURSING ---
REPORT CALLED TO [facility] SHAHZAD BANSAL [phone]
== END 2018-08-13 20:15 | disposition skilled nursing facility (03) | DRG 853 ==
LOC: ED 15:43 → PCU 17:55 → ICU 08-09 09:25 → PCU 08-10 16:29
PROVIDERS: Internal Medicine; Internal Medicine Cardiovascular Disease; Nurse Practitioner Family; Physician Assistant; Admitting Provider Internal Medicine; Emergency Provider Emergency Medicine; Family Provider Family Medicine; PCP Family Medicine; Referring Provider Internal Medicine
DX: A41.1 Sepsis due to other specified staphylococcus (principal); I21.4 Non-ST elevation (NSTEMI) myocardial infarction; G93.41 Metabolic encephalopathy; N17.9 Acute kidney failure, unspecified; N30.01 Acute cystitis with hematuria; B95.7 Other staphylococcus as the cause of diseases classified elsewhere; R06.89 Other abnormalities of breathing; R09.02 Hypoxemia; I12.9 Hypertensive chronic kidney disease with stage 1 through stage 4 chronic kidney disease, or unspecified chronic kidney disease; N18.3 Chronic kidney disease, stage 3 (moderate); I25.5 Ischemic cardiomyopathy; I25.10 Atherosclerotic heart disease of native coronary artery without angina pectoris
CPT/HCPCS: 36415; 71045; 80048; 80053; 80061; 81001; 82550; 83605; 84484; 85025; 85027; 85347; 85610; 85730; 87040; 87077; 87086; 87088; 87186; 87804; 92928; 93005; 93306; 93458; 94640; 97162; 97165; 97530; 97535; 97802; 99285; C1760; J7030; P9612; A4216; C1725; C1757; C1769; C1874; C1887; C1894; C9600; Q9967

== ENCOUNTER → 2018-09-04 12:28 | Outpatient (CLI) | payer MEDICARE, SELFPAY ==
[2018-08-09 11:29] VITALS: BMI 29.4
--- NOTE | 2018-09-04 12:30 | STEWCON_ITS ---
Stress Results Protocol: Dobutamine Stress Echo Maximum Predicted HR: 144 bpm Target HR: 122 bpm % Maximum Predicted HR: 85 % DurationHeart Rate Stage (mm:ss) (bpm) BP Comment Baseline 60 140/79Diluted Definity 7 ML Given; No Chest Pain DSE 10 MCG 3:41 60 104/44No Chest Pain DSE 20 MCG 3:00 86 98/50 No Chest Pain DSE 30 MCG 3:00 117 124/64Atroping 0.25 MG IVP; No Chest Pain DSE 40 MCG 2:58 122 122/48No Chest Pain Recovery 99 120/54No Chest Pain Stress Duration: 12:39 mm:ss Maximum Stress HR: 122 bpm METS: 1 Baseline Echocardiogram Findings The estimated ejection fraction is 50 %. Stress Echo Wall motion Data Resting WM Intermediate WM Stress WM Resting Wall Motion Wall Motion Stress Infero-Basal: Mildly hypokinetic. Mid-Anterior : Mildly hypokinetic. Mid-anteroseptal : Mildly hypokinetic. Anterior Barnhart : Severly Hypokinetic. EKG Data The baseline ECG displays normal sinus rhythm. The patient was titrated from 10 mcg to a maximum of 40 mcg of dobutamine during the stress. The maximum heart rate attained was 130 beats per minute. This was 90% of maximum predicted heart rate. During dobutamine infusion, there were no ST or T wave changes noted to suggest ischemia. No clinical angina was noted. Interpretation Summary The study was technically difficult. Contrast injection was performed. The estimated ejection fraction is 50 %. Abnormal, adequate, dobutamine echocardiogram. Positive for ischemia based upon echocardiographic criteria. No anginal symptoms noted. The patient developed anterior and apical hypokinesis at peak infusion. Appropriate blood pressure response to dobutamine. Rare PVC noted. Final LVEF of 55%. Test terminated due to the attainment of target heart rate. Patient was encouraged to go to our office to be arranged for elective PCI of his LAD but he declined at this time. He has a follow-up visit with us next week and we will make arrangements at that time. Ordering Physician: Robert Cartwright Referring Physician: Jameel Dixon MD Performed By: Rhiannon Quintana RDCS
== END ==
PROVIDERS: Family Provider Family Medicine; PCP Family Medicine; Referring Provider Nurse Practitioner Family; Visit Provider Nurse Practitioner Family
DX: I25.10 Atherosclerotic heart disease of native coronary artery without angina pectoris (principal); I21.4 Non-ST elevation (NSTEMI) myocardial infarction; I25.5 Ischemic cardiomyopathy; I10 Essential (primary) hypertension
CPT/HCPCS: 93017; 93350; J7040; Q9957; A4216; C8928

== ENCOUNTER → 2020-03-01 14:03 | Outpatient (CLI) | payer MEDICARE, SELFPAY ==
[2018-08-09 11:29] VITALS: BMI 29.4
[2019-10-09 13:59] VITALS: BMI 34.0
== END ==
PROVIDERS: PCP Family Medicine; Visit Provider Nurse Practitioner Adult Health
DX: J98.8 Other specified respiratory disorders (principal)
CPT/HCPCS: 87635; U0004